=== PATIENT | male | born 1965 | race Caucasian/White ===

== ENCOUNTER 2019-11-12 16:15 | IRF | payer MEDICAID, SELFPAY ==
[2019-11-12 16:10] VITALS: BP 128/70; PULSE 18; RESP 94; TEMP 36.1; O2SAT 100; BMI 28.0
[2019-11-12 16:31] VITALS: BMI 28.0
--- NOTE | 2019-11-12 18:19 | ADMGEN ---
This patient, Jimbo Osborn, was admitted to [facility] Room 226-02. Patient/family oriented to hospital policies and general routines including ID bracelet, bed and alarms, visiting hours, pain management, procedures, bathroom and other care routines, personal items, smoking policy, room service/diet, and visiting hours. Valuables list has been completed. Information on how to activate the Rapid Response Team has been discussed. Patient/Family are encouraged to report perceived risks to care and to ask questions if they do not understand what they are told or what they should do.
[2019-11-12] MEDS: ACETAMINOPHEN 500 MG TABLET 1000 MG PO ×2 (18:26→23:33)
[2019-11-12] MEDS: ENOXAPARIN 40 MG/0.4 ML SYRINGE SUB-Q (20:06)
[2019-11-12 22:00] VITALS: BP 140/61; PULSE 94; RESP 17; TEMP 36.1; O2SAT 100
[2019-11-13 04:55] LABS: Basophils Percent Auto 0.5 % (0.2-1.2); Eosinophils Absolute Auto 0.5 K/mm3 (0-0.3); Eosinophils Percent Auto 6.4 % (0-4.4); Hemoglobin 10.6 g/dL (14.0-18.0); Immature Granulocyte Absolute 0.04 K/mm3 (0.00-0.031); Immature Granulocyte Percent A 0.5 % (0-0.5); Lymphocytes Absolute Auto 1.67 K/mm3 (0.9-3.2); Lymphocytes Percent Auto 22.8 % (18.3-44.2); Mean Corpuscular HGB Conc 34.2 g/dl (32-36); Mean Corpuscular Hemoglobin 31.8 pg (26-34); Mean Corpuscular Volume 93.1 fl (80-100); Mean Platelet Volume 8.3 fl (7.4-10.4); Monocytes Absolute Auto 0.8 K/mm3 (0.1-0.6); Monocytes Percent Auto 11.2 % (2.6-8.5); Neutrophils Absolute Auto 4.3 K/mm3 (1.3-6.7); Neutrophils Percent Auto 58.6 % (45.5-73.1); Platelet Count Result 488 k/mm3 (150-375); Red Blood Count 3.33 M/mm3 (4.6-6.20); Red Cell Distribution Width 17.4 % (11.5-14.5); White Blood Count 7.3 K/mm3 (4.5-10.0)
[2019-11-13 05:11] LABS: Blood Urea Nitrogen 7 mg/dL (9-20); Carbon Dioxide 25 mmol/L (22-30); Chloride 90 mmol/L (98-107); Estimated CRCL calculation 197 ml/min; Estimated Glomerular Filt Rate > 60; Glucose 103 mg/dL (75-110); Potassium 4.3 mmol/L (3.4-5.0); Sodium 124 mmol/L (137-145)
[2019-11-13 05:52] VITALS: BP 120/64; PULSE 97; RESP 18; TEMP 36.3; O2SAT 100
[2019-11-13] MEDS: ACETAMINOPHEN 500 MG TABLET 1000 MG PO ×3 (06:02→17:57)
[2019-11-13] MEDS: FOLIC ACID 1 MG TABLET PO (10:11)
[2019-11-13] MEDS: THERAPEUTIC MULTIVITAMINS/MINERALS TAB (*BKC) 1 TABLET PO (10:11)
[2019-11-13] MEDS: lisinopriL 20 MG TABLET PO (10:11)
[2019-11-13] MEDS: NICOTINE (*PBKC) 21 MG PATCH 1 PATCH TRANSDERM (10:11)
[2019-11-13] MEDS: THIAMINE HCL 100 MG TABLET PO (10:12)
[2019-11-13] MEDS: polyethylene glycoL 3350 17 GM POWD.PACK PO (10:12)
--- NOTE | 2019-11-13 11:00 | WPDREHABHP ---
H&P: HPI History of Present Illness Chief complaint: Right AKA Narrative: Jimbo Osborn is a 54 year old male HISTORY OF PRESENT ILLNESS: The patient's primary rehab impairment category is amputation lower extremity The etiologic diagnosis is gangrene to right lower extremity I saw this patient [id number] on November 13, 2019 at 11:00 a.m. The patient is a 53-year-old right-handed gentleman with a past medical history of peripheral artery disease, hypertension, and alcohol abuse who presented to [facility] on November 06, 2019 for and semi elective right above knee amputation. The patient was directly admitted to vascular surgery for worsening right lower extremity wounds with gangrene. Vasculature as recommended surgical intervention. Patient underwent an above the knee amputation with on November 07, 2019. Postoperatively the patient has experienced hyponatremia, fever, and leukocytosis. His hyponatremia was improved with free water restriction and is currently 126 when the patient was screened however it is 124 here at our hospital. The patient has been afebrile. Leukocytosis has improved to 8800 currently UA was negative chest x-ray with minimal right basilar atelectasis. The patient denied any pain since removal of his leg but does have an or oral pain medication if he needs it. He has demonstrated no signs of alcohol withdrawal and has been counseled by physician this hospitalization on his need for alcohol and tobacco cessation. The patient is awake and alert x4 he is on Lovenox 40 milligram daily for DVT prophylaxis. amputation shield is in place to right lower extremity Therapy was initiated at the acute care facility and the patient transferred to us from [facility] on November 12, 2019 FALLS OR SURGERIES: The patient has had major surgeries in the 100 days prior to admission. They had falls in the past year. They had falls with injury in the past year. PAST MEDICAL HISTORY: alcohol abuse, gangrene, ischemic toe, right foot, 4th digit, lower extremity edema, pleural effusion peripheral vascular disease peripheral neuropathy PAST SURGICAL HISTORY: 4th and 5th the right metatarsal amputation, 4th and 5th right toe amputation revision with wound VAC placement, thoracentesis, tonsillectomy SOCIAL HISTORY: current every day smoker, alcohol use, no drug abuse. FAMILY HISTORY: Is not related to patient's present clinical condition PRIOR LEVEL OF FUNCTION: Eating was INDEPENDENT Oral Care was INDEPENDENT Toileting Hygiene was INDEPENDENT Shower/Bathing was INDEPENDENT Upper Body Dressing was INDEPENDENT Lower Body Dressing was INDEPENDENT Donning/[place] Footwear was INDEPENDENT Rolling Left and Right was INDEPENDENT Sit to Lying was INDEPENDENT Lying to Sitting was INDEPENDENT Sit to Stand was INDEPENDENT Bed to Chair Transfers was INDEPENDENT Toilet Transfers was INDEPENDENT Walking was INDEPENDENT 750 feet with rolling walker Wheelchair Mobility was NOT APPLICABLE PRIOR TO ADMISSION Stairs were INDEPENDENT CURRENT LEVEL OF FUNCTION: Eating was independent Oral Care was partial assistance Toileting Hygiene was partial cyst Shower/Bathing was partial assistance Upper Body Dressing was partial assistance Lower Body Dressing was partial assistance Donning/[place] Footwear was partial assistance Rolling Left and Right was supervision Sit to Lying was supervision Lying to Sitting was supervision Sit to Stand was partial cyst Bed to Chair Transfers were partial status Toilet Transfers were partial assistance Walking was substantial assistance for 1 foot with rolling walker Wheelchair Mobility was not tested Stairs were not tested GOALS: Our therapists will evaluate the patient and establish the goals. However, upon pre-admission screening, the expected goals were to be INDEPENDENT with self-care, INDEPENDENT with transfers, an
[2019-11-13 14:00] VITALS: BP 103/53; PULSE 108; RESP 18; TEMP 36.2; O2SAT 98
[2019-11-13 14:15] VITALS: BMI 28.0
[2019-11-13] MEDS: ENOXAPARIN 40 MG/0.4 ML SYRINGE SUB-Q (21:00)
[2019-11-13 22:00] VITALS: BP 100/65; PULSE 87; RESP 18; TEMP 36.3; O2SAT 93
[2019-11-14] MEDS: ACETAMINOPHEN 500 MG TABLET 1000 MG PO ×4 (03:46→17:44)
[2019-11-14 05:23] LABS: Blood Urea Nitrogen 11 mg/dL (9-20); Calcium 9.8 mg/dL (8.4-10.2); Carbon Dioxide 29 mmol/L (22-30); Chloride 89 mmol/L (98-107); Estimated CRCL calculation 137 ml/min; Estimated Glomerular Filt Rate > 60; Glucose 102 mg/dL (75-110); Potassium 4.6 mmol/L (3.4-5.0); Sodium 128 mmol/L (137-145)
[2019-11-14 06:00] VITALS: BP 122/66; PULSE 93; RESP 18; TEMP 36.6; O2SAT 99
[2019-11-14 08:00] VITALS: PULSE 93; RESP 18; O2SAT 98
[2019-11-14] MEDS: THIAMINE HCL 100 MG TABLET PO (10:18)
[2019-11-14] MEDS: polyethylene glycoL 3350 17 GM POWD.PACK PO (10:19)
[2019-11-14] MEDS: THERAPEUTIC MULTIVITAMINS/MINERALS TAB (*BKC) 1 TABLET PO (10:19)
[2019-11-14] MEDS: lisinopriL 20 MG TABLET PO (10:19)
[2019-11-14] MEDS: NICOTINE (*PBKC) 21 MG PATCH 1 PATCH TRANSDERM (10:19)
[2019-11-14] MEDS: FOLIC ACID 1 MG TABLET PO (10:19)
--- NOTE | 2019-11-14 12:20 | WPDNEURORHBP ---
Subjective Date/time seen: 11/14/19 12:20 Interval history: patient is doing fairly well his hyponatremia although still present is better than yesterday No new complaints raised Review of Systems Constitutional: Constitutional: Reports no additional constitutional complaints Eyes: Eyes: Reports no additional eye complaints ENT: Reports system reviewed and no additional complaints, except as documented Cardiovascular: Cardiovascular: Reports no additional cardiovascular complaints Respiratory: Respiratory: Reports no additional respiratory complaints Gastrointestinal: Gastrointestinal: Reports no additional gastrointestinal complaints Genitourinary: Genitourinary: Reports no additional male genitourinary complaints Musculoskeletal: Musculoskeletal: Reports no additional musculoskeletal complaints Integumentary/Breasts: Skin/Breast: Reports system reviewed and no additional complaints, except as docu Neurologic: Reports system reviewed and no additional complaints, except as documented Psychiatric: Psychiatric: Reports no additional psychiatric complaints Functional Status Ambulation Ability Ability to Ambulate 10 Feet: Contact Guard Ability to Ambulate 50 Feet With 2 Turns: Minimum Assistance X 1 Ambulation Assistive Devices: Walker, Wheeled Transfers Ability Ability to Transfer In/Out of Chair: Minimum Assistance X 1 Exam Const: General: comfortable and no acute distress HENMT: General nose exam: Normal nares present Mouth: Yes moist mucous membranes Eyes: General: appearance normal, both eyes and all related structures Neck: Neck: supple and no JVD Resp: Effort & Inspection: normal respiratory effort Auscultation: clear to auscultation bilaterally Cardio: Rate: regular rate Rhythm: regular rhythm GI: GI Palp: Yes Soft to palpation Auscultation: normal bowel sounds : Male General Exam: Yes normal external exam Skin: General skin exam: normal color and no rashes or lesions noted Neuro: Other: patient's mental status is normal cranial exam is normal he has generalized decrease in the strength of both upper lower extremities along with the right above the knee amputation with evidence of peripheral neuropathy and peripheral vascular disease Extrem: Other: right above knee amputation Psych: Mental Status: mental status grossly normal Objective Data Vital Signs Vital Signs: Vital Signs - 24 hr 11/13/19 14:00 11/13/19 22:00 11/14/19 06:00 Temperature 36.2 C L 36.3 C L 36.6 C Pulse Rate 108 H 87 93 Respiratory Rate 18 18 18 Blood Pressure 103/53 L 100/65 122/66 Pulse Oximetry 98 93 99 Intake/Output Intake/Output: Intake & Output 11/11/19 11/12/19 11/13/19 11/14/19 23:59 23:59 23:59 23:59 Intake Total 240 600 480 Balance 240 600 480 Meds/Results Medications: Active Medications Generic Name Dose Route Start Last Admin Trade Name Freq PRN Reason Stop Dose Admin Acetaminophen 1,000 mg 11/12/19 18:00 11/14/19 05:55 Tylenol Tablet PO 1,000 mg Q6HR HUBERT Administration Albuterol 2 puff 11/12/19 17:16 Proventil Hfa INHALATION Q6H PRN Wheezing Enoxaparin Sodium 40 mg 11/12/19 21:00 11/13/19 21:00 Lovenox SUB-Q 40 mg HS HUBERT Administration Folic Acid 1 mg 11/13/19 09:00 11/14/19 10:19 Folic Acid PO 1 mg DAILY HUBERT Administration Lisinopril 20 mg 11/13/19 09:00 11/14/19 10:19 Prinivil PO 20 mg DAILY HUBERT Administration Methocarbamol 500 mg 11/12/19 17:16 Robaxin PO BID PRN Muscle Spasm Multivitamins/Calcium 1 tablet 11/13/19 09:00 11/14/19 10:19 Therapeutic Multivitamins/Minerals PO 1 tablet DAILY HUBERT Administration Nicotine 1 patch 11/13/19 09:00 11/14/19 10:19 Nicoderm Cq 21 Mg TRANSDERM 1 patch DAILY HUBERT Administration Polyethylene Glycol 17 gm 11/13/19 09:00 11/14/19 10:19 Miralax PO 17 gm DAILY HUBERT Administration Thiamine HCl 100 mg 11/13/19 09:00 0
[2019-11-14 14:00] VITALS: BP 111/61; PULSE 93; RESP 18; TEMP 36.6; O2SAT 98
[2019-11-14 20:10] LABS: Glucose Point of Care 112 (65-105)
[2019-11-14] MEDS: ENOXAPARIN 40 MG/0.4 ML SYRINGE SUB-Q (20:44)
[2019-11-14 22:00] VITALS: BP 107/67; PULSE 60; RESP 19; TEMP 36.4; O2SAT 97
[2019-11-15] MEDS: ACETAMINOPHEN 500 MG TABLET 1000 MG PO ×4 (00:20→23:50)
[2019-11-15 06:00] VITALS: BP 126/69; PULSE 83; RESP 18; TEMP 36.3; O2SAT 97
[2019-11-15] MEDS: THIAMINE HCL 100 MG TABLET PO (09:12)
[2019-11-15] MEDS: polyethylene glycoL 3350 17 GM POWD.PACK PO (09:12)
[2019-11-15] MEDS: FOLIC ACID 1 MG TABLET PO (09:12)
[2019-11-15] MEDS: THERAPEUTIC MULTIVITAMINS/MINERALS TAB (*BKC) 1 TABLET PO (09:12)
[2019-11-15] MEDS: NICOTINE (*PBKC) 21 MG PATCH 1 PATCH TRANSDERM (09:12)
[2019-11-15] MEDS: lisinopriL 20 MG TABLET PO (09:12)
--- NOTE | 2019-11-15 12:50 | RPD ---
INDIVIDUALIZED PLAN OF CARE FOR Jimbo Osborn Brief Synthesis of Pre-Admission Screen, Post-Admission Evaluation and Therapy Evaluations: The patient presents to rehab with gangrene to right lower extremity. Comorbidities include status post right above knee amputation, hypertension, diastolic dysfunction (impaired relaxation), peripheral arterial disease, gangrene, obesity, hyponatremia.The patient requires physician services for medical oversight, management of post-op complications in the setting of present comorbidities, management of hyponatremia and pain management. Post-op complications have included leukocytosis, fever, and hyponatremia. The patient requires nursing services for anticoagulation therapy, DVT prophylactics, infection protection, medication management and education, pressure relief, and wound care. Deficits include:ADLs, Balance, Endurance, Mobility, Pain Management, ROM, Safety, Strength,Transfers Building Inspection Engineer/Case Management for: Discharge Planning and Patient/Family Counseling Physical Therapy: 5 days per week for 90 minutes. Treatments may include: Therapeutic Exercise, Gait Training, Neuromuscular Re-education, Transfer Training, Community Reintegration, Bed Mobility, Patient/Family Education, Wheelchair Mobility Group Therapy/Concurrent Therapy Rationales: -Improve attention span during functional activities in a distracted environment. -Enhance problem solving and/or adequate judgment skills during functional activities in a distracted environment. -Promote increased safety awareness in a distracted environment to reduce fall risk with functional tasks, transfers, and ambulation to allow a more safe, self-sufficient return to the home environment. -Improve dynamic balance skills to promote safety and independence with functional activities in a distracted environment for maximum gain. Occupational Therapy: 5 days per week for 90 minutes. Treatments may include: Therapeutic Exercise, Therapeutic Activity, Cognitive Training, Self-Care Transfer Training, Community Reintegration, Home Management, Patient/Family Education, Wheelchair Mobility Training, Energy Conservation Training Group Therapy/Concurrent Therapy Rationales: -Allow therapist to observe and teach generalization and carry-over of skills learned in individual therapy. -Enhance problem solving and sequencing skills during therapeutic activities in a distracted environment. -Promote increased safety awareness in a realistic setting to reduce fall risk with functional tasks due to visual and verbal distractions. -Increase functional level with ADLs, ADL transfers and use of adaptive equipment through therapeutic activities with others while promoting safety to allow a more safe, self-sufficient return home. Medical Prognosis: Good Anticipated Length of Stay: 7 days Rehab Goals: Eating Goal: 06-Independent Oral Hygiene Goal: 06-Independent Toileting Hygiene Goal: 06-Independent Shower/Bathe Self Goal: 05-Setup or Clean Up Assistance Upper Body Dressing Goal: 06-Independent Lower Body Dressing Goal: 06-Independent Putting On/Taking Off Footwear Goal: 06-Independent Rolling Left and Right Goal: 06-Independent Sit to Lying Goal: 06-Independent Lying to Sitting on Side of Bed Goal: 06-Independent Sit to Stand Goal: 06-Independent Chair/[id number] Transfer Goal: 06-Independent Toilet Transfer Goal: 06-Independent Car Transfer Goal: 06-Independent Walk 10' Goal: 06-Independent Walk 50' with Two Turns Goal: 06-Independent Walk 150' Goal: 03-Partial/Moderate Assistance Walk 10' on Uneven Surface Goal: 06-Independent 1 Step (Curb) Goal: 04-Supervision or Touching Assistance 4 Steps Goal: 04-Supervision or Touching Assistance 12 Steps Goal Score: 09-Not Applicable Picking Up Object Goal: 03-Partial/Moderate Assistance Wheel 50' with Two Turns Score: 06-Independent Wheel 150' Goal: 06-Independent Anticipated discharge destination: Home
--- NOTE | 2019-11-15 13:26 | PCDIET ---
Nutrition Follow-Up Complete: Nutrition Diagnosis: Increased protein/calorie needs related to increased demands for healing as evidenced by recent AKA, right leg. Nutrition Goals: Intakes >75%, Td acceptance Goals met. Intakes 75-100% of meals on regular diet which is appropriate. Confirmed that patient consumed 100% of Td with lunch tray. Last recorded weight is 99 kg. Recommend obtaining new weight. Bowel Motility: Last documented bowel movement 11/12/19. Labs Reviewed: Glu (112) Meds Noted: Folic Acid, Multivitamin with minerals, Miralax, Thiamine Additional Notes: Right AKA incision well approximated; no pressure sores documented. Will continue to monitor with same goals. Nutrition Monitoring and Evaluation: Follow up in 7 days.
[2019-11-15 14:00] VITALS: BP 112/60; PULSE 112; RESP 20; TEMP 36.2; O2SAT 100
--- NOTE | 2019-11-15 14:31 | WPDNEURORHBP ---
Subjective Date/time seen: 11/15/19 14:31 Interval history: patient is here for right above the knee amputation, he is doing very well in the rehab and the therapy does not have any new specific complaint next Particularly denies any confusional state chest pain shortness of nausea vomiting or restart the P Review of Systems Constitutional: Constitutional: Reports no additional constitutional complaints Eyes: Eyes: Reports no additional eye complaints ENT: Reports system reviewed and no additional complaints, except as documented Cardiovascular: Cardiovascular: Reports no additional cardiovascular complaints Respiratory: Respiratory: Reports no additional respiratory complaints Gastrointestinal: Gastrointestinal: Reports no additional gastrointestinal complaints Genitourinary: Genitourinary: Reports no additional male genitourinary complaints Musculoskeletal: Musculoskeletal: Reports no additional musculoskeletal complaints Integumentary/Breasts: Skin/Breast: Reports system reviewed and no additional complaints, except as docu Neurologic: Reports system reviewed and no additional complaints, except as documented Psychiatric: Psychiatric: Reports no additional psychiatric complaints Functional Status Ambulation Ability Ability to Ambulate 10 Feet: Contact Guard Ability to Ambulate 50 Feet With 2 Turns: Contact Guard Ability to Ambulate 150 Feet: Contact Guard Ambulation Assistive Devices: Walker, Wheeled Transfers Ability Ability to Transfer In/Out of Chair: Minimum Assistance X 1 Exam Const: General: comfortable and no acute distress HENMT: General nose exam: Normal nares present Mouth: Yes moist mucous membranes Eyes: General: appearance normal, both eyes and all related structures Neck: Neck: supple and no JVD Resp: Effort & Inspection: normal respiratory effort Auscultation: clear to auscultation bilaterally Cardio: Rate: regular rate Rhythm: regular rhythm GI: GI Palp: Yes Soft to palpation Auscultation: normal bowel sounds Skin: General skin exam: normal color and no rashes or lesions noted Neuro: Other: patient has right [id number] amputation and evidence of peripheral neuropathy and peripheral vascular disease The mental status is normal likewise cranial examination is also not Extrem: Other: right above the knee amputation Psych: Mental Status: mental status grossly normal Objective Data Vital Signs Vital Signs: Vital Signs - 24 hr 11/14/19 22:00 11/15/19 06:00 Temperature 36.4 C 36.3 C L Pulse Rate 60 83 Respiratory Rate 19 18 Blood Pressure 107/67 126/69 Pulse Oximetry 97 97 Intake/Output Intake/Output: Intake & Output 01/28/11/13/19 11/14/19 11/15/19 23:59 23:59 23:59 23:59 Intake Total 893 756 3029 480 Balance 448 265 4771 480 Meds/Results Medications: Active Medications Generic Name Dose Route Start Last Admin Trade Name Freq PRN Reason Stop Dose Admin Acetaminophen 1,000 mg 11/12/19 18:00 11/15/19 05:20 Tylenol Tablet PO 1,000 mg Q6HR HUBERT Administration Albuterol 2 puff 11/12/19 17:16 Proventil Hfa INHALATION Q6H PRN Wheezing Enoxaparin Sodium 40 mg 11/12/19 21:00 11/14/19 20:44 Lovenox SUB-Q 40 mg HS HUBERT Administration Folic Acid 1 mg 11/13/19 09:00 11/15/19 09:12 Folic Acid PO 1 mg DAILY HUBERT Administration Lisinopril 20 mg 11/13/19 09:00 11/15/19 09:12 Prinivil PO 20 mg DAILY HUBERT Administration Methocarbamol 500 mg 11/12/19 17:16 Robaxin PO BID PRN Muscle Spasm Multivitamins/Calcium 1 tablet 11/13/19 09:00 11/15/19 09:12 Therapeutic Multivitamins/Minerals PO 1 tablet DAILY HUBERT Administration Nicotine 1 patch 11/13/19 09:00 11/15/19 09:12 Nicoderm Cq 21 Mg TRANSDERM 1 patch DAILY HUBERT Administration Polyethylene Glycol 17 gm 11/13/19 09:00 11/15/19 09:12 Miralax PO 17 gm DAILY HUBERT Administration Thiamine HCl 100 mg 11/13
[2019-11-15] MEDS: ENOXAPARIN 40 MG/0.4 ML SYRINGE SUB-Q (20:27)
[2019-11-15 22:00] VITALS: BP 105/73; PULSE 86; RESP 19; TEMP 36.3; O2SAT 100
[2019-11-16 05:11] LABS: Blood Urea Nitrogen 19 mg/dL (9-20); Calcium 9.7 mg/dL (8.4-10.2); Carbon Dioxide 26 mmol/L (22-30); Chloride 90 mmol/L (98-107); Estimated CRCL calculation 162 ml/min; Estimated Glomerular Filt Rate > 60; Glucose 102 mg/dL (75-110); Potassium 4.7 mmol/L (3.4-5.0); Sodium 129 mmol/L (137-145)
[2019-11-16 06:00] VITALS: BP 91/64; PULSE 90; RESP 18; TEMP 36.2; O2SAT 98
[2019-11-16] MEDS: ACETAMINOPHEN 500 MG TABLET 1000 MG PO ×3 (06:16→17:14)
[2019-11-16] MEDS: NICOTINE (*PBKC) 21 MG PATCH 1 PATCH TRANSDERM (08:36)
[2019-11-16] MEDS: THERAPEUTIC MULTIVITAMINS/MINERALS TAB (*BKC) 1 TABLET PO (08:36)
[2019-11-16] MEDS: FOLIC ACID 1 MG TABLET PO (08:37)
[2019-11-16] MEDS: THIAMINE HCL 100 MG TABLET PO (08:37)
[2019-11-16] MEDS: lisinopriL 20 MG TABLET PO (08:37)
[2019-11-16] MEDS: SODIUM CHLORIDE 1 GM TABLET PO ×2 (12:41→17:15)
[2019-11-16 14:00] VITALS: BP 140/58; PULSE 84; RESP 18; TEMP 36.6; O2SAT 97
[2019-11-16] MEDS: ENOXAPARIN 40 MG/0.4 ML SYRINGE SUB-Q (20:04)
[2019-11-16 21:29] VITALS: BP 102/62; PULSE 87; RESP 20; TEMP 36.1; O2SAT 100
[2019-11-17] MEDS: ACETAMINOPHEN 500 MG TABLET 1000 MG PO ×4 (05:44→23:51)
[2019-11-17 08:00] VITALS: PULSE 80; RESP 20; O2SAT 97
[2019-11-17] MEDS: FOLIC ACID 1 MG TABLET PO (10:00)
[2019-11-17] MEDS: THIAMINE HCL 100 MG TABLET PO (10:01)
[2019-11-17] MEDS: THERAPEUTIC MULTIVITAMINS/MINERALS TAB (*BKC) 1 TABLET PO (10:01)
[2019-11-17] MEDS: SODIUM CHLORIDE 1 GM TABLET PO ×3 (10:01→17:50)
[2019-11-17] MEDS: NICOTINE (*PBKC) 21 MG PATCH 1 PATCH TRANSDERM (10:02)
[2019-11-17] MEDS: lisinopriL 20 MG TABLET PO (10:02)
[2019-11-17 14:00] VITALS: BP 124/68; PULSE 80; RESP 20; TEMP 36.6; O2SAT 97
[2019-11-17] MEDS: ENOXAPARIN 40 MG/0.4 ML SYRINGE SUB-Q (21:03)
[2019-11-17 22:00] VITALS: BP 92/61; PULSE 102; RESP 19; TEMP 36.5; O2SAT 99
[2019-11-18] MEDS: ACETAMINOPHEN 500 MG TABLET 1000 MG PO ×4 (05:58→23:24)
[2019-11-18 06:00] VITALS: BP 114/65; PULSE 86; RESP 19; TEMP 36.5; O2SAT 99
[2019-11-18 06:02] LABS: Blood Urea Nitrogen 19 mg/dL (9-20); Calcium 9.3 mg/dL (8.4-10.2); Carbon Dioxide 27 mmol/L (22-30); Chloride 92 mmol/L (98-107); Estimated CRCL calculation 137 ml/min; Estimated Glomerular Filt Rate > 60; Glucose 94 mg/dL (75-110); Potassium 4.2 mmol/L (3.4-5.0); Sodium 129 mmol/L (137-145)
[2019-11-18] MEDS: NICOTINE (*PBKC) 21 MG PATCH 1 PATCH TRANSDERM (09:00)
[2019-11-18] MEDS: lisinopriL 20 MG TABLET PO (09:42)
[2019-11-18] MEDS: THIAMINE HCL 100 MG TABLET PO (09:42)
[2019-11-18] MEDS: THERAPEUTIC MULTIVITAMINS/MINERALS TAB (*BKC) 1 TABLET PO (09:42)
[2019-11-18] MEDS: FOLIC ACID 1 MG TABLET PO (09:42)
[2019-11-18] MEDS: SODIUM CHLORIDE 1 GM TABLET PO ×3 (09:42→17:34)
--- NOTE | 2019-11-18 09:46 | WPDNEURORHBP ---
Subjective Date/time seen: 11/18/19 09:46 Review of Systems Review of Systems: All systems reviewed & are unremarkable except as noted in HPI and below Functional Status Ambulation Ability Ability to Ambulate 10 Feet: Contact Guard Ability to Ambulate 50 Feet With 2 Turns: Contact Guard Ability to Ambulate 150 Feet: Contact Guard Ambulation Assistive Devices: Walker, Wheeled Transfers Ability Ability to Transfer In/Out of Chair: Minimum Assistance X 1 Exam Const: General: comfortable and no acute distress Eyes: General: appearance normal, both eyes and all related structures Eyelids: eyelids normal Conjunctivae: conjunctivae normal Sclera: sclerae normal Pupils: Equal, round and reactive pupils present EOM: EOMs intact bilaterally Neck: Neck: full ROM Resp: Auscultation: clear to auscultation bilaterally Cardio: Rate: regular rate Rhythm: regular rhythm GI: Auscultation: normal bowel sounds Skin: General skin exam: no rashes or lesions noted Wounds: amputation site (clean) Neuro: General: patient oriented x3, moves all extremities, no focal motor deficits and CN's II-XI intact bilaterally Cranial nerves: Yes Equal, round and reactive pupils present, Yes Bilaterally intact EOM present, Yes Nystagmus not present, Yes Normal facial strength present, Yes Midline tongue present, Yes Normal hearing present, Yes Ability to bilaterally rotate head present and Yes Ability to bilaterally elevate shoulders present Cognition (Neuro): normal cognition Speech: normal speech Gait exam (Neuro): Unable to assess gait Motor exam (neuro): 5/5 motor strength present throughout Sensory Exam: Sensory deficit (Neuro) (neuropathy) Psych: Appearance: grossly normal Objective Data Vital Signs Vital Signs: Vital Signs - 24 hr 11/17/19 14:00 11/17/19 22:00 11/18/19 06:00 Temperature 36.6 C 36.5 C 36.5 C Pulse Rate 80 102 H 86 Respiratory Rate 20 19 19 Blood Pressure 124/68 92/61 L 114/65 Pulse Oximetry 97 99 99 Intake/Output Intake/Output: Intake & Output 11/15/19 11/16/19 11/17/19 11/18/19 23:59 23:59 23:59 23:59 Intake Total 1320 480 480 240 Balance 1320 480 480 240 Meds/Results Medications: Active Medications Generic Name Dose Route Start Last Admin Trade Name Freq PRN Reason Stop Dose Admin Acetaminophen 1,000 mg 11/12/19 18:00 11/18/19 05:58 Tylenol Tablet PO 1,000 mg Q6HR HUBERT Administration Albuterol 2 puff 11/12/19 17:16 Proventil Hfa INHALATION Q6H PRN Wheezing Enoxaparin Sodium 40 mg 11/12/19 21:00 11/17/19 21:03 Lovenox SUB-Q 40 mg HS HUBERT Administration Folic Acid 1 mg 11/13/19 09:00 11/18/19 09:42 Folic Acid PO 1 mg DAILY HUBERT Administration Lisinopril 20 mg 11/13/19 09:00 11/18/19 09:42 Prinivil PO 20 mg DAILY HUBERT Administration Methocarbamol 500 mg 11/12/19 17:16 Robaxin PO BID PRN Muscle Spasm Multivitamins/Calcium 1 tablet 11/13/19 09:00 11/18/19 09:42 Therapeutic Multivitamins/Minerals PO 1 tablet DAILY HUBERT Administration Nicotine 1 patch 11/13/19 09:00 11/17/19 10:02 Nicoderm Cq 21 Mg TRANSDERM 1 patch DAILY HUBERT Administration Polyethylene Glycol 17 gm 11/13/19 09:00 11/18/19 09:43 Miralax PO Not Given DAILY HUBERT Sodium Chloride 1 gm 11/16/19 13:00 11/18/19 09:42 Sodium Chloride PO 1 gm TID HUBERT Administration Thiamine HCl 100 mg 11/13/19 09:00 11/18/19 09:42 Vitamin B-1 PO 100 mg DAILY HUBERT Administration Labs Labs: Laboratory Results - last 24 hr 11/18/19 05:28 Sodium 129 L Potassium 4.2 Chloride 92 L Carbon Dioxide 27 BUN 19 Creatinine 0.60 L Estim Creat Clear Calc 137 Estimated GFR > 60 Glucose 94 Calcium 9.3 Progress Note: A&P Assessment and Plan (1) Alcoholism: Code(s): F10.20 - Alcohol dependence, uncomplicated Status: Acute (2) Hyponatremia: Code(s): E87.1 - Hypo-osmolality and hy
[2019-11-18 14:00] VITALS: BP 104/61; PULSE 91; RESP 18; TEMP 36.7; O2SAT 97
[2019-11-18 14:59] VITALS: BP 104/61; PULSE 91; RESP 18; TEMP 36.7; O2SAT 97
[2019-11-18] MEDS: ENOXAPARIN 40 MG/0.4 ML SYRINGE SUB-Q (20:17)
[2019-11-18 20:30] VITALS: BP 112/57; PULSE 90; RESP 17; TEMP 36.2; O2SAT 100
[2019-11-19] MEDS: ACETAMINOPHEN 500 MG TABLET 1000 MG PO ×3 (05:34→17:11)
[2019-11-19 05:48] VITALS: BP 114/61; PULSE 76; RESP 20; TEMP 36.4; O2SAT 97
[2019-11-19] MEDS: FOLIC ACID 1 MG TABLET PO (08:08)
[2019-11-19] MEDS: THERAPEUTIC MULTIVITAMINS/MINERALS TAB (*BKC) 1 TABLET PO (08:09)
[2019-11-19] MEDS: lisinopriL 20 MG TABLET PO (08:09)
[2019-11-19] MEDS: THIAMINE HCL 100 MG TABLET PO (08:09)
[2019-11-19] MEDS: SODIUM CHLORIDE 1 GM TABLET PO ×3 (10:54→17:19)
[2019-11-19] MEDS: NICOTINE (*PBKC) 21 MG PATCH 1 PATCH TRANSDERM (10:54)
[2019-11-19 14:00] VITALS: BP 101/54; PULSE 104; RESP 20; TEMP 36.3; O2SAT 100
--- NOTE | 2019-11-19 15:25 | PCCCNOTE ---
On 11/19/19, the student, [Vern Smith ], provided care and completed [facility] documentation on this patient. I have reviewed the student's documentation and agree with the findings.
--- NOTE | 2019-11-19 17:00 | WPDNEURORHBP ---
Subjective Date/time seen: 11/19/19 17:00 Interval history: this patient is here on the rehab because of right above the knee amputation doing very well his sodium is 129 and best where he usually sits he has been able to walk with a walker 150 feet denies any fever chills sore throat or any sign of infection denies any chest pain shortness of breath nausea vomiting. Review of Systems Constitutional: Constitutional: Reports no additional constitutional complaints Eyes: Eyes: Reports no additional eye complaints ENT: Reports system reviewed and no additional complaints, except as documented Cardiovascular: Cardiovascular: Reports no additional cardiovascular complaints Respiratory: Respiratory: Reports no additional respiratory complaints Gastrointestinal: Gastrointestinal: Reports no additional gastrointestinal complaints Genitourinary: Genitourinary: Reports no additional male genitourinary complaints Musculoskeletal: Musculoskeletal: Reports no additional musculoskeletal complaints Integumentary/Breasts: Skin/Breast: Reports system reviewed and no additional complaints, except as docu Neurologic: Reports system reviewed and no additional complaints, except as documented Psychiatric: Psychiatric: Reports no additional psychiatric complaints Functional Status Ambulation Ability Ability to Ambulate 10 Feet: Standby Assistance Ability to Ambulate 50 Feet With 2 Turns: Contact Guard Ability to Ambulate 150 Feet: Contact Guard Ambulation Assistive Devices: Walker, Wheeled Transfers Ability Ability to Transfer In/Out of Chair: Minimum Assistance X 1 Exam Const: General: comfortable and no acute distress HENMT: General nose exam: Normal nares present Mouth: Yes moist mucous membranes Eyes: General: appearance normal, both eyes and all related structures Neck: Neck: supple and no JVD Resp: Effort & Inspection: normal respiratory effort Auscultation: clear to auscultation bilaterally Cardio: Rate: regular rate Rhythm: regular rhythm GI: GI Palp: Yes Soft to palpation Auscultation: normal bowel sounds Skin: General skin exam: normal color and no rashes or lesions noted Neuro: Other: Mental status examination normal cranial exam shins normal motor strength is symmetrical FX of the fact that he has a right [id number] amputation he does have evidence of peripheral neuropathy and peripheral vascular disease which is stable Extrem: Other: right AKA Psych: Mental Status: mental status grossly normal Objective Data Vital Signs Vital Signs: Vital Signs - 24 hr 11/18/19 20:30 11/19/19 05:48 11/19/19 14:00 Temperature 36.2 C L 36.4 C L 36.3 C L Pulse Rate 90 76 104 H Respiratory Rate 17 20 20 Blood Pressure 112/57 L 114/61 101/54 L Pulse Oximetry 100 97 100 Intake/Output Intake/Output: Intake & Output 11/16/19 11/17/19 11/18/19 11/19/19 23:59 23:59 23:59 23:59 Intake Total 052 984 8528 840 Balance 019 246 4653 840 Meds/Results Medications: Active Medications Generic Name Dose Route Start Last Admin Trade Name Freq PRN Reason Stop Dose Admin Acetaminophen 1,000 mg 11/12/19 18:00 11/19/19 12:03 Tylenol Tablet PO 1,000 mg Q6HR HUBERT Administration Albuterol 2 puff 11/12/19 17:16 Proventil Hfa INHALATION Q6H PRN Wheezing Enoxaparin Sodium 40 mg 11/12/19 21:00 11/18/19 20:17 Lovenox SUB-Q 40 mg HS HUBERT Administration Folic Acid 1 mg 11/13/19 09:00 11/19/19 08:08 Folic Acid PO 1 mg DAILY HUBERT Administration Lisinopril 20 mg 11/13/19 09:00 11/19/19 08:09 Prinivil PO 20 mg DAILY HUBERT Administration Methocarbamol 500 mg 11/12/19 17:16 Robaxin PO BID PRN Muscle Spasm Multivitamins/Calcium 1 tablet 11/13/19 09:00 11/19/19 08:09 Therapeutic Multivitamins/Minerals PO 1 tablet DAILY HUBERT Administration Nicotine 1 patch 11/13/19 09:00 11/19/19 10:54 Nicoderm Cq 21 Mg TRANSDERM 1 patch DAILY S
[2019-11-19] MEDS: ENOXAPARIN 40 MG/0.4 ML SYRINGE SUB-Q (20:16)
[2019-11-19 22:00] VITALS: BP 116/62; PULSE 87; RESP 19; TEMP 36.3; O2SAT 100
[2019-11-20 04:46] LABS: Basophils Absolute Auto 0.1 K/mm3 (0.0-0.1); Basophils Percent Auto 0.7 % (0.2-1.2); Eosinophils Absolute Auto 0.5 K/mm3 (0-0.3); Eosinophils Percent Auto 5.6 % (0-4.4); Hematocrit 33.8 % (42.0-52.0); Hemoglobin 11.2 g/dL (14.0-18.0); Immature Granulocyte Absolute 0.01 K/mm3 (0.00-0.031); Immature Granulocyte Percent A 0.1 % (0-0.5); Lymphocytes Absolute Auto 2.16 K/mm3 (0.9-3.2); Lymphocytes Percent Auto 26.4 % (18.3-44.2); Mean Corpuscular HGB Conc 33.1 g/dl (32-36); Mean Corpuscular Hemoglobin 31.2 pg (26-34); Mean Corpuscular Volume 94.2 fl (80-100); Mean Platelet Volume 7.9 fl (7.4-10.4); Monocytes Absolute Auto 0.6 K/mm3 (0.1-0.6); Monocytes Percent Auto 7.7 % (2.6-8.5); Neutrophils Absolute Auto 4.9 K/mm3 (1.3-6.7); Neutrophils Percent Auto 59.5 % (45.5-73.1); Platelet Count Result 657 k/mm3 (150-375); Red Blood Count 3.59 M/mm3 (4.6-6.20); Red Cell Distribution Width 17.1 % (11.5-14.5); White Blood Count 8.2 K/mm3 (4.5-10.0)
[2019-11-20 05:11] LABS: Blood Urea Nitrogen 17 mg/dL (9-20); Calcium 9.7 mg/dL (8.4-10.2); Carbon Dioxide 29 mmol/L (22-30); Chloride 92 mmol/L (98-107); Estimated CRCL calculation 137 ml/min; Estimated Glomerular Filt Rate > 60; Glucose 98 mg/dL (75-110); Potassium 4.4 mmol/L (3.4-5.0); Sodium 131 mmol/L (137-145)
[2019-11-20 06:00] VITALS: BP 115/69; PULSE 98; RESP 19; TEMP 36.5; O2SAT 100
[2019-11-20 08:00] VITALS: PULSE 98; RESP 19; O2SAT 100
[2019-11-20] MEDS: SODIUM CHLORIDE 1 GM TABLET PO ×3 (09:15→17:25)
[2019-11-20] MEDS: NICOTINE (*PBKC) 21 MG PATCH 1 PATCH TRANSDERM (09:15)
[2019-11-20] MEDS: polyethylene glycoL 3350 17 GM POWD.PACK PO ×2 (09:17→10:04)
[2019-11-20] MEDS: THERAPEUTIC MULTIVITAMINS/MINERALS TAB (*BKC) 1 TABLET PO (09:55)
[2019-11-20] MEDS: FOLIC ACID 1 MG TABLET PO (09:56)
[2019-11-20] MEDS: lisinopriL 20 MG TABLET PO (09:56)
[2019-11-20] MEDS: THIAMINE HCL 100 MG TABLET PO (10:04)
--- NOTE | 2019-11-20 12:57 | WPDNEURORHBP ---
Subjective Date/time seen: 11/20/19 12:57 Interval history: patient has done well in over rehab and to be discharged tomorrow The site of right above the knee amputation is clean and no significant drainage is noted Patient denies any fevers chills sore throat nausea vomiting etc he is doing very well in the rehab program Review of Systems Constitutional: Constitutional: Reports no additional constitutional complaints Eyes: Eyes: Reports no additional eye complaints ENT: Reports system reviewed and no additional complaints, except as documented Cardiovascular: Cardiovascular: Reports no additional cardiovascular complaints Respiratory: Respiratory: Reports no additional respiratory complaints Gastrointestinal: Gastrointestinal: Reports no additional gastrointestinal complaints Genitourinary: Genitourinary: Reports no additional male genitourinary complaints Musculoskeletal: Musculoskeletal: Reports no additional musculoskeletal complaints Integumentary/Breasts: Skin/Breast: Reports system reviewed and no additional complaints, except as docu Neurologic: Comments: no neurological complaints Psychiatric: Psychiatric: Reports no additional psychiatric complaints Functional Status Ambulation Ability Ability to Ambulate 10 Feet: Standby Assistance Ability to Ambulate 50 Feet With 2 Turns: Standby Assistance Ability to Ambulate 150 Feet: Contact Guard Ambulation Assistive Devices: Walker, Wheeled Transfers Ability Ability to Transfer In/Out of Chair: Minimum Assistance X 1 Exam Const: General: comfortable and no acute distress HENMT: General nose exam: Normal nares present Mouth: Yes moist mucous membranes Eyes: General: appearance normal, both eyes and all related structures Neck: Neck: supple and no JVD Resp: Effort & Inspection: normal respiratory effort Auscultation: clear to auscultation bilaterally Cardio: Rate: regular rate Rhythm: regular rhythm GI: GI Palp: Yes Soft to palpation Auscultation: normal bowel sounds Skin: General skin exam: normal color and no rashes or lesions noted Neuro: Other: mental status is normal, cranial nerve examination are normal, patient is doing very well in the rehab and ambulating of course device and daughter assistance Extrem: Other: right AKA Objective Data Vital Signs Vital Signs: Vital Signs - 24 hr 11/19/19 14:00 11/19/19 22:00 11/20/19 06:00 Temperature 36.3 C L 36.3 C L 36.5 C Pulse Rate 104 H 87 98 Respiratory Rate 20 19 19 Blood Pressure 101/54 L 116/62 115/69 Pulse Oximetry 100 100 100 11/20/19 08:00 Temperature Pulse Rate 98 Respiratory Rate 19 Blood Pressure Pulse Oximetry 100 Intake/Output Intake/Output: Intake & Output 11/17/19 11/18/19 11/19/19 11/20/19 23:59 23:59 23:59 23:59 Intake Total 480 1680 1320 240 Balance 480 1680 1320 240 Meds/Results Medications: Active Medications Generic Name Dose Route Start Last Admin Trade Name Freq PRN Reason Stop Dose Admin Acetaminophen 1,000 mg 11/20/19 02:02 Tylenol Tablet PO Q6H PRN Pain Rated 1-3 Albuterol 2 puff 11/12/19 17:16 Proventil Hfa INHALATION Q6H PRN Wheezing Enoxaparin Sodium 40 mg 11/12/19 21:00 11/19/19 20:16 Lovenox SUB-Q 40 mg HS HUBERT Administration Folic Acid 1 mg 11/13/19 09:00 11/20/19 09:56 Folic Acid PO 1 mg DAILY HUBERT Administration Lisinopril 20 mg 11/13/19 09:00 11/20/19 09:56 Prinivil PO 20 mg DAILY HUBERT Administration Methocarbamol 500 mg 11/12/19 17:16 Robaxin PO BID PRN Muscle Spasm Multivitamins/Calcium 1 tablet 11/13/19 09:00 11/20/19 09:55 Therapeutic Multivitamins/Minerals PO 1 tablet DAILY HUBERT Administration Nicotine 1 patch 11/13/19 09:00 11/20/19 09:15 Nicoderm Cq 21 Mg TRANSDERM 1 patch DAILY HUBERT Administration Polyethylene Glycol 17 gm 11/13/19 09:00 11/20/19 10:04 Miralax PO 17 gm DAILY HUBERT Administration S
[2019-11-20 14:00] VITALS: BP 114/57; PULSE 103; RESP 16; TEMP 36.6; O2SAT 99
[2019-11-20] MEDS: ENOXAPARIN 40 MG/0.4 ML SYRINGE SUB-Q (20:20)
[2019-11-20 21:26] VITALS: BP 101/58; PULSE 92; RESP 20; TEMP 36.5; O2SAT 100
[2019-11-21 06:00] VITALS: BP 105/64; PULSE 92; RESP 20; TEMP 36.1; O2SAT 100
[2019-11-21] MEDS: NICOTINE (*PBKC) 21 MG PATCH 1 PATCH TRANSDERM (08:10)
[2019-11-21] MEDS: THERAPEUTIC MULTIVITAMINS/MINERALS TAB (*BKC) 1 TABLET PO (08:11)
[2019-11-21] MEDS: SODIUM CHLORIDE 1 GM TABLET PO (08:11)
[2019-11-21] MEDS: THIAMINE HCL 100 MG TABLET PO (08:11)
[2019-11-21] MEDS: FOLIC ACID 1 MG TABLET PO (08:11)
[2019-11-21] MEDS: lisinopriL 20 MG TABLET PO (08:11)
--- NOTE | 2019-11-21 11:14 | WPDNEURORHBP ---
Subjective Date/time seen: 11/21/19 11:14 Interval history: patient is doing well has achieved the goals of over rehab and ready to be discharged today medications have been reconciled the patient is happy with the care he received he denies any headache chest pain shortness of breath nausea vomiting abdominal pain or discomfort Review of Systems Constitutional: Constitutional: Reports no additional constitutional complaints Eyes: Eyes: Reports no additional eye complaints ENT: Reports system reviewed and no additional complaints, except as documented Cardiovascular: Cardiovascular: Reports no additional cardiovascular complaints Respiratory: Respiratory: Reports no additional respiratory complaints Gastrointestinal: Gastrointestinal: Reports no additional gastrointestinal complaints Genitourinary: Genitourinary: Reports no additional male genitourinary complaints Musculoskeletal: Musculoskeletal: Reports no additional musculoskeletal complaints Integumentary/Breasts: Skin/Breast: Reports system reviewed and no additional complaints, except as docu Neurologic: Reports system reviewed and no additional complaints, except as documented Psychiatric: Psychiatric: Reports no additional psychiatric complaints Functional Status Ambulation Ability Ability to Ambulate 10 Feet: Standby Assistance Ability to Ambulate 50 Feet With 2 Turns: Standby Assistance Ability to Ambulate 150 Feet: Contact Guard Ambulation Assistive Devices: Walker, Wheeled Transfers Ability Ability to Transfer In/Out of Chair: Minimum Assistance X 1 Exam Const: General: comfortable and no acute distress HENMT: General nose exam: Normal nares present Mouth: Yes moist mucous membranes Eyes: General: appearance normal, both eyes and all related structures Neck: Neck: supple and no JVD Resp: Effort & Inspection: normal respiratory effort Auscultation: clear to auscultation bilaterally Cardio: Rate: regular rate Rhythm: regular rhythm GI: GI Palp: Yes Soft to palpation Auscultation: normal bowel sounds : Male General Exam: Yes normal external exam Skin: General skin exam: normal color and no rashes or lesions noted Neuro: Other: patient remains alert well oriented time place and person with normal speech and language function normal cranial examination and improved in strength in both upper lower extremities with evidence of peripheral neuropathy and peripheral vascular disease Extrem: Other: right AKA Objective Data Vital Signs Vital Signs: Vital Signs - 24 hr 11/20/19 14:00 11/20/19 21:26 11/21/19 06:00 Temperature 36.6 C 36.5 C 36.1 C L Pulse Rate 103 H 92 92 Respiratory Rate 16 20 20 Blood Pressure 114/57 L 101/58 L 105/64 Pulse Oximetry 99 100 100 Intake/Output Intake/Output: Intake & Output 11/18/19 11/19/19 11/20/19 11/21/19 23:59 23:59 23:59 23:59 Intake Total 1680 1320 1680 240 Balance 1680 1320 1680 240 Meds/Results Medications: Active Medications Generic Name Dose Route Start Last Admin Trade Name Freq PRN Reason Stop Dose Admin Acetaminophen 1,000 mg 11/20/19 02:02 Tylenol Tablet PO Q6H PRN Pain Rated 1-3 Albuterol 2 puff 11/12/19 17:16 Proventil Hfa INHALATION Q6H PRN Wheezing Enoxaparin Sodium 40 mg 11/12/19 21:00 11/20/19 20:20 Lovenox SUB-Q 40 mg HS HUBERT Administration Folic Acid 1 mg 11/13/19 09:00 11/21/19 08:11 Folic Acid PO 1 mg DAILY HUBERT Administration Lisinopril 20 mg 11/13/19 09:00 11/21/19 08:11 Prinivil PO 20 mg DAILY HUBERT Administration Methocarbamol 500 mg 11/12/19 17:16 Robaxin PO BID PRN Muscle Spasm Multivitamins/Calcium 1 tablet 11/13/19 09:00 11/21/19 08:11 Therapeutic Multivitamins/Minerals PO 1 tablet DAILY HUBERT Administration Nicotine 1 patch 11/13/19 09:00 11/21/19 08:10 Nicoderm Cq 21 Mg TRANSDERM 1 patch DAILY HUBERT Administration Polyethylene Glycol 17 gm
--- NOTE | 2019-11-24 12:22 | PM.DS ---
DS: Diagnosis Admitting Diagnosis Admitting Diagnosis: Gangrene, not elsewhere classified Discharge Diagnosis (1) Alcoholism: Code(s): F10.20 - Alcohol dependence, uncomplicated Status: Acute (2) Hyponatremia: Code(s): E87.1 - Hypo-osmolality and hyponatremia Status: Acute (3) Peripheral neuropathy: Code(s): G62.9 - Polyneuropathy, unspecified Status: Acute (4) Peripheral arterial disease: Code(s): I73.9 - Peripheral vascular disease, unspecified Status: Acute (5) Above knee amputation of right lower extremity: Code(s): S78.111A - Complete traumatic amputation at level between right hip and knee, initial encounter Status: Acute DS: Summary Hospital Course Reason for hospitalization: this 53-year-old right-handed gentleman with a past medical history of peripheral arterial disease hypertension and alcohol abuse was admitted to our rehab program after having had a right lower extremity amputation above the knee following gangrene of the right lower extremity he received the medical management of his underlying medical issues counseling about the alcoholism and the hyponatremia he has been having and effect in general of the alcohol on is central and peripheral nervous system Hospital Course: He was able to achieve the following will diminish measures at the time of discharge eating independent oral hygiene independent toileting independent bearing independent upper body dressing independent lower body dressing independent foot fair independent willing in bed independent acid to sitting to stop lying independent lying to sitting independent [id number] independent chair transfers) PERRLA transfers and patent car transfers independent walking 10 feet supervision walking 50 feet with 2 turns supervision walking 150 feet supervision walking 10 feet uneven surfaces supervision car per step supervision for staff supervision 12 stressed patient was unable to do picking up objects independent wheelchair 50 feet independent wheelchair and 50 feet independent there were no falls recorded the patient was sent home in good condition Time Spent with Patient Time attestation: Total time spent providing and/or coordinating discharge services: Exam Const: General: comfortable and no acute distress HENMT: General nose exam: Normal nares present Mouth: Yes moist mucous membranes Eyes: General: appearance normal, both eyes and all related structures Neck: Neck: supple and no JVD Resp: Effort & Inspection: normal respiratory effort Auscultation: clear to auscultation bilaterally Cardio: Rate: regular rate Rhythm: regular rhythm GI: GI Palp: Yes Soft to palpation Auscultation: normal bowel sounds Skin: General skin exam: normal color and no rashes or lesions noted Neuro: Other: evidence of peripheral neuropathy peripheral vascular disease otherwise nonfocal neurological examination Extrem: Other: right above the knee amputation clean DS: Data Data Completed and Pending Completed studies during hospitalization: the white count is 8200 hemoglobin of 11.2 hematocrit 33.8 and platelet count of 6 and 57,000 Discharge Plan Discharge Attending physician on discharge: Milton Contreras Discharging Clinician: Milton Contreras Anticipated Discharge Date/Time: 11/21/19 13:00 Patient Disposition: Home, Self-Care Activity: may shower and no driving Diet: as tolerated Wound Care Instructions: follow printed instructions Discharge Instructions: patient to refrain from alcohol and to cut down his drinking habits drastically seek advise from the primary care physician to help in that aspect Follow-up with the surgeon follow-up with the primary care physician and or any other physician involved with his care in the past Patient Instructions: Antibiotic Form, How to Stop Smoking (DC), Pain Management (ED) Stand Alone Forms: General Discharge Information Follow-up/Referrals
== END 2019-11-21 14:20 | disposition home or self-care (01) | DRG 560 ==
PROVIDERS: Psychiatry & Neurology Neurology; Admitting Provider Psychiatry & Neurology Neurology; PCP Internal Medicine; Visit Provider Psychiatry & Neurology Neurology
DX: Z47.81 Encounter for orthopedic aftercare following surgical amputation (principal); E87.1 Hypo-osmolality and hyponatremia; Z89.611 Acquired absence of right leg above knee; F17.210 Nicotine dependence, cigarettes, uncomplicated; F10.20 Alcohol dependence, uncomplicated; G62.9 Polyneuropathy, unspecified; I73.9 Peripheral vascular disease, unspecified; I10 Essential (primary) hypertension
CPT/HCPCS: 36415; 80048; 85025; 87081; 97110; 97116; 97150; 97162; 97165; 97530; 97535; A9270; J1650

== ENCOUNTER 2020-05-28 10:18 | Outpatient (CLI) | payer MEDICAID, SELFPAY ==
--- NOTE | ~2020-05-28 | XR_ITS ---
XR chest 2V DATE: 05/28/2020 10:39 INDICATION: Lung mass. Smoker. TECHNIQUE: 2 views COMPARISON: 10/07/2019 PA and lateral chest FINDINGS: Posterior right lower chest pleural-based opacity is diminished considerably in size compar ed to 10/07/2019. Vague asymmetric increased right perihilar density remains. There are some vertical ly oriented discoid densities overlying the right lower lung, which may represent discoid atelectasis or scarring. Chronic minimal blunting of the right costophrenic angle, stable since 10/07/2019. No left pleural ef fusion. The left lung appears clear. Normal heart size. Minimal bilateral apical capping. IMPRESSION: Considerably diminished or resolved posterior right pleura-based opacity since 10/07/2019 ; mild residual ill-defined density overlying the right perihilar area and discoid atelectasis or sca rring in the right lower lung Reviewed, dictated and finalized at location A. IMPRESSION: Considerably diminished or resolved posterior right pleura-based op acity since 10/07/2019; mild residual ill-defined density overlying the right p erihilar area and discoid atelectasis or scarring in the right lower lung
== END 2020-05-28 10:19 | disposition home or self-care (01) ==
PROVIDERS: PCP Internal Medicine; Visit Provider Internal Medicine
DX: R91.8 Other nonspecific abnormal finding of lung field (principal)
CPT/HCPCS: 71046

== ENCOUNTER 2020-07-10 08:20 | Outpatient (CLI) | payer MEDICAID, SELFPAY ==
--- NOTE | ~2020-07-10 | CT_ITS ---
EXAMINATION: CT chest w con EXAM DATE: 07/10/2020 09:03 INDICATION: Abnormal chest x-ray one week ago. TECHNIQUE: Spiral CT of the chest following intravenous injection of 75 mL Omnipaque 350. Axial, cor onal and sagittal images were reviewed. Coronal maximum intensity pixel images of chest reviewed. T jonathan dose-length product (DLP) for this examination was 482.30 mGy-cm. The exposure was tailored accor ding to patient size (auto mA exposure control), and iterative reconstruction (ASIR) was used as pretty tional dose reduction technique. Comparison is made to prior examination from 05/28/2020. FINDINGS: Scattered right lower lobe posterior linear opacities with more focal pleural-based region measuring 2.2 cm, also having pain calcifications, most likely region of round atelectasis given the volume loss. No suspicious pulmonary opacities. There are no pleural or pericardial effusions. Tr acheobronchial tree is patent. There is no mediastinal, hilar or axillary lymphadenopathy. There is no pneumothorax. Heart normal in size. There is mild to moderate coronary arterial calcificati on, arterial sclerosis. Upper abdomen is unremarkable. There is mild thoracic spondylosis without osteoblastic or osteolytic lesions identified. IMPRESSION: 1. Right lower lobe opacities consistent with round atelectasis. Reviewed, dictated and finalized at location B.
== END 2020-07-10 08:21 | disposition home or self-care (01) ==
LOC: CHSIMG 08:21
PROVIDERS: PCP Internal Medicine; Visit Provider Internal Medicine
DX: R91.8 Other nonspecific abnormal finding of lung field (principal)
CPT/HCPCS: 71260; Q9965

== ENCOUNTER 2020-07-10 15:53 | Outpatient (RCR) | payer MEDICAID, SELFPAY ==
--- NOTE | 2020-07-13 08:36 | PTOPEVAL ---
Thank you for referring Jimbo Osborn to [facility].? The patient is scheduled to be seen for therapy? __3__x/week for 12 visits. Please review, sign, date and return this plan of care JHON. I agree with and certify that the following plan of care is medically necessary. Referring Physician Date Admitting Provider: Attending Provider: Jose Angel Johnson MD Referring Provider: *PT Outpatient Evaluation Start: 07/10/20 16:01 Freq: Status: Active Protocol: Document 07/10/20 16:02 ADEN (Rec: 07/10/20 16:57 ADEN [id number]) Outpatient Past Medical History Neurological History Hx Neurological Disorders No Significant History Cardiovascular History Hx Peripheral Vascular Disease Yes Respiratory History Hx Respiratory Disorders No Significant History Gastrointestinal History Hx Gastrointestinal Disorders No Significant History Genitourinary History Hx Genitourinary Disorders No Significant History Musculoskeletal History Hx Amputation Yes: R AKA on 11/07/2019 Hematological History Hx Hematological Disorders No Significant History Endocrine History Hx Endocrine Disorders No Significant History HEENT History Hx HEENT Disorders No Significant History Integumentary History Hx Skin Disorders No Significant History Reproductive History Hx Reproductive Disorders No Significant History Psychosocial History Hx Psychiatric Disorders No Significant History Pain History History of Any Previous or Ongoing No Significant History Instance of Pain Anesthesia History Hx Anesthesia Reactions No Significant History Evaluation Information Problem Diagnosis right aka, prosthesis training Onset 10/09/19 Subjective Information Pt. does not recall the exact Query Text:As Reported By Patient/ date of his amputation, but Family believes it was around [place]. He states that he recently recieved his prosthesis which he did walk in briefly after he recieved it. He states that he does have a walker at home. He reports that he is currenlty driving. He states that his goal is to learn how to ambulate without an AD. Prior Level of Function Activity Level (Last 3 Months) Occupation disabled Hand Dominance Right Activity of Daily Living Ability Needs Some Help Indoor/Home Mobility Needs Some Help Community Mobility Independent Stairs Ability Unknown Functional Cognition ([place]
--- NOTE | 2020-08-13 06:55 | PTOPEVAL ---
Thank you for referring Jimbo Osborn to [facility].? The patient is scheduled to be seen for therapy? __1__x/week for _6__ weeks. Please review, sign, date and return this plan of care JHON. I agree with and certify that the following plan of care is medically necessary. Referring Physician Date Admitting Provider: Attending Provider: Jose Angel Johnson MD Referring Provider: *PT Outpatient Evaluation Start: 07/10/20 16:01 Freq: Status: Active Protocol: Document 08/12/20 14:00 ADEN (Rec: 08/13/20 06:48 ADEN [email or web address]) Therapy Assessment Status Assessment Status Assessment Status Evaluation Outpatient Past Medical History Neurological History Hx Neurological Disorders No Significant History Cardiovascular History Hx Peripheral Vascular Disease Yes Respiratory History Hx Respiratory Disorders No Significant History Gastrointestinal History Hx Gastrointestinal Disorders No Significant History Genitourinary History Hx Genitourinary Disorders No Significant History Musculoskeletal History Hx Amputation Yes: R AKA on 11/07/2019 Hematological History Hx Hematological Disorders No Significant History Endocrine History Hx Endocrine Disorders No Significant History HEENT History Hx HEENT Disorders No Significant History Integumentary History Hx Skin Disorders No Significant History Reproductive History Hx Reproductive Disorders No Significant History Psychosocial History Hx Psychiatric Disorders No Significant History Pain History History of Any Previous or Ongoing No Significant History Instance of Pain Anesthesia History Hx Anesthesia Reactions No Significant History Evaluation Information Problem Diagnosis right aka Onset 10/09/19 Subjective Information Pt. reports that he has not Query Text:As Reported By Patient/ been compliant with using his Family brace at home. He reports that he will occassionally accumulate 1 hour of wear time in a day. Pt. states that he feels he gets around more quickly with his wc. He states that he still has a desire to ambulate with his prothesis and realizes that he needs to work harder on developement of a wear schedule. Pain Assessment Self Report Self Report Pain Level 0 Pain Score Pain Score 0: Self Report Lower Extremity Range of Motion General Lower Extremity Range of Motion Gross Lower Extremity Range of Motion Pt. is
== END 2020-10-08 23:59 | disposition home or self-care (01) ==
LOC: CHSPT 15:53
PROVIDERS: PCP Internal Medicine; Visit Provider Internal Medicine
DX: Z89.611 Acquired absence of right leg above knee (principal)
CPT/HCPCS: 71260; 97110; 97116; 97161; 97530; Q9965

== ENCOUNTER 2020-12-11 10:55 | Outpatient (CLI) | payer MEDICAID, SELFPAY ==
--- NOTE | ~2020-12-11 | XR_ITS ---
EXAMINATION: XR chest 2V DATE: 12/11/2020 11:17 INDICATION: Smoker with lung mass. TECHNIQUE: PA and lateral views of the chest were obtained. COMPARISON: Chest radiograph dated dated 05/28/2020 and 10/07/[address] dated 07/10/2020 FINDINGS: Appears to be decreased density in the right infrahilar region relative to the prior study suggesting decrease in size of a prior right lower lobe mass. The mass however was poorly visualized even on th e prior chest radiographs and would recommend chest CT for more accurate assessment for any interval change. Linear discoid atelectasis/scarring in the right lower lobe. Blunting at the right posterior sulcus and costophrenic angle which could be related to pleural parenchymal scarring or residual tiny right pleural effusion. Calcified nodule in the left midlung zone consistent with old granulomatous disease. Unchanged bilateral small nipple shadows projecting between the anterior fifth and sixth rib s. No pneumothorax or left-sided pleural effusion. The cardiomediastinal silhouette is normal. Mild t horacic spondylosis. IMPRESSION: 1. Continued improvement in a pleural-based right lower lobe nodule now essentially indiscernible. Fo r more definitive determination for interval change would consider repeat chest CT. 2. Likely residual tiny right pleural effusion. Reviewed, dictated and finalized at location A. R SUPERVISOR IMPRESSION: 1. Continued improvement in a pleural-based right lower lobe nodule now essenti ally indiscernible. For more definitive determination for interval change would consider repeat chest CT. 2. Likely residual tiny right pleural effusion.
== END 2020-12-11 10:56 | disposition home or self-care (01) ==
LOC: CHSIMG 10:57
PROVIDERS: PCP Internal Medicine; Visit Provider Internal Medicine
DX: R91.8 Other nonspecific abnormal finding of lung field (principal); F17.200 Nicotine dependence, unspecified, uncomplicated
CPT/HCPCS: 71046

== ENCOUNTER 2021-01-20 13:13 | Observation (INO) | payer MEDICAID, SELFPAY ==
[2021-01-20] VITALS (8 sets, daily range): BP systolic 79–99; BP diastolic 51–72; PULSE 78–106; RESP 14–20; TEMP 36.9–37.6; O2SAT 95–98; BMI 29.1
--- NOTE | 2021-01-20 13:52 | ECG_ITS ---
Measurements Intervals [place] Rate: 100 P: 66 UT: 147 QRS: 126 QRSD: 142 T: 18 QT: 394 QTc: 509 Interpretive Statements SINUS TACHYCARDIA FREQUENT VENTRICULAR PREMATURE COMPLEXES RIGHT BUNDLE BRANCH BLOCK LEFT POSTERIOR FASCICULAR BLOCK ABNORMAL ECG Electronically Signed On 01-20-2021 15:11:25 CDT by Myles Bueno D.O.
--- NOTE | 2021-01-20 14:01 | ED.GENADULT ---
HPI - General Adult General Chief complaint: Recheck/Abnormal Lab/Rx Stated complaint: low blood pressure Source: patient Mode of arrival: ambulatory Limitations: no limitations History of Present Illness HPI narrative: Jimbo is a 55M with a PMH of alcoholism, peripheral neuropathy, PAD resulting in a right AKA that presented to the emergency department with hypotension. he was at his ortho surgeons office at [place] when he was found to be hypotensive. He reports that one week ago he felt sick to his stomach and had several episodes of NBNB vomiting. Since that time his throat has been very sore and he has barely been able to eat or drink anything. He admits a burning in his throat but no chest pain. He feels a little lightheaded but has nor passed out. No current SOB or diarrhea. Related Data Home Medications Medication Instructions Recorded Confirmed aspirin [Adult Low Dose Aspirin] 81 mg PO DAILY 01/20/21 01/20/21 Allergies Allergy/AdvReac Type Severity Reaction Status Date / Time No Known Allergies Allergy Verified 10/06/19 18:18 Review of Systems Constitutional: Constitutional: Denies chills, Denies fever(s) and Reports weakness Eyes: Eyes: Reports no additional eye complaints ENT: Reports as per HPI Cardiovascular: Cardiovascular: Reports as per HPI Respiratory: Respiratory: Reports no additional respiratory complaints Gastrointestinal: Gastrointestinal: Reports as per HPI Genitourinary: Genitourinary: Reports no additional male genitourinary complaints Musculoskeletal: Musculoskeletal: Reports no additional musculoskeletal complaints Integumentary/Breasts: Skin/Breast: Reports system reviewed and no additional complaints, except as docu Neurologic: Reports system reviewed and no additional complaints, except as documented Psychiatric: Psychiatric: Reports no additional psychiatric complaints Endocrine: Endocrine: Reports no additional endocrine complaints Hematologic/Lymphatic: Hematologic/Lymphatic: Reports no additional hematologic/lymphatic complaints Allergic/Immunologic: Allergic/Immunologic: Reports no additional allergic/immunologic complaints PENDING SALE TO [facility] Past Medical History Medical History Alcoholism No active medical problems Peripheral arterial disease Peripheral neuropathy Family History Family History Sibling Skin cancer Father Diabetes mellitus Mother Hypertension Social History Social History Smoking packs per day: 2 Smoking cigarettes per day: 40.0 Years smoked: 40 Smoking pack-years: 80.00 Smoking status: Current every day smoker Tobacco type: cigarettes Second hand tobacco smoke exposure: Yes Alcohol intake: current Drinks per week: 2 Substance use: never Gender identity (if verbalized by the patient): Male Spiritual care concerns: No Agree to blood products: Yes Exam Const: General: no acute distress and alert; No confusion Orientation/consciousness: patient oriented x3 Limitations: No altered mental status HENMT: Head: normal to inspection Other: Dry mucous membranes Eyes: Conjunctivae: conjunctivae normal Pupils: Equal, round and reactive pupils present Neck: Neck: normal visual inspection Chest: Chest palpation & inspection: normal inspection of the chest Resp: Effort & Inspection: normal respiratory effort Auscultation: clear to auscultation bilaterally Cardio: Rate: regular rate Rhythm: regular rhythm Heart sounds: no murmurs GI: Inspection: non-distended GI Palp: Yes Soft to palpation, No Tenderness to palpation present (GI) and No Guarding due to palpation present (GI) Skin: General skin exam: normal color and no jaundice Rashes: no rashes Neuro: General: patient oriented x3 and moves all extremities Extrem: General: normal to inspection Psyc
[2021-01-20 14:19] LABS: Basophils Absolute Auto 0.03 K/mm3 (0.00-0.10); Basophils Percent Auto 0.2 % (0.0-1.0); Eosinophils Absolute Auto 0.12 K/mm3 (0.02-0.50); Hematocrit 52.4 % (40.0-54.0); Hemoglobin 18.2 g/dL (14.0-18.0); Immature Granulocyte Absolute 0.09 K/mm3 (0.00-0.00); Immature Granulocyte Percent A 0.7 % (0.0-0.0); Lymphocytes Absolute Auto 2.14 K/mm3 (1.10-4.50); Lymphocytes Percent Auto 17.4 % (18.0-42.0); Mean Corpuscular HGB Conc 34.7 g/dL (32.0-36.0); Mean Corpuscular Hemoglobin 32.7 pg (27.0-31.0); Mean Corpuscular Volume 94.2 fL (78.0-102.0); Mean Platelet Volume 8.8 fl (8.7-11.0); Monocytes Absolute Auto 1.46 K/mm3 (0.10-0.90); Monocytes Percent Auto 11.9 % (2.0-11.0); Neutrophils Absolute Auto 8.5 K/mm3 (1.7-7.2); Neutrophils Percent Auto 68.8 % (50.0-70.0); Platelet Count Result 446 K/mm3 (150-420); Red Blood Count 5.56 M/mm3 (4.70-6.10); Red Cell Distribution Width 14.6 % (11.6-14.4); White Blood Count 12.3 K/mm3 (4.8-10.8)
[2021-01-20 14:35] LABS: Lactic Acid Reflex 1.1 mmol/L (0.4-2.0)
[2021-01-20 14:43] LABS: Alanine Aminotransferase 37 U/L (16-63); Albumin Level 3.1 g/dL (3.4-5.0); Alkaline Phosphatase 118 U/L (46-116); Anion Gap 6 mmol/L (8-16); Aspartate Amino Transferase 19 U/L (15-37); BNP 30.6 pg/mL (0-100); Bilirubin,Total 0.6 mg/dL (0.00-1.00); Blood Urea Nitrogen 81 mg/dL (7-18); Calcium 9.1 mg/dL (8.5-10.1); Carbon Dioxide 31 mmol/L (21-32); Chloride 90 mmol/L (98-108); Estimated CRCL calculation 26 ml/min; Estimated Glomerular Filt Rate 24; Glucose 99 mg/dL (70-99); Lipase 310 U/L (73-393); Osmolality Calculated 288 mOsm/kg (285-295); Potassium 3.3 mmol/L (3.5-5.1); Sodium 127 mmol/L (136-145); Total Protein 7.5 g/dL (6.4-8.2); Troponin I 10.6 ng/L (0.00-60.4)
[2021-01-20 14:44] LABS: Thyroid Stimulating Hormone 1.18 uIU/mL (0.36-3.74)
[2021-01-20] MEDS: SODIUM CHLORIDE 0.9% IV 1,000 ML 999 ML IV CONT ×2 (15:00→15:51)
--- NOTE | 2021-01-20 15:11 | PC.NURSE ---
1510 LUIS, ACID MAKER, CONTACTED FOR OBS ROOM. ROOM 227 PROVIDED. REGISTRATION NOTIFIED.
--- NOTE | 2021-01-20 16:23 | ADMGEN ---
This patient, Jimbo Osborn, was admitted to 2nd Floor Room 227-2 under observation status. Patient oriented to hospital policies and general routines including ID bracelet, bed and alarms, visiting hours, pain management, procedures, bathroom and other care routines, personal items, smoking policy, room service/diet, and visiting hours. Information on how to activate the Rapid Response Team has been discussed. Patient encouraged to report perceived risks to care and to ask questions if they do not understand what they are told or what they should do.
--- NOTE | 2021-01-20 16:40 | PC.NURSE ---
fluids infused, 3rd bag of normal saline started and rate to 100 ml an hour at this time, tolerating po fluids. telemetry noted to be SR with frequent PVCs and runs of trigeminy at times
[2021-01-20] MEDS: SODIUM CHLORIDE 0.9% IV 1,000 ML 100 ML IV CONT (16:43)
--- NOTE | 2021-01-20 16:50 | PC.NURSE ---
here and brought HPOA papers and copy placed on chart
--- NOTE | 2021-01-20 18:00 | PC.NURSE ---
ate fair for dinner, no further complaint of pain in throat, ate hot dog, sipping on soda and tea no distress noted, fluids infusing
[2021-01-20 21:18] LABS: Chloride 94 mmol/L (98-108); Estimated CRCL calculation 49 ml/min; Estimated Glomerular Filt Rate 40; Glucose 121 mg/dL (70-99); Sodium 129 mmol/L (136-145)
[2021-01-20 21:19] LABS: Anion Gap 9 mmol/L (8-16); Blood Urea Nitrogen 67 mg/dL (7-18); Calcium 8.1 mg/dL (8.5-10.1); Carbon Dioxide 26 mmol/L (21-32); Osmolality Calculated 288 mOsm/kg (285-295)
--- NOTE | 2021-01-20 23:48 | PC.NURSE ---
Called [facility] pharmacy regarding order clarification for medication. Order clarified and Dr. Reddy notified of pharmacy's recommendation. No new orders at this time.
[2021-01-21] VITALS: BP 84/45; PULSE 72; RESP 20; TEMP 37; O2SAT 92
[2021-01-21 00:17] LABS: Add Urine Microscopic? NO; Appearance Urine Clear (Clear); Bilirubin Urine Negative (Negative); Blood Urine Negative (Negative); Color Urine Yellow (Yellow); Glucose Urine UA Negative (Negative); Ketones Urine Negative (Negative); Leukocyte Esterase Ur Negative (Negative); Nitrate Urine Negative (Negative); Protein Urine Negative (Negative); Specific Grav Ur 1.015 (1.010-1.020); Urobilinogen Urine 0.2 mg/dL (0.2-1.0)
[2021-01-21] MEDS: SODIUM CHLORIDE 0.9% IV 1,000 ML 100 ML IV CONT (02:46)
[2021-01-21 04:00] VITALS: BP 110/66; PULSE 76; RESP 16; TEMP 36.3; O2SAT 96
[2021-01-21 05:20] LABS: Anion Gap 3 mmol/L (8-16); Blood Urea Nitrogen 52 mg/dL (7-18); Calcium 8.2 mg/dL (8.5-10.1); Carbon Dioxide 31 mmol/L (21-32); Chloride 97 mmol/L (98-108); Estimated CRCL calculation 60 ml/min; Estimated Glomerular Filt Rate 51; Glucose 109 mg/dL (70-99); Osmolality Calculated 287 mOsm/kg (285-295); Potassium 3.1 mmol/L (3.5-5.1); Sodium 131 mmol/L (136-145)
[2021-01-21 08:00] VITALS: BP 114/60; PULSE 78; RESP 18; TEMP 36.3; O2SAT 97
[2021-01-21] MEDS: FOLIC ACID 1 MG TABLET PO (08:16)
[2021-01-21] MEDS: POTASSIUM CHLORIDE 20 MEQ TABLET 40 MEQ PO (08:16)
[2021-01-21] MEDS: ENOXAPARIN 40 MG/0.4 ML SYRINGE SUB-Q (08:16)
[2021-01-21] MEDS: ASPIRIN 81 MG CHEWABLE TABLET PO (08:16)
[2021-01-21] MEDS: PANTOPRAZOLE 40 MG TABLET PO (08:16)
[2021-01-21] MEDS: THIAMINE HCL 100 MG TABLET PO (08:16)
--- NOTE | 2021-01-21 08:49 | PC.NURSE ---
fluids discontinued at this time, denies needs, swallowing is better today, awaiting discharge orders
--- NOTE | 2021-01-21 11:04 | PM.SD2 ---
Same Day Admit/Disch: HPI History of Present Illness Chief complaint: hypotension acute dehydration Narrative: Jimbo Osborn is a 55 year old male who presented to our ED with hypotension. Patient has a past medical history of alcoholism, peripheral neuropathy, PAD, right AKA. According to patient he went to his orthopedic surgeon's office and was found to be hypotensive. Approximately 1 week ago patient had experienced nausea and vomiting. Patient was unsure what caused the nausea. Patient noted that as a result of his nausea and vomiting his intake did decrease. He also has a sore throat from the excessive vomiting. On admission patient's blood pressure was in the 80s over 40s in the ED he received 2 L nasal cannula then 100 mils per hour and was given Protonix. Patient WBCs slightly elevated at 12.3, sodium 127, potassium 3.3, BUN 18, creatinine 2.80, chest x-ray tiny right pleural effusion with right lower lobe nodule, sinus tach with a heart rate of 100 .patient notes that his condition has much improved and he is ready for discharge. The patient denies SOB, CP, palpitation, extremity numbness, lightheadedness, dizziness, constipation, diarrhea, chills, or fever. Patient notes that his throat remains sore possibly excessive vomiting but he is able to eat and drink. [facility] Past Medical History Medical History Alcoholism No active medical problems Peripheral arterial disease Peripheral neuropathy Family History Family History Sibling Skin cancer Father Diabetes mellitus Mother Hypertension Social History Social History Smoking packs per day: 2 Smoking cigarettes per day: 40.0 Years smoked: 40 Smoking pack-years: 80.00 Smoking status: Current every day smoker Tobacco type: cigarettes Second hand tobacco smoke exposure: Yes Alcohol intake: current Drinks per week: 2 Substance use: never Gender identity (if verbalized by the patient): Male Spiritual care concerns: No Agree to blood products: Yes Same Day Admit/Disch: Med Pre-admit Medications Home Medications Medication Instructions Recorded Confirmed Type lisinopril 20 mg PO DAILY #30 tablet 11/20/19 01/20/21 Rx aspirin 81 mg PO DAILY 01/20/21 01/20/21 History folic acid 1 mg PO DAILY #30 tablet 01/21/21 Rx ondansetron HCl [Zofran] 4 mg PO Q8H PRN #30 tablet 01/21/21 Rx pantoprazole 40 mg PO QAM #30 tablet 01/21/21 Rx thiamine HCl (vitamin B1) [Vitamin 100 mg PO QAM #30 tablet 01/21/21 Rx B-1] Exam Narrative: Exam Narrative: GENERAL: This is a well-nourished, well-developed patient, in no apparent distress. HEAD: normocephalic, atraumatic. EYES: PERRL. Sclera clear/white. Vision is grossly intact. EARS: External ears normal, auditory canals clear and without drainage, TMs normal without perforation. Hearing grossly intact. NOSE: External nose normal with no obvious nasal discharge, nares without redness, no rhinorrhea. THROAT: Mucous membranes moist, posterior pharynx clear. NECK: Neck supple, non-tender without lymphadenopathy, masses or thyromegaly. CARDIOVASCULAR: Regular rate and rhythm without murmurs, gallops, or rubs. RESPIRATORY: Clear to auscultation. Breath sounds equal bilaterally. No wheezes, rales, or rhonchi. GASTROINTESTINAL: Abdomen soft, non-tender, nondistended. Bowel sounds are active. No hepato-splenomegaly, or palpable masses. No guarding. SKIN: warm, intact with no suspicious lesions or rash, good texture and turgor. NEURO: awake, alert, and oriented to person, place and time. There were no obvious focal neurologic abnormalities. Steady gait EXTREMITIES: Normal range of motion. No edema. No calf tenderness. Negative Homans sign bilaterally. Right AKA BACK: Nontender without deformity or crepitance. No flank tenderness. DS: Data Data
--- NOTE | 2021-01-21 11:55 | PC.NURSE ---
1130 patient vocalizes understanding to dc instructions to home and follow up.. in [place] waiting for to pick up attendant. left in [place] on his own accord.
--- NOTE | 2021-01-25 11:07 | PC.NURSE ---
Pt states he received and understood his discharge instructions. Pt has no other comments.
== END 2021-01-21 11:30 | disposition home or self-care (01) ==
LOC: CHSED 13:16 → CHS2ND 15:14
PROVIDERS: Admitting Provider Family Medicine; Emergency Provider Family Medicine; PCP Internal Medicine; Visit Provider Family Medicine
DX: E86.0 Dehydration (principal); N17.9 Acute kidney failure, unspecified; I95.9 Hypotension, unspecified; E87.1 Hypo-osmolality and hyponatremia; I73.9 Peripheral vascular disease, unspecified; K21.9 Gastro-esophageal reflux disease without esophagitis; G62.9 Polyneuropathy, unspecified; F17.210 Nicotine dependence, cigarettes, uncomplicated; F10.20 Alcohol dependence, uncomplicated; Z89.611 Acquired absence of right leg above knee
CPT/HCPCS: 36415; 80048; 80053; 81003; 83605; 83690; 83880; 84443; 84484; 85025; 85610; 93005; 96360; 96361; 96372; 99285; A9270; G0378; G0379; J1650; J7030

== ENCOUNTER → 2021-02-16 02:00 | Outpatient (CLI) | payer MEDICAID, SELFPAY ==
[2021-02-16 19:23] LABS: SARS-CoV-2 RNA PCR Negative
== END ==
PROVIDERS: PCP Internal Medicine; Visit Provider Surgery
DX: Z01.812 Encounter for preprocedural laboratory examination (principal); Z20.822 Contact with and (suspected) exposure to COVID-19
CPT/HCPCS: C9803; U0003; U0005

== ENCOUNTER 2021-02-19 01:00 | Day surgery (SDC) | payer MEDICAID, SELFPAY ==
[2021-02-09 14:39] VITALS: BMI 20.3
[2021-02-19 11:34] VITALS: BP 119/65; PULSE 85; RESP 17; TEMP 36.3; O2SAT 98; BMI 28.7
[2021-02-19] MEDS: LACTATED RINGERS 1,000 ML 150 ML IV CONT (11:44)
--- NOTE | 2021-02-19 12:25 | WPDHPUPDATE1 ---
History and Physical Update Update Date/Time: 02/19/21 12:25 History and Physical has been reviewed, including an updated exam of the patient. There are NO changes in the patient's condition. Risks, benefits, and alternatives have been discussed and questions answered. Patient agrees to proceed with procedure.
--- NOTE | 2021-02-19 12:25 | PM.HPGS ---
History of Present Illness History of Present Illness Consent: Risks, benefits, and alternatives of an EGD have been discussed and questions answered. Patient agrees to proceed with procedure. Chief complaint: dysphagia Narrative: Jimbo Osborn is a 55 year old male who recently presented to the [facility] ED with hypotension. patient subsequently had a follow-up visit with Dr. Cornell his PCP. He has been on pantoprazole. However still having some difficulties swallowing and pain after swallowing. Patient has a past medical history of alcoholism, peripheral neuropathy, PAD, right AKA. Approximately 1 week ago patient had experienced nausea and vomiting. Patient was unsure what caused the nausea. Patient noted that as a result of his nausea and vomiting his intake did decrease. At his recent hospitalization in [place] last month patient's WBCs slightly elevated at 12.3, sodium 127, potassium 3.3, BUN 18, creatinine 2.80, chest x-ray tiny right pleural effusion with right lower lobe nodule, sinus tach with a heart rate of 100 . Ppatient notes that his condition has much improved and he was dichared, but still is having occasional dysphagia. The patient denies SOB, CP, palpitation, extremity numbness, lightheadedness, dizziness, constipation, diarrhea, chills, or fever. Patient notes that his throat Is no longer sore and he is able to eat and drink without difficulty now. he has still been on the daily Protonix 40 mg in the morning. He feels that this probably did help him. He is willing to continue taking if I believe he needs to. He states that he has run out of all his medications except perhaps his lisinopril blood pressure pill. Review of Systems Constitutional: Constitutional: Reports no additional constitutional complaints, Reports fatigue and Denies malaise Eyes: Eyes: Denies change in vision and Denies loss of vision ENT: Reports Normal hearing present, Denies change in voice, Denies dizziness, Denies hoarseness and Denies sore throat Cardiovascular: Cardiovascular: Denies chest pain, Denies leg edema and Denies dyspnea Respiratory: Respiratory: Denies cough, Denies dyspnea and Denies wheezing Gastrointestinal: Gastrointestinal: Denies hematochezia, Denies change in bowel habits and Denies heartburn Genitourinary: Genitourinary: Denies urinary frequency and Denies urinary incontinence Neurologic: Reports Normal hearing present, Denies confusion, Denies dizziness, Denies loss of vision, Denies memory loss and Denies seizure-like activity Psychiatric: Psychiatric: Denies confusion, Denies depression and Denies memory loss Endocrine: Endocrine: Denies cold intolerance and Reports fatigue Hematologic/Lymphatic: Hematologic/Lymphatic: Denies easy bleeding and Denies easy bruising Allergic/Immunologic: Allergic/Immunologic: Denies wheezing PMFSH Past Medical History Medical History Alcoholism Chronic GERD Lung mass Peripheral arterial disease Peripheral neuropathy Family History Family History Sibling Skin cancer Father Diabetes mellitus Mother Hypertension Social History Social History Smoking packs per day: 2 Smoking cigarettes per day: 40.0 Years smoked: 40 Smoking pack-years: 80.00 Smoking status: Current every day smoker Tobacco type: cigarettes Second hand tobacco smoke exposure: Yes Alcohol intake: current Drinks per week: 2 Substance use: never Substance use type: does not use Living arrangements: with family Gender identity (if verbalized by the patient): Male Sexual Orientation (if Verbalized by the Patient): Straight or Heterosexual Spiritual care concerns: No Agree to blood products: Yes Meds Home Medications and Allergies Home Medications Medication Instructions
--- NOTE | 2021-02-19 12:49 | WPDANESEPPF ---
Anes - Initial Pre Proc Eval Procedure: Operation Date: 02/19/21 12:00 Proposed Procedures p Esophagogastroduodenoscopy - Chris Fitzpatrick MD Date/Time: 02/19/21 12:49 Surgeon: Chris Fitzpatrick MD Pre Op Diagnosis: dysphagia Patient Data Age: 55 Gender: M Height: 6 ft 2 in Weight: 101.4 kg Last Vital Signs Temp 36.3 C L 02/19/21 11:34 Pulse 85 02/19/21 11:34 Resp 17 02/19/21 11:34 BP 119/65 02/19/21 11:34 Pulse Ox 98 02/19/21 11:34 Allergies Allergy/AdvReac Type Severity Reaction Status Date / Time No Known Allergies Allergy Verified 02/09/21 14:37 Home Medications Medication Instructions Recorded Confirmed Type lisinopril 20 mg PO DAILY #30 tablet 11/20/19 02/09/21 Rx aspirin 81 mg PO DAILY 01/20/21 02/09/21 History folic acid 1 mg PO DAILY #30 tablet 01/21/21 02/09/21 Rx ondansetron HCl [Zofran] 4 mg PO Q8H PRN #30 tablet 01/21/21 Rx pantoprazole 40 mg PO QAM #30 tablet 01/21/21 02/09/21 Rx thiamine HCl (vitamin B1) [Vitamin 100 mg PO QAM #30 tablet 01/21/21 02/09/21 Rx B-1] Patient hx anesthesia problems: none Family hx anesthesia problems: none PMFSH Past Medical History Medical History Alcoholism Chronic GERD Lung mass Peripheral arterial disease Peripheral neuropathy Family History Family History Sibling Skin cancer Father Diabetes mellitus Mother Hypertension Social History Social History Smoking packs per day: 2 Smoking cigarettes per day: 40.0 Years smoked: 40 Smoking pack-years: 80.00 Smoking status: Current every day smoker Tobacco type: cigarettes Second hand tobacco smoke exposure: Yes Alcohol intake: current Drinks per week: 2 Substance use: never Substance use type: does not use Living arrangements: with family Gender identity (if verbalized by the patient): Male Sexual Orientation (if Verbalized by the Patient): Straight or Heterosexual Spiritual care concerns: No Agree to blood products: Yes Anes - Eval Final PreProcedure Day of Procedure 02/19/21 12:49 Patient weight: obese Heart: regular rate and rhythm Lungs: decreased breath sounds Airway: Mallampati scale class II Neurological: alert and oriented Last oral intake: >/= 8 hours ASA classification: III Emergent: no Anesthetic plan: proceed Anesthesia type and monitoring: general GIVS and standard monitoring Informed Consent: The patient's anesthetic plan and its attendant risks and benefits were discussed with the patient/family/POA. Questions were solicited and answers provided to the satisfaction of the patient/family/POA.
[2021-02-19] MEDS: BENZOCAINE (*SP) 60 ML SPRAY CAN (HURRICAINE) 1 SPRAY MUCOUS MEM (12:59)
[2021-02-19 13:22] VITALS: BP 109/74; PULSE 80; RESP 24; O2SAT 96
[2021-02-19 13:32] VITALS: BP 112/77; PULSE 74; RESP 20; O2SAT 98
[2021-02-19 13:42] VITALS: BP 123/81; PULSE 70; RESP 17; O2SAT 99
== END 2021-02-19 13:50 | disposition home or self-care (01) ==
PROVIDERS: PCP Internal Medicine; Visit Provider Surgery
PROC: 0DJ08ZZ Inspection of Upper Intestinal Tract, Via Natural or Artificial Opening Endoscopic (ICD-10-PCS; CPT 43235; principal; 2021-02-19 12:00)
DX: K21.9 Gastro-esophageal reflux disease without esophagitis (principal); K22.10 Ulcer of esophagus without bleeding; I49.3 Ventricular premature depolarization; G62.9 Polyneuropathy, unspecified; F17.210 Nicotine dependence, cigarettes, uncomplicated; E66.9 Obesity, unspecified; Z68.28 Body mass index [BMI] 28.0-28.9, adult
CPT/HCPCS: 43239; 87081; 88305; J2704; J7120

== ENCOUNTER 2021-06-09 08:35 | Outpatient (CLI) | payer MEDICAID, SELFPAY ==
--- NOTE | ~2021-06-09 | XR_ITS ---
EXAMINATION: XR chest 2V DATE: 06/09/2021 08:54 INDICATION: Lung nodule. TECHNIQUE: Frontal and lateral views of the chest were obtained. COMPARISON: Chest 2 views 12/11/2020, chest CT 07/10/2020 FINDINGS: There are lucencies in the lungs, consistent with emphysema. There are mild airspace opacit ies in right lower lobe. No pleural effusion or pneumothorax. The heart size is normal. IMPRESSION: 1. Stable mild airspace opacities in right lower lobe, likely scarring. 2. Emphysema. Reviewed, dictated and finalized at location A.
== END 2021-06-09 08:36 | disposition home or self-care (01) ==
LOC: CHSIMG 08:37
PROVIDERS: PCP Internal Medicine; Visit Provider Internal Medicine
DX: R91.8 Other nonspecific abnormal finding of lung field (principal)
CPT/HCPCS: 71046

== ENCOUNTER 2022-02-06 12:37 | Emergency (ER) | payer BC, SELFPAY ==
--- NOTE | ~2022-02-06 | US_ITS ---
EXAMINATION: US arterial duplex LE DATE: 02/06/2022 14:53 INDICATION: Left lower leg pain and swelling TECHNIQUE: Segmental pressures and plethysmographic and Doppler waveforms of the brachial and lower e xtremity arteries were obtained. COMPARISON: None. FINDINGS: There is arterial flow throughout the visualized left lower extremity. Arterial Doppler waveforms are biphasic to the level of the knee and monophasic beyond the knee. The left peroneal artery is not de monstrated. IMPRESSION: 1. Nonvisualization of the left peroneal artery, otherwise patent left lower extremity arteries. Reviewed, dictated and finalized at location F. IMPRESSION: 1. Nonvisualization of the left peroneal artery, otherwise patent left lower ex tremity arteries.
--- NOTE | ~2022-02-06 | US_ITS ---
EXAMINATION: US venous doppler [facility] DATE: 02/06/2022 14:47 INDICATION: Left lower limb pain and swelling TECHNIQUE: Burris scale images without and with compression and Doppler images of the left lower extrem ity veins were obtained. COMPARISON: None FINDINGS: The left common femoral vein, profunda femoral vein, femoral vein, popliteal vein, posterio r tibial veins, and greater saphenous vein are patent. The peroneal veins are not visualized. IMPRESSION: 1. Patent left lower extremity veins. No evidence of deep venous thrombosis. Peroneal veins not visua lized. Reviewed, dictated and finalized at location F. IMPRESSION: 1. Patent left lower extremity veins. No evidence of deep venous thrombosis. Pe roneal veins not visualized.
[2022-02-06 12:39] VITALS: BP 115/61; PULSE 110; RESP 18; TEMP 36.2; O2SAT 100
--- NOTE | 2022-02-06 12:56 | ED.EXTPRO ---
HPI - Extremity Problem General Chief complaint: Extremity Problem,Nontraumatic Stated complaint: L leg swelling Time Seen by Provider: 02/06/22 12:49 Source: patient Mode of arrival: ambulatory Limitations: no limitations History of Present Illness HPI Narrative: Patient is a 56-year-old male complaining of left lower extremity pain and swelling that started 4 to 5 days ago, I think I have a blood clot . Patient states that he has a history of blood clot, on his right lower extremity and that was the reason of his amputation, I waited too long . Patient denies being on any oral anticoagulants. Patient denies any chest pain, shortness of breath, fever or chills. Patient denies any injury to the area. Related Data Home Medications Medication Instructions Recorded Confirmed aspirin 81 mg PO DAILY 01/20/21 11/09/21 cetirizine 10 mg tablet 10 mg PO DAILY PRN 09/01/21 11/09/21 Allergies Allergy/AdvReac Type Severity Reaction Status Date / Time No Known Allergies Allergy Verified 11/09/21 13:41 Review of Systems Review of Systems: All systems reviewed & are unremarkable except as noted in HPI and below Constitutional: Constitutional: Denies body ache(s), Denies chills, Denies excessive sweating, Denies fatigue, Denies fever(s), Denies headache(s), Denies lethargy, Denies malaise, Denies weakness and Denies weight loss Eyes: Eyes: Denies blurry vision, Denies change in vision and Denies loss of vision ENT: Denies dizziness, Denies ear discharge, Denies headache(s), Denies lip swelling, Denies epistaxis, Denies nasal congestion, Denies neck pain, Denies throat swelling and Denies tongue swelling Cardiovascular: Cardiovascular: Denies chest pain, Denies chest pain at rest, Denies chest pain with activity, Denies diaphoresis, Denies rapid heart rate, Denies edema, Denies irregular heart rhythm, Denies lightheadedness, Denies palpitations, Denies dyspnea and Denies dyspnea on exertion Respiratory: Respiratory: Denies chest congestion, Denies cough, Denies hemoptysis, Denies dyspnea and Denies dyspnea on exertion Gastrointestinal: Gastrointestinal: Denies abdominal pain, Denies melena, Denies hematochezia, Denies diarrhea, Denies nausea, Denies vomiting and Denies hematemesis Musculoskeletal: Musculoskeletal: Denies abnormal gait, Denies deformity, Denies joint swelling, Denies limited range of motion, Denies neck pain and Denies numbness Neurologic: Denies Abnormal speech present, Denies abnormal gait, Denies confusion, Denies dizziness, Denies headache(s), Denies focal weakness, Denies loss of vision, Denies numbness, Denies Other visual disturbances, Denies Sensory deficit (Neuro) and Denies weakness Psychiatric: Psychiatric: Denies confusion, Denies depression, Denies auditory hallucinations, Denies homicidal ideation and Denies suicidal ideation Endocrine: Endocrine: Denies cold intolerance, Denies excessive sweating, Denies fatigue, Denies heat intolerance and Denies palpitations Hematologic/Lymphatic: Hematologic/Lymphatic: Denies easy bleeding and Denies easy bruising Allergic/Immunologic: Allergic/Immunologic: Denies lip swelling, Denies throat swelling and Denies tongue swelling PMFSH Past Medical History Medical History Alcoholism Chronic GERD GERD (gastroesophageal reflux disease) HTN (hypertension) Lung mass Peripheral arterial disease Peripheral neuropathy Tobacco abuse Surgical History Surgical History Above knee amputation of right lower extremity Family History Family History Sibling Skin cancer Father Diabetes mellitus Mother Hypertension Social History Social History Social History: Patient has 2 steps to enter to his single level home. Patient has a full basement with a flig
[2022-02-06 13:18] LABS: Basophils Percent Auto 0.5 % (0.2-1.2); Eosinophils Absolute Auto 0.1 K/mm3 (0-0.3); Eosinophils Percent Auto 1.2 % (0-4.4); Hematocrit 44.1 % (42.0-52.0); Hemoglobin 14.8 g/dL (14.0-18.0); Immature Granulocyte Absolute 0.02 K/mm3 (0.00-0.031); Immature Granulocyte Percent A 0.2 % (0-0.5); Lymphocytes Absolute Auto 1.75 K/mm3 (0.9-3.2); Lymphocytes Percent Auto 20.3 % (18.3-44.2); Mean Corpuscular HGB Conc 33.6 g/dl (32-36); Mean Corpuscular Hemoglobin 34.1 pg (26-34); Mean Corpuscular Volume 101.6 fl (80-100); Mean Platelet Volume 8.1 fl (7.4-10.4); Monocytes Absolute Auto 0.8 K/mm3 (0.1-0.6); Monocytes Percent Auto 8.7 % (2.6-8.5); Neutrophils Percent Auto 69.1 % (45.5-73.1); Platelet Count Result 500 k/mm3 (150-375); Red Blood Count 4.34 M/mm3 (4.6-6.20); Red Cell Distribution Width 16.2 % (11.5-14.5); White Blood Count 8.6 K/mm3 (4.5-10.0)
[2022-02-06 13:30] LABS: Prothrombin Time 13.2 Seconds (11.1-14.7)
[2022-02-06 13:31] VITALS: BP 137/74; O2SAT 96
[2022-02-06 13:31] LABS: Partial Thromboplastin Time 25.8 SECONDS (22.3-36.8)
[2022-02-06 13:36] LABS: Anion Gap 11 mmol/L (8-16); Blood Urea Nitrogen 15 mg/dL (9-20); Calcium 8.5 mg/dL (8.4-10.2); Carbon Dioxide 23 mmol/L (22-30); Chloride 99 mmol/L (98-107); Estimated CRCL calculation 104 ml/min; Estimated Glomerular Filt Rate > 60; Glucose 94 mg/dL (65-110); Potassium 4.2 mmol/L (3.4-5.0); Sodium 133 mmol/L (137-145)
== END 2022-02-06 16:48 | disposition home or self-care (01) ==
PROVIDERS: Emergency Provider Emergency Medicine; PCP Internal Medicine
DX: M79.605 Pain in left leg (principal); K21.9 Gastro-esophageal reflux disease without esophagitis; I10 Essential (primary) hypertension; I73.9 Peripheral vascular disease, unspecified; G62.9 Polyneuropathy, unspecified; Z89.611 Acquired absence of right leg above knee; F17.210 Nicotine dependence, cigarettes, uncomplicated; Z79.82 Long term (current) use of aspirin
CPT/HCPCS: 36415; 80048; 85025; 85610; 85730; 93926; 93971; 99284

== ENCOUNTER 2022-04-03 15:02 | Emergency (ER) | payer MEDICARE, MEDICAID, SELFPAY ==
--- NOTE | ~2022-04-03 | CT_ITS ---
EXAMINATION: CT abdomen pelvis wo con DATE: 04/03/2022 16:51 INDICATION: hematuria TECHNIQUE: Computed tomography (CT) of the abdomen and pelvis was performed without intravenous contr ast. Automated exposure control and iterative reconstruction technique were employed. The dose-length product was 1389.98 mGy-cm. COMPARISON: Chest CT 07/10/2020. FINDINGS: Lower thorax: Bibasilar scar/atelectasis. Coronary calcifications. Small hiatal hernia. Liver: Normal. Biliary/Gallbladder: Gallbladder is contracted, with stones of the gallbladder neck. No bile duct dil ation. Pancreas: No mass or duct dilation. Spleen: Normal. Adrenals:No mass. Kidneys: Punctate nonobstructive midpole calcification. No mass or hydronephrosis. GI tract: No small or large bowel dilation. Normal appendix. Mesentery/Peritoneum: No ascites, mass, or free air. Retroperitoneum: No mass. Atherosclerotic abdominal aortic and/or arterial calcifications. Pelvis: Bladder wall thickening likely due to chronic outlet compromise from prostatomegaly. Right sc rotal calcifications. Soft Tissues: Small fat-containing umbilical and bilateral inguinal hernias. Bones: No acute osseous finding. IMPRESSION: No acute abdominopelvic process. Reviewed, dictated and finalized at location K.
--- NOTE | ~2022-04-03 | XR_ITS ---
EXAMINATION: XR chest 1V portable Exam Date/Time: 04/03/2022 15:40 CDT HISTORY: hypotension and weakness Comparison: 06/09/2021. RESULT: Lines, tubes, and devices: Right upper extremity PICC terminating in the SVC. Lungs and pleura: Diffuse hazy opacity over the right lung, likely artifact from rotation. Cardiomediastinal silhouette: Stable cardiomediastinal silhouette. Other: No acute osseous or upper abdominal finding. IMPRESSION: No acute cardiopulmonary process. Reviewed, dictated and finalized at location K.
[2022-04-03 15:10] VITALS: BP 88/63; PULSE 97; RESP 20; TEMP 36.2; O2SAT 99
[2022-04-03] MEDS: SODIUM CHLORIDE 0.9% IV 1,000 ML 999 ML IV CONT (15:33)
--- NOTE | 2022-04-03 15:35 | ECG_ITS ---
Measurements Intervals [place] Rate: 93 P: 14 IA: 142 QRS: 35 QRSD: 132 T: 14 QT: 361 QTc: 451 Interpretive Statements SINUS RHYTHM RIGHT BUNDLE BRANCH BLOCK [120+ ms QRS DURATION, UPRIGHT V1, 40+ ms S IN I/aVL/V4/V5/V6] ABNORMAL ECG COMPARED TO ECG 01/20/2021 14:07:29 HEART RATE HAS DECREASED AND PVCS NO LONGER APPRECIATED Electronically Signed On 04-04-2022 14:26:14 CDT by Anirudh Mcghee M.D.
[2022-04-03 15:40] LABS: Basophils Absolute Auto 0.08 K/mm3 (0.00-0.10); Basophils Percent Auto 0.8 % (0.0-1.0); Eosinophils Absolute Auto 0.85 K/mm3 (0.02-0.50); Eosinophils Percent Auto 8.9 % (1.0-6.0); Hematocrit 36.3 % (40.0-54.0); Hemoglobin 12.3 g/dL (14.0-18.0); Immature Granulocyte Absolute 0.04 K/mm3 (0.00-0.00); Immature Granulocyte Percent A 0.4 % (0.0-0.0); Lymphocytes Absolute Auto 1.58 K/mm3 (1.10-4.50); Lymphocytes Percent Auto 16.5 % (18.0-42.0); Mean Corpuscular HGB Conc 33.9 g/dL (32.0-36.0); Mean Corpuscular Hemoglobin 32.6 pg (27.0-31.0); Mean Corpuscular Volume 96.3 fL (78.0-102.0); Mean Platelet Volume 8.8 fl (8.7-11.0); Monocytes Absolute Auto 0.76 K/mm3 (0.10-0.90); Monocytes Percent Auto 7.9 % (2.0-11.0); Neutrophils Absolute Auto 6.3 K/mm3 (1.7-7.2); Neutrophils Percent Auto 65.5 % (50.0-70.0); Platelet Count Result 387 K/mm3 (150-420); Red Blood Count 3.77 M/mm3 (4.70-6.10); Red Cell Distribution Width 14.4 % (11.6-14.4); White Blood Count 9.6 K/mm3 (4.8-10.8)
--- NOTE | 2022-04-03 15:46 | ED.BACK ---
HPI - Back Pain/Injury General Chief Complaint: Back Pain/Injury Stated Complaint: back pain Time Seen by Provider: 04/03/22 15:06 Source: patient and RN notes reviewed Mode of arrival: wheelchair Limitations: no limitations History of Present Illness MD elicited complaint: back pain Pertinent past history: other (left foot infection being txed with IV antibiotics.) Onset (ago): day(s) (1) Timing: constant Severity: mild Pain scale (0-10): 5 Quality: dull and aching Location: lumbar spine Radiation: none Exacerbating factors: none Relieving factors: none Context: other (no acute injury) Associated symptoms: denies other symptoms Work related injury: No Related Data Home Medications Medication Instructions Recorded Confirmed aspirin 81 mg tablet 81 mg PO DAILY 01/20/21 04/03/22 Allergies Allergy/AdvReac Type Severity Reaction Status Date / Time adhesive tape Allergy Blister Verified 04/03/22 15:44 Review of Systems Review of Systems: All systems reviewed & are unremarkable except as noted in HPI and below Constitutional: Constitutional: Reports no additional constitutional complaints Eyes: Eyes: Reports no additional eye complaints ENT: Reports system reviewed and no additional complaints, except as documented Cardiovascular: Cardiovascular: Reports no additional cardiovascular complaints Respiratory: Respiratory: Reports no additional respiratory complaints Gastrointestinal: Gastrointestinal: Reports no additional gastrointestinal complaints Musculoskeletal: Musculoskeletal: Reports back pain Integumentary/Breasts: Skin/Breast: Reports system reviewed and no additional complaints, except as docu Neurologic: Reports system reviewed and no additional complaints, except as documented Psychiatric: Psychiatric: Reports no additional psychiatric complaints Endocrine: Endocrine: Reports no additional endocrine complaints Hematologic/Lymphatic: Hematologic/Lymphatic: Reports no additional hematologic/lymphatic complaints Allergic/Immunologic: Allergic/Immunologic: Reports no additional allergic/immunologic complaints [facility] Past Medical History Medical History (Updated 04/03/22 @ 16:14 by Main Bravo MD) Alcoholism Back pain Chronic GERD GERD (gastroesophageal reflux disease) HTN (hypertension) Lung mass Peripheral arterial disease Peripheral neuropathy Tobacco abuse Surgical History Surgical History Above knee amputation of right lower extremity Family History Family History Sibling Skin cancer Father Diabetes mellitus Mother Hypertension Social History Social History Social History: Patient has 2 steps to enter to his single level home. Patient has a full basement with a flight of stairs. Patient is on disability. Patient was working for [employer] for over 20 years. Smoking packs per day: 1 Smoking cigarettes per day: 20.0 Years smoked: 40 Smoking pack-years: 40.00 Smoking status: Current some day smoker Tobacco type: cigarettes Second hand tobacco smoke exposure: Yes Alcohol intake: current Drinks per week: 6 Substance use: never Substance use type: does not use Gender identity (if verbalized by the patient): Male Sexual Orientation (if Verbalized by the Patient): Straight or Heterosexual Spiritual care concerns: No Agree to blood products: Yes Exam Const: General: no acute distress Nutritional Appearance: well nourished and thin (pale) Orientation/consciousness: patient oriented x3 Limitations: no limitations HENMT: Head: normal to inspection Ears: external ears normal, TM's normal bilaterally and EAC's normal General nose exam: Normal external nose present and Normal nares present Face and sinus: normal facial exam and sinuses nontender Mouth: Y
[2022-04-03] MEDS: KETOROLAC 30 MG/ML VIAL (*BKC) IM (15:50)
[2022-04-03 16:02] LABS: Alanine Aminotransferase 20 U/L (16-63); Alkaline Phosphatase 102 U/L (46-116); Anion Gap 8 mmol/L (8-16); Aspartate Amino Transferase 13 U/L (15-37); Bilirubin,Total 0.3 mg/dL (0.00-1.00); Blood Urea Nitrogen 13 mg/dL (7-18); Calcium 8.3 mg/dL (8.5-10.1); Carbon Dioxide 27 mmol/L (21-32); Chloride 96 mmol/L (98-108); Estimated Glomerular Filt Rate > 60; Glucose 99 mg/dL (70-99); Osmolality Calculated 272 mOsm/kg (285-295); Potassium 3.8 mmol/L (3.5-5.1); Sodium 131 mmol/L (136-145); Total Protein 6.6 g/dL (6.4-8.2); Troponin I 12.9 ng/L (0.00-60.4)
--- NOTE | 2022-04-03 16:32 | PC.NURSE ---
urine sent to lab, noted to be dark coffee colored. pt states has been that way for the past 1 month since surgery to left foot. has been using a urinal. erp notified. added labs and ct of abdomin
[2022-04-03 16:38] LABS: Appearance Urine Clear (Clear); Bilirubin Urine 2+ (Negative); Blood Urine Negative (Negative); Glucose Urine UA Negative (Negative); Ketones Urine Trace (Negative); Leukocyte Esterase Ur Trace (Negative); Nitrate Urine Positive (Negative); Protein Urine 2+ (Negative)
[2022-04-03 16:49] LABS: Add Urine Microscopic? YES; Color Urine Dark Orange (Yellow); RBC Urine 0-2 /hpf (0-2); Squamous Epithelial Cell Urine Few /hpf (Few)
[2022-04-03 16:50] LABS: Bacteria Urine 2+ /hpf; Mucus Urine Heavy /lpf
[2022-04-03 16:59] LABS: INR 4.8; Partial Thromboplastin Time 54.1 SEC (23.90-30.70); Prothrombin Time 46.6 Seconds (9.50-12.10)
--- NOTE | 2022-04-03 17:18 | PC.NURSE ---
pt watching tv. call holliday in reach. no complaints voiced . awaiting ct
[2022-04-03 17:32] VITALS: BP 101/74; PULSE 87; RESP 20; TEMP 36.6; O2SAT 94
[2022-04-03] MEDS: PHYTONADIONE 5 MG TABLET 10 MG PO (17:45)
== END 2022-04-03 17:48 | disposition home or self-care (01) ==
PROVIDERS: Emergency Provider Emergency Medicine; PCP Internal Medicine
DX: E86.0 Dehydration (principal); M54.9 Dorsalgia, unspecified; K21.9 Gastro-esophageal reflux disease without esophagitis; I10 Essential (primary) hypertension; I73.9 Peripheral vascular disease, unspecified; F17.200 Nicotine dependence, unspecified, uncomplicated
CPT/HCPCS: 36415; 71045; 74176; 80053; 81001; 84484; 85025; 85610; 85730; 93005; 96360; 96365; 96372; 99284; A9270; J0878; J1885; J7030

== ENCOUNTER 2022-04-09 13:41 | Outpatient (CLI) | payer MEDICARE, SELFPAY ==
[2022-04-09 14:46] LABS: Add Urine Microscopic? YES; Appearance Urine Clear (Clear); Bilirubin Urine Negative (Negative); Blood Urine Negative (Negative); Color Urine Dark Yellow (Yellow); Glucose Urine UA Negative (Negative); Ketones Urine Negative (Negative); Leukocyte Esterase Ur Trace (Negative); Nitrate Urine Negative (Negative); Protein Urine Trace (Negative); Specific Grav Ur 1.025 (1.010-1.020); Urobilinogen Urine 0.2 mg/dL (0.2-1.0); pH Urine 6.5 (5.0-8.0)
[2022-04-09 14:50] LABS: Bacteria Urine 1+ /hpf; Mucus Urine Moderate /lpf; RBC Urine None seen /hpf (0-2); Squamous Epithelial Cell Urine Rare /hpf (Few); WBC Urine None seen /hpf (0-3)
== END 2022-04-09 13:42 | disposition home or self-care (01) ==
LOC: CHSLAB 13:43
PROVIDERS: PCP Internal Medicine; Visit Provider Internal Medicine
DX: N39.0 Urinary tract infection, site not specified (principal)
CPT/HCPCS: 81001; 87086

== ENCOUNTER 2022-04-19 13:42 | Outpatient (CLI) | payer MEDICARE, SELFPAY ==
[2022-04-19 14:41] LABS: INR 2.5; Prothrombin Time 25.1 Seconds (9.50-12.10)
[2022-04-19 14:56] LABS: Ferritin 373 ng/mL (26-388); Iron 40 ug/dL (65-175); Vitamin B12 374 pg/mL (193-986)
[2022-04-19 15:39] LABS: Alanine Aminotransferase 24 U/L (16-63); Albumin Level 3.2 g/dL (3.4-5.0); Alkaline Phosphatase 124 U/L (46-116); Anion Gap 10 mmol/L (8-16); Aspartate Amino Transferase 18 U/L (15-37); Bilirubin,Total 0.3 mg/dL (0.00-1.00); Blood Urea Nitrogen 8 mg/dL (7-18); Calcium 8.8 mg/dL (8.5-10.1); Carbon Dioxide 26 mmol/L (21-32); Chloride 93 mmol/L (98-108); Creatine Kinase 39 U/L (39-308); Estimated Glomerular Filt Rate > 60; Glucose 102 mg/dL (70-99); Osmolality Calculated 266 mOsm/kg (285-295); Potassium 4.4 mmol/L (3.5-5.1); Sodium 129 mmol/L (136-145); Total Protein 7.1 g/dL (6.4-8.2)
[2022-04-21 21:35] LABS: Red Blood Cell Folate 512 ng/mL RBC (>280)
== END 2022-04-19 13:43 | disposition home or self-care (01) ==
LOC: CHSLAB 13:45
PROVIDERS: PCP Internal Medicine; Visit Provider Internal Medicine
DX: Z79.01 Long term (current) use of anticoagulants (principal); D64.0 Hereditary sideroblastic anemia
CPT/HCPCS: 36415; 80053; 82550; 82607; 82728; 82747; 83540; 85610

== ENCOUNTER 2022-04-20 14:55 | Outpatient (RCR) | payer MEDICARE, MEDICAID, SELFPAY ==
[2022-03-18 15:00] VITALS: BMI 31.2
[2022-03-18] MEDS: HEPARIN SODIUM LOCK FLUSH 500 UNITS/5 ML SYRINGE IV PUSH (15:03)
[2022-03-19] MEDS: HEPARIN SODIUM LOCK FLUSH 500 UNITS/5 ML SYRINGE IV PUSH (14:34)
[2022-03-20] MEDS: HEPARIN SODIUM LOCK FLUSH 500 UNITS/5 ML SYRINGE IV PUSH (14:03)
--- NOTE | 2022-03-21 15:05 | PC.NURSE ---
Arrived to room 201
--- NOTE | 2022-03-21 15:16 | PC.NURSE ---
BLOOD DRAWN FOR ORDERED LABS FROM PICC LINE TO RIGHT UPPER ARM.
--- NOTE | 2022-03-21 16:21 | PC.NURSE ---
Patient received IV antibiotic per MD orders. Labs obtained per MD order. PICC line flushed with NS and Heparin after completion of IV dose. Patient tolerated well. Able to wheel wheelchair to car.
[2022-03-21 16:35] LABS: Alanine Aminotransferase 47 U/L (16-63); Albumin Level 3.2 g/dL (3.4-5.0); Alkaline Phosphatase 67 U/L (46-116); Anion Gap 8 mmol/L (8-16); Aspartate Amino Transferase 37 U/L (15-37); Bilirubin,Total 0.2 mg/dL (0.00-1.00); Blood Urea Nitrogen 17 mg/dL (7-18); Calcium 8.7 mg/dL (8.5-10.1); Carbon Dioxide 27 mmol/L (21-32); Chloride 96 mmol/L (98-108); Creatine Kinase 154 U/L (39-308); Estimated CRCL calculation 105 ml/min; Estimated Glomerular Filt Rate > 60; Glucose 105 mg/dL (70-99); Osmolality Calculated 273 mOsm/kg (285-295); Potassium 4.1 mmol/L (3.5-5.1); Sodium 131 mmol/L (136-145); Total Protein 7.1 g/dL (6.4-8.2)
[2022-03-21 16:40] LABS: INR 6.1
[2022-03-22] MEDS: HEPARIN SODIUM LOCK FLUSH 500 UNITS/5 ML SYRINGE IV PUSH (15:56)
[2022-03-23 14:12] VITALS: BMI 31.1
[2022-03-23 14:21] VITALS: BP 110/67; PULSE 78; RESP 14; TEMP 36.6; O2SAT 98
--- NOTE | 2022-03-23 14:23 | PC.NURSE ---
Patient here for daily IV Daptamycin antibiotic via patent picc line. Dressing change to right upper double picc line. Site asystomatic of s/sx of infection. No concerns voiced on infusion. IV Daptamycin administered -see DEC. Tolerated well. Safe exit of hospital.
[2022-03-23] MEDS: HEPARIN SODIUM LOCK FLUSH 500 UNITS/5 ML SYRINGE IV PUSH (14:42)
[2022-03-24 14:22] VITALS: BP 110/63; PULSE 62; RESP 14; TEMP 36.4; O2SAT 98
[2022-03-24 14:24] LABS: Creatine Kinase 115 U/L (39-308)
--- NOTE | 2022-03-24 14:24 | PC.NURSE ---
Patient here for daily IV Antibiotic Daptomycin. INR and CK drawn from red port duo picc line without difficulty and sent to lab. IV Daptomycin administered via patent picc line SEE MAR. Tolerated well Safe exit of hospital. Will return tomorrow at 1400 03/25/22.
[2022-03-24 14:28] LABS: INR 3.5; Prothrombin Time 34.4 Seconds (9.50-12.10)
[2022-03-24] MEDS: HEPARIN SODIUM LOCK FLUSH 500 UNITS/5 ML SYRINGE IV PUSH (14:49)
[2022-03-25 14:00] VITALS: BP 120/64; PULSE 64; RESP 14; TEMP 36.3; O2SAT 98
--- NOTE | 2022-03-25 14:37 | PC.NURSE ---
Patient here for daily IV Daptomycin infusion via patent Picc-double. No concerns voiced. IV Daptomycin administered. SEE MAR. Tolerated well. Safe exit of hospital Will be back tomorrow 03/26/21 at 1400.
[2022-03-25] MEDS: HEPARIN SODIUM LOCK FLUSH 500 UNITS/5 ML SYRINGE IV PUSH (14:55)
[2022-03-26] MEDS: HEPARIN SODIUM LOCK FLUSH 500 UNITS/5 ML SYRINGE IV PUSH (13:55)
[2022-03-27] MEDS: HEPARIN SODIUM LOCK FLUSH 500 UNITS/5 ML SYRINGE IV PUSH (14:06)
[2022-03-28 14:17] VITALS: BP 100/63; PULSE 92; RESP 16; TEMP 36.3; O2SAT 98; BMI 31.2
[2022-03-28 14:41] LABS: Prothrombin Time 29.9 Seconds (9.50-12.10)
[2022-03-28 14:44] LABS: Alanine Aminotransferase 33 U/L (16-63); Albumin Level 3.1 g/dL (3.4-5.0); Alkaline Phosphatase 87 U/L (46-116); Anion Gap 8 mmol/L (8-16); Aspartate Amino Transferase 20 U/L (15-37); Bilirubin,Total 0.3 mg/dL (0.00-1.00); Blood Urea Nitrogen 13 mg/dL (7-18); Calcium 8.7 mg/dL (8.5-10.1); Carbon Dioxide 27 mmol/L (21-32); Chloride 98 mmol/L (98-108); Creatine Kinase 66 U/L (39-308); Estimated CRCL calculation 111 ml/min; Estimated Glomerular Filt Rate > 60; Glucose 101 mg/dL (70-99); Osmolality Calculated 276 mOsm/kg (285-295); Potassium 3.8 mmol/L (3.5-5.1); Sodium 133 mmol/L (136-145); Total Protein 6.9 g/dL (6.4-8.2)
--- NOTE | 2022-03-28 14:52 | PC.NURSE ---
Patient here for daily IV ABX-Daptomycin infusion. No concerns voiced. Weekly PT/INR, CK CMP drawn from red port of double lumen picc line. IV Daptomycin administered via patent purple port of picc. SEE MAR. Tolerated well. Both lumen/ports flushed per protocol. Safe exit of hospital. Will return tomorrow 03/29/22 at 1400.
[2022-03-28] MEDS: HEPARIN SODIUM LOCK FLUSH 500 UNITS/5 ML SYRINGE IV PUSH (15:07)
[2022-03-29 13:54] VITALS: BP 101/60; PULSE 78; RESP 14; TEMP 36.3; O2SAT 99
--- NOTE | 2022-03-29 14:40 | PC.NURSE ---
Patient here for his daily IV ABX-Daptomycin infusion. No concerns voiced. IV Daptomycin administered via patent picc line-purple lumen. SEE MAR. Tolerated well. Safe exit of hospital. Will return tomorrow at 1400 03/30/22.
[2022-03-29] MEDS: HEPARIN SODIUM LOCK FLUSH 500 UNITS/5 ML SYRINGE IV PUSH (14:44)
[2022-03-30 13:56] VITALS: BP 112/63; PULSE 78; RESP 14; TEMP 36.8; O2SAT 99
[2022-03-30] MEDS: HEPARIN SODIUM LOCK FLUSH 500 UNITS/5 ML SYRINGE IV PUSH (14:15)
--- NOTE | 2022-03-30 14:37 | PC.NURSE ---
Patient here for daily IV Daptomycin antibiotic. No concerns. voiced. Picc line dressing change completed. IV Daptomycin administered via patent picc line purple lumen. SEE MAR. Tolerated well. Safe exit of hospital. Will return tomorrow at 1400 03/31/22.
[2022-03-31 14:04] VITALS: BP 112/64; PULSE 80; RESP 16; TEMP 36.6; O2SAT 98
[2022-03-31 14:20] LABS: Creatine Kinase 68 U/L (39-308)
[2022-03-31] MEDS: HEPARIN SODIUM LOCK FLUSH 500 UNITS/5 ML SYRINGE IV PUSH (14:20)
--- NOTE | 2022-03-31 14:36 | PC.NURSE ---
Patient here for daily IV Daptomycin Antibiotic infusion. Lab CK drown from red lumen port on double lumen port and sent to lab. IV Daptomycin administered via patent Picc line SEE MAR. Tolerated well. Safe exit of hospital. Will return tomorrow at 1400 04/01/22.
[2022-04-01 13:55] VITALS: BP 101/60; PULSE 80; RESP 14; TEMP 36.4; O2SAT 98
--- NOTE | 2022-04-01 14:23 | PC.NURSE ---
Patient here for daily IV Daptomycin Antibiotic infusion. No concerns voiced. IV Daptomycin administered via patent picc line - purple lumen port. SEE MAR. Tolerated well. Safe exit of hospital. Will return tomorrow 04/02/22 at 1400.
[2022-04-01] MEDS: HEPARIN SODIUM LOCK FLUSH 500 UNITS/5 ML SYRINGE IV PUSH (14:30)
[2022-04-02] MEDS: HEPARIN SODIUM LOCK FLUSH 500 UNITS/5 ML SYRINGE IV PUSH (14:35)
--- NOTE | 2022-04-02 14:35 | PC.NURSE ---
Patient tolerated infusion well. PICC line dressing clean dry and intact. Both lumens flushed well. Patient left floor via personal wheelchair. Denies any questions at this time.
[2022-04-03] MEDS: HEPARIN SODIUM LOCK FLUSH 500 UNITS/5 ML SYRINGE IV PUSH (14:45)
--- NOTE | 2022-04-03 14:45 | PC.NURSE ---
Patient here for IV ATB. Tolerated infusion well. PICC line flushed well. Patient left floor via private wheelchair. States he is going to go to the ER due to being out of pain medication.
[2022-04-04 14:14] VITALS: BP 97/53; PULSE 102; RESP 14; TEMP 36.6; O2SAT 97; BMI 31.3
[2022-04-04 14:27] LABS: INR 1.3; Prothrombin Time 14.3 Seconds (9.50-12.10)
[2022-04-04 14:30] LABS: Alanine Aminotransferase 21 U/L (16-63); Alkaline Phosphatase 102 U/L (46-116); Anion Gap 5 mmol/L (8-16); Aspartate Amino Transferase 19 U/L (15-37); Bilirubin,Total 0.3 mg/dL (0.00-1.00); Blood Urea Nitrogen 16 mg/dL (7-18); Calcium 8.1 mg/dL (8.5-10.1); Carbon Dioxide 26 mmol/L (21-32); Chloride 99 mmol/L (98-108); Creatine Kinase 82 U/L (39-308); Estimated CRCL calculation 90 ml/min; Estimated Glomerular Filt Rate > 60; Glucose 113 mg/dL (70-99); Osmolality Calculated 272 mOsm/kg (285-295); Potassium 4.1 mmol/L (3.5-5.1); Sodium 130 mmol/L (136-145); Total Protein 6.6 g/dL (6.4-8.2)
--- NOTE | 2022-04-04 14:35 | PC.NURSE ---
Patient here for daily IV Daptomycin antibiotic infusion. Reported went to ED after yesterdays r/t back pain and not feeling well. Founded low B/P-fluids administered. Also noted UTI. Reports feels better today. SEE vital signs. Labs drawn as ordered sent to lab. IV Daptomycin administered via patient double port picc licc line. SEE MAR. Tolerated well. Safe exit of hospital.
--- NOTE | 2022-04-04 14:57 | PC.NURSE ---
Lab results faxed to [facility] as stated on order.
--- NOTE | 2022-04-05 14:46 | PC.NURSE ---
Patient here for daily IV antibiotic Daptomycin. No concerns voiced. Patient without s/sx of dizziness, lightheadedness. Noted b/p's 90's. Call LM with Dr. Johnson. IV Daptomycin administered via patent PICC line. SEE MAR. Tolerated well. Safe exit of hospital. Will return tomorrow.
[2022-04-05] MEDS: HEPARIN SODIUM LOCK FLUSH 500 UNITS/5 ML SYRINGE IV PUSH (14:55)
[2022-04-05 14:57] VITALS: BP 89/59; PULSE 102; RESP 14; TEMP 35.9; O2SAT 97
[2022-04-06 14:14] VITALS: BP 99/57; PULSE 92; RESP 14; TEMP 36.6; O2SAT 98
--- NOTE | 2022-04-06 14:21 | PC.NURSE ---
Patient here for daily IV Daptomycin Antibiotic infusion. Dressing to patent Right upper arm PICC double lumen port completed. Site asystomatic s/sx of infection. No concerns voiced. IV Daptomycin administered. SEE MAR. Tolerated well. Safe exit of hospital. Will return tomorrow.
[2022-04-06] MEDS: HEPARIN SODIUM LOCK FLUSH 500 UNITS/5 ML SYRINGE IV PUSH (14:50)
[2022-04-07 14:03] VITALS: BP 87/43; PULSE 100; RESP 16; TEMP 36.1; O2SAT 97
[2022-04-07 14:16] LABS: INR 1.1; Prothrombin Time 11.6 Seconds (9.50-12.10)
[2022-04-07 14:18] LABS: Creatine Kinase 82 U/L (39-308)
[2022-04-07 14:36] VITALS: BP 90/56; PULSE 96; RESP 14; O2SAT 97
--- NOTE | 2022-04-07 14:37 | PC.NURSE ---
Patient here for daily IV Daptomycin Antibiotic. B/P running low see vitals. Notified Dr. Johnson. Patient did take his Lisinopril [address] Johnson would like him to go to ED, but patient was just there Monday and they didn't do anything. Patient denies dizziness, weakness, lightheadness. Patient does have an appointment tomorrow with Dr. Johnson. Patient reports he will not take his lisinopril tomorrow and see Dr. Johnson as scheduled. IV Daptomycin administered. Tolerated well. SEE DEC. B/P on discharge was 90/56 taking manually. Patient safely discharged.
[2022-04-07] MEDS: HEPARIN SODIUM LOCK FLUSH 500 UNITS/5 ML SYRINGE IV PUSH (14:44)
[2022-04-08 14:04] VITALS: BP 101/59; PULSE 92; RESP 14; TEMP 36.4; O2SAT 97
--- NOTE | 2022-04-08 14:19 | PC.NURSE ---
Patient here for daily IV ABX-Daptomycin. No concerns voiced. B/P ^ see vital signs. IV Daptomycin administered. SEE MAR. Tolerated well. Safe exit of hospital. Has an appointment with Dr. Alex bernard at his office. Will return tomorrow 04/09/22 at 1400.
[2022-04-08] MEDS: HEPARIN SODIUM LOCK FLUSH 500 UNITS/5 ML SYRINGE IV PUSH (14:38)
[2022-04-09 14:03] VITALS: BP 110/64; PULSE 100; RESP 18; TEMP 36.2; O2SAT 96; BMI 31.3
[2022-04-09] MEDS: HEPARIN SODIUM LOCK FLUSH 500 UNITS/5 ML SYRINGE IV PUSH (14:33)
[2022-04-10] MEDS: HEPARIN SODIUM LOCK FLUSH 500 UNITS/5 ML SYRINGE IV PUSH (13:51)
[2022-04-10 14:08] VITALS: BP 105/54; PULSE 94; RESP 18; TEMP 36; O2SAT 98
[2022-04-11 13:55] VITALS: BP 97/59; PULSE 88; RESP 14; TEMP 36.7; O2SAT 99
[2022-04-11 14:09] LABS: INR 1.3; Prothrombin Time 13.5 Seconds (9.50-12.10)
[2022-04-11 14:10] LABS: Alanine Aminotransferase 21 U/L (16-63); Albumin Level 2.9 g/dL (3.4-5.0); Alkaline Phosphatase 120 U/L (46-116); Anion Gap 8 mmol/L (8-16); Aspartate Amino Transferase 15 U/L (15-37); Bilirubin,Total 0.3 mg/dL (0.00-1.00); Blood Urea Nitrogen 9 mg/dL (7-18); Calcium 8.4 mg/dL (8.5-10.1); Carbon Dioxide 25 mmol/L (21-32); Chloride 96 mmol/L (98-108); Creatine Kinase 48 U/L (39-308); Estimated CRCL calculation 119 ml/min; Estimated Glomerular Filt Rate > 60; Glucose 99 mg/dL (70-99); Osmolality Calculated 266 mOsm/kg (285-295); Potassium 4.1 mmol/L (3.5-5.1); Sodium 129 mmol/L (136-145); Total Protein 6.4 g/dL (6.4-8.2)
[2022-04-11] MEDS: HEPARIN SODIUM LOCK FLUSH 500 UNITS/5 ML SYRINGE IV PUSH (14:32)
--- NOTE | 2022-04-11 14:32 | PC.NURSE ---
Patient here for daily IV Daptomycin Antibiotic infusion. Reported back on Coumadin and Lisinopril has been dc'd. Is watching b/p see vitals. No concerns voiced. IV Daptomycin administered via patent PICC line - SEE DEC. Tolerated well. Will return tomorrow at 1400. Safe exit of hospital.
--- NOTE | 2022-04-11 14:45 | PC.NURSE ---
Labs drawn prior to IV Daptomycin from Picc line and sent to lab. Results reviewed and faxed Mark LYONS
--- NOTE | 2022-04-12 14:05 | PC.NURSE ---
Pt to outpatient infusion center of IV abx infusion. Pt A&Ox3. Has no questions or complaints.
[2022-04-12 14:16] VITALS: BP 97/63
[2022-04-12] MEDS: HEPARIN SODIUM LOCK FLUSH 500 UNITS/5 ML SYRINGE IV PUSH (14:46)
--- NOTE | 2022-04-12 14:47 | PC.NURSE ---
IV abx infused. Pt tolerated well. Has no complaints. Discharged to home per .
--- NOTE | 2022-04-13 14:05 | PC.NURSE ---
Pt to room 201 per wc. A&Ox3. Oriented to room. Call holliday in reach. Plan of care explained. PICC line dressing changed per protocol. Site without redness, edema or drainage. Pt tolerated well. Has no complaints. Reminded to call with needs.
[2022-04-13 14:19] VITALS: BP 98/60
[2022-04-13] MEDS: HEPARIN SODIUM LOCK FLUSH 500 UNITS/5 ML SYRINGE IV PUSH (14:37)
--- NOTE | 2022-04-13 14:57 | PC.NURSE ---
Medication infused without difficulty. Pt tolerated well. Discharged to home per .
[2022-04-14 15:42] VITALS: BMI 31.3
[2022-04-14 15:43] VITALS: BP 98/65; PULSE 106; RESP 18; TEMP 35.9; O2SAT 96
[2022-04-14] MEDS: HEPARIN SODIUM LOCK FLUSH 500 UNITS/5 ML SYRINGE IV PUSH (16:24)
[2022-04-15 13:54] VITALS: BP 97/63
--- NOTE | 2022-04-15 13:55 | PC.NURSE ---
Pt to room 201 per wc. A&Ox3. Has no complaints. Oriented to room. Call holliday in reach. Reminded to call with needs.
[2022-04-15] MEDS: HEPARIN SODIUM LOCK FLUSH 500 UNITS/5 ML SYRINGE IV PUSH (14:50)
--- NOTE | 2022-04-15 14:54 | PC.NURSE ---
Pt tolerated infusion well. Has no complaints. Discharged to home per .
[2022-04-16 14:00] VITALS: BP 95/64; PULSE 95; RESP 18; TEMP 36.2; O2SAT 95
--- NOTE | 2022-04-16 14:35 | PC.NURSE ---
Patient tolerated infusion well. Vital signs stable. PICC dressing clean dry and intact. Patient accompanied to front door via wheelchair by this nurse. Denies any needs at discharge.
[2022-04-17] MEDS: HEPARIN SODIUM LOCK FLUSH 500 UNITS/5 ML SYRINGE IV PUSH (14:35)
[2022-04-17 14:45] VITALS: BP 96/60
--- NOTE | 2022-04-17 14:46 | PC.NURSE ---
Patient PICC line intact, dressing intact. Blood pressure 96/60. No c/o offered. Tolerated infusion. Lines flushed with NS and Heparin. Patient assisted to his car.
[2022-04-18 14:10] VITALS: BP 114/66; PULSE 96; RESP 16; TEMP 36.2; O2SAT 96
[2022-04-18] MEDS: HEPARIN SODIUM LOCK FLUSH 500 UNITS/5 ML SYRINGE IV PUSH (14:45)
--- NOTE | 2022-04-18 14:45 | PC.NURSE ---
Patient tolerated infusion well. Vital signs stable. Patient accompanied to front door via wheelchair by motel front desk clerk. Left via private vehicle.
[2022-04-19 14:36] VITALS: BP 104/66; PULSE 88; RESP 14; TEMP 36.6; O2SAT 98
[2022-04-19] MEDS: HEPARIN SODIUM LOCK FLUSH 500 UNITS/5 ML SYRINGE IV PUSH (14:52)
--- NOTE | 2022-04-19 14:53 | PC.NURSE ---
Patient here for daily IV Daptomycin infusion. No concerns voiced. Weekly CPK and CMP drawn faxed to [facility]. IV Daptomycin administered via patent Picc line. SEE MAR. Tolerated well. Had appt. with ID at [facility] tomorrow afternoon -will wait to see if needing more IV ABX or not. Safe exit of hospital.
[2022-04-20 15:03] VITALS: BP 112/72; PULSE 92; RESP 14; TEMP 36.6; O2SAT 98
[2022-04-20] MEDS: HEPARIN SODIUM LOCK FLUSH 500 UNITS/5 ML SYRINGE IV PUSH (15:14)
--- NOTE | 2022-04-20 15:24 | PC.NURSE ---
Patient here for last of daily Daptomycin IV antibiotic infusion. IV Daptomycin administered. SEE MAR. PICC line pulled- site asystomatic of s/sx of infection. Pressure dressing applied. Tolerated well. Safe exit of hospital.
== END 2022-06-16 23:59 | disposition home or self-care (01) ==
LOC: CHSTREATRM 14:55
PROVIDERS: PCP Internal Medicine
DX: M86.9 Osteomyelitis, unspecified (principal); Z79.01 Long term (current) use of anticoagulants; N39.0 Urinary tract infection, site not specified
CPT/HCPCS: 36415; 80053; 81001; 82550; 82607; 82728; 82747; 83540; 85610; 87086; 96365; 96366; 96368; J0878

== ENCOUNTER 2022-04-25 11:56 | Outpatient (CLI) | payer MEDICARE, SELFPAY ==
[2022-04-25 12:56] LABS: Anion Gap 9 mmol/L (8-16); Blood Urea Nitrogen 8 mg/dL (7-18); Calcium 9.2 mg/dL (8.5-10.1); Carbon Dioxide 24 mmol/L (21-32); Chloride 97 mmol/L (98-108); Estimated Glomerular Filt Rate > 60; Glucose 120 mg/dL (70-99); Osmolality Calculated 269 mOsm/kg (285-295); Potassium 4.1 mmol/L (3.5-5.1); Sodium 130 mmol/L (136-145)
== END 2022-04-25 11:57 | disposition home or self-care (01) ==
LOC: CHSLAB 11:58
PROVIDERS: PCP Internal Medicine; Visit Provider Internal Medicine
DX: E87.1 Hypo-osmolality and hyponatremia (principal)
CPT/HCPCS: 36415; 80048

== ENCOUNTER 2022-04-26 10:43 | Outpatient (NON) | payer MEDICARE, SELFPAY ==
[2022-04-26 11:13] LABS: Occult Blood Negative (Negative)
[2022-04-26 11:13] LABS: Occult Blood Negative (Negative)
[2022-04-26 11:13] LABS: Occult Blood Negative (Negative)
== END 2022-04-26 10:44 | disposition home or self-care (01) ==
LOC: CHSLAB 10:44
PROVIDERS: PCP Internal Medicine; Visit Provider Internal Medicine
DX: D64.0 Hereditary sideroblastic anemia (principal)
CPT/HCPCS: 82272

== ENCOUNTER 2022-04-26 12:14 | Outpatient (CLI) | payer MEDICARE, MEDICAID, SELFPAY ==
--- NOTE | ~2022-04-26 | XR_ITS ---
XR lumbar spine 2-3V DATE: 04/26/2022 13:02 INDICATION: Chronic low back pain for one week TECHNIQUE: AP, lateral, coned lateral lumbosacral views COMPARISON: None FINDINGS: Minimal levoscoliosis of the lumbar spine. Osteopenia. Moderate anterior wedge compression fracture deformity of L1, likely chronic. There is degenerative spurring throughout the lumbar and lumbosacral spine, most prominent with bridg ing anterior osteophytes at L3-4, L4-5 and L5-S1. Moderately prominent degenerative disc disease at L 4-5 and L5-S1. The included lower thoracic and lumbar pedicles are intact. The sacroiliac joints are normal. Extensive calcification of the abdominal aorta and iliac arteries without evidence of abdominal aorti c aneurysm IMPRESSION: Osteopenia Moderate anterior wedge compression fracture deformity of L1 Degenerative change Reviewed, dictated and finalized at location A.
== END 2022-04-26 12:15 | disposition home or self-care (01) ==
LOC: CHSIMG 12:16
PROVIDERS: PCP Internal Medicine; Visit Provider Internal Medicine
DX: M54.50 Low back pain, unspecified (principal)
CPT/HCPCS: 72100

== ENCOUNTER 2022-04-30 09:11 | Outpatient (CLI) | payer MEDICARE, MEDICAID, SELFPAY ==
--- NOTE | ~2022-04-30 | MR_ITS ---
EXAMINATION: MR lumbar spine wo con DATE: 04/30/2022 10:31 INDICATION: Chronic low back pain. TECHNIQUE: Magnetic resonance imaging (MRI) of the lumbar spine was performed without intravenous con trast. Sequences included sagittal T2-weighted FSE, sagittal T2-weighted FS FSE, sagittal T1-weighted FSE, and axial T2-weighted FSE. COMPARISON: Lumbar spine radiographs 04/26/2022, CT abdomen and pelvis 04/03/2022 FINDINGS: There is 10 degrees levoscoliosis of lumbar spine. There is a compression fracture of L1 wi th 2/5 loss of height and bone marrow edema. There is moderately decreased disc height at L4-L5 and m ildly decreased disc height at L5-S1 with endplate remodeling. The distal spinal cord signal intensit y is normal. The conus medullaris is at L1. There is focal volume loss of left kidney. The following disc levels are specifically discussed: L1-L2: The disc is bulging. There is moderate right and mild left facet joint osteoarthritis. There i s mild bilateral neural foraminal stenosis. There is mild central canal stenosis. L2-L3: The disc is bulging. There is moderate bilateral facet joint osteoarthritis. There is mild zehra ateral neural foraminal stenosis. There is no central canal stenosis. L3-L4: The disc is bulging. There is moderate bilateral facet joint osteoarthritis. There is moderate bilateral neural foraminal stenosis. There is mild central canal stenosis. L4-L5: The disc is bulging. There is mild bilateral facet joint osteoarthritis. There is moderate zehra ateral neural foraminal stenosis. There is mild central canal stenosis. L5-S1: The disc is bulging. There is moderate bilateral facet joint osteoarthritis. There is moderate bilateral neural foraminal stenosis. There is mild central canal stenosis. IMPRESSION: 1. Subacute L1 compression fracture, stable from 04/26/2022. 2. Moderate lumbar spondylosis. Reviewed, dictated and finalized at location A.
== END 2022-04-30 09:12 | disposition home or self-care (01) ==
LOC: CHSIMG 09:13
PROVIDERS: PCP Internal Medicine; Visit Provider Internal Medicine
DX: M54.50 Low back pain, unspecified (principal); G89.29 Other chronic pain
CPT/HCPCS: 72148

== ENCOUNTER 2022-05-18 14:49 | Outpatient (NON) | payer MEDICARE, SELFPAY ==
[2022-05-18 15:00] LABS: Basophils Absolute Auto 0.04 K/mm3 (0.00-0.10); Basophils Percent Auto 0.7 % (0.0-1.0); Eosinophils Absolute Auto 0.17 K/mm3 (0.02-0.50); Eosinophils Percent Auto 2.8 % (1.0-6.0); Hematocrit 36.1 % (40.0-54.0); Hemoglobin 12.1 g/dL (14.0-18.0); Immature Granulocyte Absolute 0.02 K/mm3 (0.00-0.00); Immature Granulocyte Percent A 0.3 % (0.0-0.0); Lymphocytes Absolute Auto 1.86 K/mm3 (1.10-4.50); Mean Corpuscular HGB Conc 33.5 g/dL (32.0-36.0); Mean Corpuscular Hemoglobin 29.9 pg (27.0-31.0); Mean Corpuscular Volume 89.1 fL (78.0-102.0); Mean Platelet Volume 9.3 fl (8.7-11.0); Monocytes Absolute Auto 0.61 K/mm3 (0.10-0.90); Monocytes Percent Auto 10.2 % (2.0-11.0); Neutrophils Absolute Auto 3.3 K/mm3 (1.7-7.2); Platelet Count Result 357 K/mm3 (150-420); Red Blood Count 4.05 M/mm3 (4.70-6.10); Red Cell Distribution Width 13.3 % (11.6-14.4)
[2022-05-18 15:15] LABS: Alanine Aminotransferase 59 U/L (16-63); Albumin Level 3.2 g/dL (3.4-5.0); Alkaline Phosphatase 153 U/L (46-116); Anion Gap 13 mmol/L (8-16); Aspartate Amino Transferase 31 U/L (15-37); Bilirubin,Total 0.2 mg/dL (0.00-1.00); Blood Urea Nitrogen 10 mg/dL (7-18); Calcium 8.6 mg/dL (8.5-10.1); Carbon Dioxide 23 mmol/L (21-32); Chloride 92 mmol/L (98-108); Estimated Glomerular Filt Rate > 60; Glucose 93 mg/dL (70-99); Osmolality Calculated 265 mOsm/kg (285-295); Potassium 3.5 mmol/L (3.5-5.1); Sodium 128 mmol/L (136-145); Total Protein 6.7 g/dL (6.4-8.2)
== END 2022-05-18 14:50 | disposition home or self-care (01) ==
LOC: CHSLAB 14:52
DX: M86.9 Osteomyelitis, unspecified (principal); Z79.2 Long term (current) use of antibiotics
CPT/HCPCS: 36415; 80053; 85025

== ENCOUNTER 2022-05-25 15:12 | Outpatient (NON) | payer MEDICARE, SELFPAY ==
[2022-05-25 16:05] LABS: Basophils Absolute Auto 0.05 K/mm3 (0.00-0.10); Basophils Percent Auto 0.8 % (0.0-1.0); Eosinophils Absolute Auto 0.27 K/mm3 (0.02-0.50); Eosinophils Percent Auto 4.5 % (1.0-6.0); Hematocrit 35.8 % (40.0-54.0); Hemoglobin 11.7 g/dL (14.0-18.0); Immature Granulocyte Absolute 0.02 K/mm3 (0.00-0.00); Immature Granulocyte Percent A 0.3 % (0.0-0.0); Lymphocytes Absolute Auto 1.96 K/mm3 (1.10-4.50); Mean Corpuscular HGB Conc 32.7 g/dL (32.0-36.0); Mean Corpuscular Hemoglobin 29.5 pg (27.0-31.0); Mean Corpuscular Volume 90.2 fL (78.0-102.0); Mean Platelet Volume 9.1 fl (8.7-11.0); Monocytes Absolute Auto 0.41 K/mm3 (0.10-0.90); Monocytes Percent Auto 6.9 % (2.0-11.0); Neutrophils Absolute Auto 3.2 K/mm3 (1.7-7.2); Neutrophils Percent Auto 54.5 % (50.0-70.0); Platelet Count Result 331 K/mm3 (150-420); Red Blood Count 3.97 M/mm3 (4.70-6.10); Red Cell Distribution Width 13.7 % (11.6-14.4); White Blood Count 5.9 K/mm3 (4.8-10.8)
[2022-05-25 16:14] LABS: Alanine Aminotransferase 29 U/L (16-63); Albumin Level 3.2 g/dL (3.4-5.0); Alkaline Phosphatase 138 U/L (46-116); Anion Gap 9 mmol/L (8-16); Aspartate Amino Transferase 13 U/L (15-37); Bilirubin,Total 0.2 mg/dL (0.00-1.00); Blood Urea Nitrogen 12 mg/dL (7-18); Calcium 8.5 mg/dL (8.5-10.1); Carbon Dioxide 26 mmol/L (21-32); Chloride 100 mmol/L (98-108); Estimated Glomerular Filt Rate > 60; Glucose 89 mg/dL (70-99); Osmolality Calculated 278 mOsm/kg (285-295); Potassium 3.5 mmol/L (3.5-5.1); Sodium 135 mmol/L (136-145); Total Protein 6.4 g/dL (6.4-8.2)
[2022-05-25 16:19] LABS: Prothrombin Time 52.5 Seconds (9.50-12.10)
[2022-05-25 16:31] LABS: INR 5.5
== END 2022-05-25 15:13 | disposition home or self-care (01) ==
DX: Z79.01 Long term (current) use of anticoagulants (principal); T87.44 Infection of amputation stump, left lower extremity; Z79.2 Long term (current) use of antibiotics
CPT/HCPCS: 80053; 85025; 85610

== ENCOUNTER 2022-05-26 12:40 | Outpatient (CLI) | payer MEDICARE, MEDICAID, SELFPAY ==
--- NOTE | ~2022-05-26 | XR_ITS ---
XR lumbar spine 2-3V DATE: 05/26/2022 12:59 INDICATION: L1 fracture follow-up TECHNIQUE: AP, lateral, coned lateral lumbosacral views COMPARISON: 04/30/2022 MR lumbar spine 04/26/2022 lumbar spine FINDINGS: Diffuse osteopenia. Mild levoscoliosis of the lumbar spine. Moderate anterior wedge compression fracture deformity of L1 is stable since 04/26/2022. Moderate degenerative disc disease of the lumbar spine, particularly at L4-5 and L5-S1. Prominent alyson dging osteophytes of the mid to lower lumbar spine. The lumbar pedicles are intact. No bone destruction is noted. No spondylolisthesis. The sacroiliac linda ints are intact. IMPRESSION: Stable L1 compression fracture since 04/26/2022 Osteopenia Moderately prominent degenerative disc disease and prominent spurring Reviewed, dictated and finalized at location B.
== END 2022-05-26 12:41 | disposition home or self-care (01) ==
LOC: CHSIMG 12:43
PROVIDERS: PCP Internal Medicine; Visit Provider Internal Medicine
DX: S32.019D Unspecified fracture of first lumbar vertebra, subsequent encounter for fracture with routine healing (principal)
CPT/HCPCS: 72100

== ENCOUNTER 2022-07-11 11:08 | Outpatient (CLI) | payer MEDICARE, MEDICAID, SELFPAY ==
--- NOTE | ~2022-07-11 | XR_ITS ---
XR lumbar spine 2-3V 07/11/2022 11:42 Indication: Follow-up vertebral fracture Procedure: 4 views lumbar spine Comparison: Comparison to multiple prior studies sequentially, with oldest reviewed study dated 04/26. Findings: There is a stable superior endplate compression fracture of L1. There is degenerative disc disease at L4-5 and L5-S1. There are prominent ventral osteophytes at the lower lumbar spine. There i s moderate lower lumbar facet hypertrophy. No new fractures. Impression: 1: Stable L1 superior endplate compression fracture. 2: Moderate-severe lumbar spondylosis. Reviewed, dictated and finalized at location B. Impression: 1: Stable L1 superior endplate compression fracture. 2: Moderate-severe lumbar spondylosis.
== END 2022-07-11 11:09 | disposition home or self-care (01) ==
LOC: CHSIMG 11:12
PROVIDERS: PCP Internal Medicine; Visit Provider Internal Medicine
DX: S32.019D Unspecified fracture of first lumbar vertebra, subsequent encounter for fracture with routine healing (principal)
CPT/HCPCS: 72100

== ENCOUNTER 2022-07-25 10:21 | Outpatient (NON) | payer MEDICARE, SELFPAY ==
[2022-07-25 10:38] LABS: INR 2.2
== END 2022-07-25 10:22 | disposition home or self-care (01) ==
LOC: CHSLAB 10:23
PROVIDERS: Visit Provider Internal Medicine
DX: I73.9 Peripheral vascular disease, unspecified (principal)
CPT/HCPCS: 85610

== ENCOUNTER 2022-10-03 09:34 | Outpatient (CLI) | payer MEDICARE, SELFPAY ==
[2022-10-03 10:21] LABS: Anion Gap 10 mmol/L (8-16); Blood Urea Nitrogen 10 mg/dL (7-18); Calcium 8.9 mg/dL (8.5-10.1); Carbon Dioxide 27 mmol/L (21-32); Chloride 95 mmol/L (98-108); Estimated Glomerular Filt Rate > 60; Glucose 89 mg/dL (70-99); Osmolality Calculated 272 mOsm/kg (285-295); Potassium 4.5 mmol/L (3.5-5.1); Sodium 132 mmol/L (136-145)
== END 2022-10-03 09:35 | disposition home or self-care (01) ==
LOC: CHSLAB 09:36
PROVIDERS: PCP Internal Medicine; Visit Provider Internal Medicine
DX: E87.1 Hypo-osmolality and hyponatremia (principal)
CPT/HCPCS: 36415; 80048

== ENCOUNTER 2022-10-17 09:10 | Outpatient (CLI) | payer MEDICARE, SELFPAY ==
[2022-10-17 09:58] LABS: Alanine Aminotransferase 16 U/L (16-63); Albumin Level 3.8 g/dL (3.4-5.0); Alkaline Phosphatase 98 U/L (46-116); Anion Gap 9 mmol/L (8-16); Aspartate Amino Transferase 12 U/L (15-37); Bilirubin,Total 0.6 mg/dL (0.00-1.00); Blood Urea Nitrogen 8 mg/dL (7-18); Calcium 9.1 mg/dL (8.5-10.1); Carbon Dioxide 26 mmol/L (21-32); Chloride 93 mmol/L (98-108); Estimated Glomerular Filt Rate > 60; Glucose 80 mg/dL (70-99); Osmolality Calculated 263 mOsm/kg (285-295); Potassium 3.9 mmol/L (3.5-5.1); Sodium 128 mmol/L (136-145); Total Protein 7.2 g/dL (6.4-8.2)
== END 2022-10-17 09:11 | disposition home or self-care (01) ==
LOC: CHSLAB 09:12
PROVIDERS: PCP Internal Medicine; Visit Provider Internal Medicine
DX: E87.1 Hypo-osmolality and hyponatremia (principal)
CPT/HCPCS: 36415; 80053

== ENCOUNTER 2022-10-21 11:41 | Outpatient (CLI) | payer MEDICARE, SELFPAY ==
--- NOTE | ~2022-10-21 | US_ITS ---
Duplex Sonography of the left extremity: Indication: Swelling Findings: Sagittal and transverse B-mode images as well as color-flow imaging were performed on the l eft femoral and popliteal veins. B-mode examination was done without and with compression in the tra nsverse plane. There is good visualization of the common femoral, proximal profunda femoral, superfi cial femoral, greater saphenous, and popliteal veins. Normal flow was seen on color-flow imaging. No rmal compressibility was demonstrated. Visualized calf veins are also patent. There is a 7.0 x 3.2 x 1.5 cm fluid collection or cystic mass in the distal left thigh. Impression: No evidence of deep vein thrombosis involving the left lower extremity. 7.0 x 3.2 x 1.5 cm fluid collection or cystic mass in the distal left thigh. This is somewhat nonspec ific. Diagnostic considerations could include a seroma, posttraumatic fluid collection/liquefying hem atoma, or possibly abscess. Correlate with femoral and clinical history and symptomatology. MR could be considered for further imaging evaluation is indicated. Reviewed, dictated and finalized at location . [employer] E[employer]MENT [employer]IDE Impression: No evidence of deep vein thrombosis involving the left lower extremity. 7.0 x 3.2 x 1.5 cm fluid collection or cystic mass in the distal left thigh. Th is is somewhat nonspecific. Diagnostic considerations could include a seroma, p osttraumatic fluid collection/liquefying hematoma, or possibly abscess. Correla te with femoral and clinical history and symptomatology. MR could be considered for further imaging evaluation is indicated.
== END 2022-10-21 11:42 | disposition home or self-care (01) ==
LOC: CHSIMG 11:43
PROVIDERS: PCP Internal Medicine; Visit Provider Internal Medicine
DX: M79.89 Other specified soft tissue disorders (principal)
CPT/HCPCS: 93971

== ENCOUNTER 2022-10-28 15:02 | Outpatient (NON) | payer MEDICARE, SELFPAY ==
[2022-10-28 15:16] LABS: Add Urine Microscopic? NO; Bilirubin Urine Negative (Negative); Blood Urine Negative (Negative); Color Urine Yellow (Yellow); Glucose Urine UA Negative (Negative); Ketones Urine Negative (Negative); Leukocyte Esterase Ur Negative (Negative); Nitrate Urine Negative (Negative); Protein Urine Negative (Negative); Specific Grav Ur 1.015 (1.010-1.020); Urobilinogen Urine 0.2 mg/dL (0.2-1.0)
[2022-10-28 15:18] LABS: Appearance Urine Slightly Cloudy (Clear); RBC Urine None seen /hpf (0-2)
[2022-10-28 15:19] LABS: Bacteria Urine Trace /hpf; Calcium Oxalate Crystals Urine Present /hpf; Squamous Epithelial Cell Urine Rare /hpf (Few)
== END 2022-10-28 15:03 | disposition home or self-care (01) ==
LOC: CHSLAB 15:06
DX: N30.01 Acute cystitis with hematuria (principal)
CPT/HCPCS: 81003

== ENCOUNTER 2022-10-31 11:30 | Outpatient (NON) | payer MEDICARE, SELFPAY ==
[2022-10-31 12:09] LABS: Anion Gap 11 mmol/L (8-16); Blood Urea Nitrogen 6 mg/dL (7-18); Carbon Dioxide 25 mmol/L (21-32); Chloride 93 mmol/L (98-108); Estimated Glomerular Filt Rate > 60; Glucose 86 mg/dL (70-99); Osmolality Calculated 264 mOsm/kg (285-295); Potassium 3.8 mmol/L (3.5-5.1); Sodium 129 mmol/L (136-145)
== END 2022-10-31 11:31 | disposition home or self-care (01) ==
LOC: CHSLAB 11:32
PROVIDERS: Visit Provider Internal Medicine
DX: E87.1 Hypo-osmolality and hyponatremia (principal)
CPT/HCPCS: 80048

== ENCOUNTER 2023-01-23 11:07 | Outpatient (NON) | payer MEDICARE, SELFPAY ==
[2023-01-23 11:22] LABS: Anion Gap 8 mmol/L (8-16); Blood Urea Nitrogen 7 mg/dL (7-18); Calcium 8.5 mg/dL (8.5-10.1); Carbon Dioxide 26 mmol/L (21-32); Chloride 94 mmol/L (98-108); Estimated Glomerular Filt Rate > 60; Glucose 108 mg/dL (70-99); Osmolality Calculated 265 mOsm/kg (285-295); Potassium 3.9 mmol/L (3.5-5.1); Sodium 128 mmol/L (136-145)
== END 2023-01-23 11:08 | disposition home or self-care (01) ==
LOC: CHSLAB 11:09
PROVIDERS: Visit Provider Internal Medicine
DX: E87.1 Hypo-osmolality and hyponatremia (principal)
CPT/HCPCS: 80048

== ENCOUNTER 2023-01-30 08:58 | Outpatient (CLI) | payer MEDICARE, SELFPAY ==
--- NOTE | ~2023-01-30 | CT_ITS ---
CT Scan of the Chest without Contrast: Clinical Indication: Lung cancer screening, personal history of nicotine dependence Technique: Contiguous sections were acquired throughout the chest without intravenous contrast. Dose reduction technique was used on this scan by utilizing automated exposure control and iterative recon struction technique. The dose-length product (DLP) was 277.67 mGy-cm. COMPARISON: 07/10/2020 Findings: There is no evidence of any significant mediastinal, hilar or axillary lymphadenopathy. Coronary wayne ry calcifications are present. There is no evidence of pleural or pericardial effusion. There is probable chronic postinflammatory scarring at the right lung base. Scattered calcified granu luisito are noted. There is mild cystic change at the right lung apex, stable from prior exam. Images through the upper abdomen reveal no abnormalities. Impression: Lung RADS 2: Benign appearance. 12 month follow-up screening CT advised. Reviewed, dictated and finalized at [facility]. Impression: Lung RADS 2: Benign appearance. 12 month follow-up screening CT advised.
[2023-01-30 09:58] LABS: Anion Gap 10 mmol/L (8-16); Blood Urea Nitrogen 9 mg/dL (7-18); Carbon Dioxide 28 mmol/L (21-32); Chloride 97 mmol/L (98-108); Estimated Glomerular Filt Rate > 60; Glucose 108 mg/dL (70-99); Osmolality Calculated 279 mOsm/kg (285-295); Potassium 4.1 mmol/L (3.5-5.1); Sodium 135 mmol/L (136-145)
== END 2023-01-30 08:59 | disposition home or self-care (01) ==
PROVIDERS: PCP Internal Medicine; Visit Provider Internal Medicine
DX: Z12.2 Encounter for screening for malignant neoplasm of respiratory organs (principal); Z87.891 Personal history of nicotine dependence
CPT/HCPCS: 36415; 71271; 80048

== ENCOUNTER 2023-03-01 09:55 | Outpatient (NON) | payer MEDICARE, SELFPAY ==
[2023-03-01 10:15] LABS: Anion Gap 8 mmol/L (8-16); Blood Urea Nitrogen 7 mg/dL (7-18); Calcium 8.9 mg/dL (8.5-10.1); Carbon Dioxide 28 mmol/L (21-32); Chloride 93 mmol/L (98-108); Estimated Glomerular Filt Rate > 60; Glucose 123 mg/dL (70-99); Osmolality Calculated 267 mOsm/kg (285-295); Potassium 3.7 mmol/L (3.5-5.1); Sodium 129 mmol/L (136-145)
== END 2023-03-01 09:56 | disposition home or self-care (01) ==
LOC: CHSLAB 09:57
PROVIDERS: Visit Provider Internal Medicine
DX: I10 Essential (primary) hypertension (principal)
CPT/HCPCS: 36415; 80048

== ENCOUNTER 2023-04-19 09:55 | Outpatient (CLI) | payer MEDICARE, SELFPAY ==
[2023-04-19 10:42] LABS: Anion Gap 10 mmol/L (8-16); Blood Urea Nitrogen 9 mg/dL (7-18); Calcium 9.2 mg/dL (8.5-10.1); Carbon Dioxide 26 mmol/L (21-32); Chloride 95 mmol/L (98-108); Estimated Glomerular Filt Rate > 60; Glucose 114 mg/dL (70-99); Osmolality Calculated 271 mOsm/kg (285-295); Potassium 4.7 mmol/L (3.5-5.1); Sodium 131 mmol/L (136-145)
== END 2023-04-19 09:56 | disposition home or self-care (01) ==
LOC: CHSLAB 09:56
PROVIDERS: PCP Internal Medicine; Visit Provider Internal Medicine
DX: E87.1 Hypo-osmolality and hyponatremia (principal)
CPT/HCPCS: 36415; 80048

== ENCOUNTER 2023-06-01 09:24 | Outpatient (CLI) | payer MEDICARE, SELFPAY ==
[2023-06-01 10:53] LABS: Anion Gap 10 mmol/L (8-16); Blood Urea Nitrogen 9 mg/dL (7-18); Carbon Dioxide 27 mmol/L (21-32); Chloride 95 mmol/L (98-108); Estimated Glomerular Filt Rate > 60; Glucose 122 mg/dL (70-99); Osmolality Calculated 273 mOsm/kg (285-295); Potassium 4.2 mmol/L (3.5-5.1); Sodium 132 mmol/L (136-145)
== END 2023-06-01 09:25 | disposition home or self-care (01) ==
LOC: CHSLAB 09:26
PROVIDERS: PCP Internal Medicine; Visit Provider Internal Medicine
DX: E87.1 Hypo-osmolality and hyponatremia (principal)
CPT/HCPCS: 36415; 80048

== ENCOUNTER 2023-07-14 09:09 | Outpatient (CLI) | payer MEDICARE, SELFPAY ==
[2023-07-14 09:26] LABS: Basophils Absolute Auto 0.03 K/mm3 (0.00-0.10); Basophils Percent Auto 0.4 % (0.0-1.0); Eosinophils Absolute Auto 0.33 K/mm3 (0.02-0.50); Eosinophils Percent Auto 4.3 % (1.0-6.0); Hematocrit 43.8 % (40.0-54.0); Hemoglobin 14.5 g/dL (14.0-18.0); Immature Granulocyte Absolute 0.02 K/mm3 (0.00-0.00); Immature Granulocyte Percent A 0.3 % (0.0-0.0); Lymphocytes Absolute Auto 1.68 K/mm3 (1.10-4.50); Lymphocytes Percent Auto 21.7 % (18.0-42.0); Mean Corpuscular HGB Conc 33.1 g/dL (32.0-36.0); Mean Corpuscular Hemoglobin 29.8 pg (27.0-31.0); Mean Corpuscular Volume 89.9 fL (78.0-102.0); Mean Platelet Volume 8.8 fl (8.7-11.0); Monocytes Absolute Auto 0.61 K/mm3 (0.10-0.90); Monocytes Percent Auto 7.9 % (2.0-11.0); Neutrophils Absolute Auto 5.1 K/mm3 (1.7-7.2); Neutrophils Percent Auto 65.4 % (50.0-70.0); Platelet Count Result 284 K/mm3 (150-420); Red Blood Count 4.87 M/mm3 (4.70-6.10); Red Cell Distribution Width 13.2 % (11.6-14.4); White Blood Count 7.8 K/mm3 (4.8-10.8)
[2023-07-14 09:28] LABS: Appearance Urine Clear (Clear); Bilirubin Urine Negative (Negative); Blood Urine Negative (Negative); Color Urine Light Yellow (Yellow); Glucose Urine UA Negative (Negative); Ketones Urine Negative (Negative); Leukocyte Esterase Ur Negative LEU/UL (Negative); Nitrate Urine Negative (Negative); Protein Urine Negative (Negative); Specific Grav Ur 1.025 (1.010-1.020); Urobilinogen Urine 0.2 mg/dL (0.2-1.0); pH Urine 6.5 (5.0-8.0)
[2023-07-14 09:43] LABS: Add Urine Microscopic? NO
[2023-07-14 09:53] LABS: Alanine Aminotransferase 22 U/L (16-63); Albumin Level 3.7 g/dL (3.4-5.0); Alkaline Phosphatase 82 U/L (46-116); Anion Gap 11 mmol/L (8-16); Aspartate Amino Transferase 13 U/L (15-37); Bilirubin,Total 0.3 mg/dL (0.00-1.00); Blood Urea Nitrogen 10 mg/dL (7-18); Calcium 9.2 mg/dL (8.5-10.1); Carbon Dioxide 26 mmol/L (21-32); Chloride 103 mmol/L (98-108); Cholesterol 98 mg/dL (0-200); Creatine Kinase 126 U/L (39-308); Estimated Glomerular Filt Rate > 60; Glucose 129 mg/dL (70-99); HDL Direct 31 mg/dL (40-60); LDL Cholesterol Calculated 46 mg/dL (<130); Osmolality Calculated 291 mOsm/kg (285-295); Potassium 3.9 mmol/L (3.5-5.1); Sodium 140 mmol/L (136-145); Total Protein 6.6 g/dL (6.4-8.2); Triglycerides 105 mg/dL (0-150)
== END 2023-07-14 09:10 | disposition home or self-care (01) ==
LOC: CHSLAB 09:12
PROVIDERS: PCP Internal Medicine; Visit Provider Internal Medicine
DX: I10 Essential (primary) hypertension (principal); R73.01 Impaired fasting glucose; E87.1 Hypo-osmolality and hyponatremia; E78.2 Mixed hyperlipidemia; N39.0 Urinary tract infection, site not specified
CPT/HCPCS: 36415; 80053; 80061; 81003; 82550; 83036; 85025

== ENCOUNTER 2024-01-12 10:19 | Outpatient (CLI) | payer MEDICARE, MEDICAID, SELFPAY ==
[2024-01-12 10:36] LABS: Basophils Absolute Auto 0.06 K/mm3 (0.00-0.10); Basophils Percent Auto 0.6 % (0.0-1.0); Eosinophils Absolute Auto 0.51 K/mm3 (0.02-0.50); Eosinophils Percent Auto 4.9 % (1.0-6.0); Hematocrit 48.3 % (40.0-54.0); Hemoglobin 15.6 g/dL (14.0-18.0); Immature Granulocyte Absolute 0.02 K/mm3 (0.00-0.00); Immature Granulocyte Percent A 0.2 % (0.0-0.0); Lymphocytes Absolute Auto 2.36 K/mm3 (1.10-4.50); Lymphocytes Percent Auto 22.5 % (18.0-42.0); Mean Corpuscular HGB Conc 32.3 g/dL (32-36); Mean Corpuscular Hemoglobin 27.8 pg (27.0-31.0); Mean Corpuscular Volume 86.1 fL (78.0-102.0); Mean Platelet Volume 8.3 fl (8.7-11.0); Monocytes Absolute Auto 0.58 K/mm3 (0.10-0.90); Monocytes Percent Auto 5.5 % (2.0-11.0); Neutrophils Absolute Auto 6.98 K/mm3 (1.70-7.20); Neutrophils Percent Auto 66.3 % (50.0-70.0); Platelet Count Result 292 K/mm3 (150-420); Red Blood Count 5.61 M/mm3 (4.70-6.10); Red Cell Distribution Width 13.9 % (11.6-14.4); White Blood Count 10.5 K/mm3 (4.8-10.8)
[2024-01-12 10:40] LABS: Appearance Urine Clear (Clear); Bilirubin Urine Negative (Negative); Blood Urine Negative (Negative); Color Urine Yellow (Yellow); Glucose Urine UA Negative (Negative); Ketones Urine Negative (Negative); Leukocyte Esterase Ur Negative LEU/UL (Negative); Nitrate Urine Negative (Negative); Protein Urine Negative (Negative); Urobilinogen Urine 0.2 mg/dL (0.2-1.0)
[2024-01-12 10:49] LABS: Hemoglobin A1C 5.7 % (<5.7)
[2024-01-12 10:54] LABS: Add Urine Microscopic? NO
[2024-01-12 11:11] LABS: Alanine Aminotransferase 25 U/L (16-63); Albumin Level 3.7 g/dL (3.4-5.0); Alkaline Phosphatase 75 U/L (46-116); Anion Gap 8 mmol/L (4-12); Aspartate Amino Transferase 12 U/L (15-37); Bilirubin,Total 0.3 mg/dL (0.00-1.00); Blood Urea Nitrogen 9 mg/dL (7-18); Calcium 8.9 mg/dL (8.5-10.1); Carbon Dioxide 28 mmol/L (21-32); Chloride 99 mmol/L (98-108); Cholesterol 189 mg/dL (0-200); Creatine Kinase 89 U/L (39-308); Estimated Glomerular Filt Rate > 60; Glucose 128 mg/dL (70-99); HDL Direct 35 mg/dL (40-60); LDL Cholesterol Calculated 111 mg/dL (<130); Osmolality Calculated 280 mOsm/kg (285-295); Potassium 4.2 mmol/L (3.5-5.1); Prostate Specific Antigen 1.6 ng/mL (< OR = 4.0); Sodium 135 mmol/L (136-145); Total Protein 6.5 g/dL (6.4-8.2); Triglycerides 217 mg/dL (0-150)
== END 2024-01-12 10:20 | disposition home or self-care (01) ==
LOC: CHSLAB 10:22
PROVIDERS: PCP Internal Medicine; Visit Provider Internal Medicine
DX: N39.0 Urinary tract infection, site not specified (principal); I10 Essential (primary) hypertension; R73.01 Impaired fasting glucose; E78.2 Mixed hyperlipidemia; Z12.5 Encounter for screening for malignant neoplasm of prostate
CPT/HCPCS: 36415; 80053; 80061; 81003; 82550; 83036; 84153; 85025; G0103

== ENCOUNTER 2024-02-07 11:00 | Outpatient (CLI) | payer MEDICARE, MEDICAID, SELFPAY ==
--- NOTE | ~2024-02-07 | CT_ITS ---
CT Scan of the Chest without Contrast: Clinical Indication: Lung cancer screening, nicotine dependence Technique: Contiguous sections were acquired throughout the chest without intravenous contrast. Dose reduction technique was used on this scan by utilizing automated exposure control and iterative recon struction technique. The dose-length product (DLP) was 258.77 mGy-cm. COMPARISON: 01/30/2023 Findings: There is no evidence of any significant mediastinal, hilar or axillary lymphadenopathy. Coronary wayne ry calcifications are present. There is no evidence of pleural or pericardial effusion. Stable right basilar pulmonary nodule and probable scarring present. Minimal emphysema or cystic massey ge in the upper lobes is stable from prior exam. Calcified granuloma present in the superior segment left lower lobe. Images through the upper abdomen reveal no abnormalities. Impression: Lung as 2: Benign appearance. 12 month follow-up screening CT advised. Reviewed, dictated and finalized at [facility]. Impression: Lung as 2: Benign appearance. 12 month follow-up screening CT advised.
== END 2024-02-07 11:01 | disposition home or self-care (01) ==
LOC: CHSIMG 11:01
PROVIDERS: PCP Internal Medicine; Visit Provider Internal Medicine
DX: Z12.2 Encounter for screening for malignant neoplasm of respiratory organs (principal); Z87.891 Personal history of nicotine dependence
CPT/HCPCS: 71271

== ENCOUNTER 2024-07-22 11:00 | Outpatient (CLI) | payer MEDICARE, MEDICAID, SELFPAY ==
[2024-07-22 11:12] LABS: Hemoglobin 15.4 g/dL (14.0-18.0); Mean Corpuscular HGB Conc 33.5 g/dL (32-36); Mean Corpuscular Hemoglobin 29.2 pg (27.0-31.0); Mean Corpuscular Volume 87.1 fL (78.0-102.0); Mean Platelet Volume 8.8 fl (8.7-11.0); Platelet Count Result 290 K/mm3 (150-420); Red Blood Count 5.28 M/mm3 (4.70-6.10); Red Cell Distribution Width 13.9 % (11.6-14.4); White Blood Count 11.2 K/mm3 (4.8-10.8)
[2024-07-22 11:13] LABS: Add Urine Microscopic? NO; Appearance Urine Clear (Clear); Bilirubin Urine Negative (Negative); Blood Urine Negative (Negative); Color Urine Light Yellow (Yellow); Glucose Urine UA Negative (Negative); Ketones Urine Negative (Negative); Leukocyte Esterase Ur Negative (Negative); Nitrate Urine Negative (Negative); Protein Urine Negative (Negative); Urobilinogen Urine 0.2 mg/dL (0.2-1.0)
[2024-07-22 11:30] LABS: Hemoglobin A1C 5.8 % (<5.7)
[2024-07-22 12:28] LABS: Alanine Aminotransferase 16 U/L (16-63); Alkaline Phosphatase 71 U/L (46-116); Anion Gap 8 mmol/L (4-12); Aspartate Amino Transferase 20 U/L (15-37); Bilirubin,Total 0.5 mg/dL (0.00-1.00); Blood Urea Nitrogen 15 mg/dL (7-18); Calcium 9.2 mg/dL (8.5-10.1); Carbon Dioxide 29 mmol/L (21-32); Chloride 100 mmol/L (98-108); Cholesterol 149 mg/dL (0-200); Estimated Glomerular Filt Rate > 60; Glucose 111 mg/dL (70-99); HDL Direct 32 mg/dL (40-60); LDL Cholesterol Calculated 84 mg/dL (<130); Osmolality Calculated 285 mOsm/kg (285-295); Potassium 4.2 mmol/L (3.5-5.1); Sodium 137 mmol/L (136-145); Total Protein 7.1 g/dL (6.4-8.2); Triglycerides 167 mg/dL (0-150)
== END 2024-07-22 11:01 | disposition home or self-care (01) ==
PROVIDERS: PCP Internal Medicine; Visit Provider Internal Medicine
DX: E11.9 Type 2 diabetes mellitus without complications (principal); I10 Essential (primary) hypertension; E78.2 Mixed hyperlipidemia; I73.9 Peripheral vascular disease, unspecified
CPT/HCPCS: 36415; 80053; 80061; 81003; 83036; 85027

== ENCOUNTER 2025-02-26 08:43 | Outpatient (CLI) | payer MEDICARE, SELFPAY ==
--- OUTSIDE RECORDS SUMMARY | 2025-02-26 08:53 | XMS_ITS | Clinical Summary ---
Author Organization [facility] Address [address] [place], [place] [id number] Care Team Providers Care Commercial Property Manager Name Role Phone Jose Angel Johnson MD Primary Care Provider [phone] Social History Tobacco Use Types Packs/Day Years Used Date Smoking Tobacco: Never Assessed Sex and Gender Information Value Date Recorded Sex Assigned at Not on file Legal Sex Male 11:48 AM CDT Gender Identity Not on file Sexual Orientation Not on file Plan of Treatment Health Maintenance Due Date Last Done Comments Colorectal Cancer Screening Colonoscopy (10 Years) 1964 Annual Physical 1967 Hepatitis C 1982 DTaP, Tdap and Td Vaccines ( 1 - Tdap) 1983 Pneumococcal Vaccine: 50+ Ye ars (1 of 1 - PCV) 2014 Zoster Vaccines (1 of 2) 2014 COVID-19 Vaccine ( - 2023-2 5 season) 2024 RSV Immunization or 60+ Years (1 - 1-dose 75+ series) 2039 Meningococcal B Vaccine Aged Out No l onger eligible based on patient's age to complete this topic Meningococcal Vaccine Aged Out No ba tray eligible based on patient's age to complete this topic RSV Immunizations Under 20 Months Aged Out No longer eligible based on patient's age to complete this topic Insurance MEDICARE MEDICAID Care Teams Commercial Property Manager Relationship Specialty Start Date End Date Jose Angel Johnson MD [address] [place] [id number] PCP - General INTERNAL MEDICINE 03/08/23
--- OUTSIDE RECORDS SUMMARY | 2025-02-26 08:53 | XMS_ITS | Clinical Summary ---
Author Organization [email or web address] Address [address] [place]: Epic Prelude ADT [place] [address] Care Team Providers Care Director Of Strategic Sourcing Name Role Phone Unavailable Primary Care Provider Unavailabl e Social History Tobacco Use Types Packs/Day Years Used Date Smoking Tobacco: Never Assessed Sex and Gender Information Value Date Recorded Sex Assigned at Not on file Legal Sex Male 4:20 AM DIRECTOR CPG Gender Identity Not on file Sexual Orientation Not on file Plan of Treatment Health Maintenance Due Date Last Done Comments DTAP/TDAP/TD VACCINES (1 - Tdap) 1983 COLORECTAL SCREENING 2009 Colorectal Cancer Screening 2009 FIT-DNA Q 3 years 2009 FIT/FOBT Q 1 year 2009 Flex Sig/CT Colonography Q 5 years 2009 ZOSTER VACCINE (1 of 2) 2014 INFLUENZA VACCINE (#1) 2024 RSV VACCINE (60+ or ) (1 - 1-dose 75+ series) 2039 HEPATITIS B VACCINES Aged Out No long er eligible based on patient's age to complete this topic
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
--- OUTSIDE RECORDS SUMMARY | 2025-02-26 08:53 | XMS_ITS | Referral Summary ---
Author Organization [facility] Address [address] [place] [address] Care Team Providers Care Mainframe Software Developer Name Role Phone Jose Angel Johnson MD Primary Care Provider [phone] Aman Whitfield MD PhD Unavailable [phone] Allergies Active Allergy Reactions Criticality Noted Date Comments Adhesive Blisters High 03/16/2022 To steri strips Medications multivit minerals-iron- FA-calcium (THERA-M) 9 mg iron-400 mcg tablet Take 1 tablet by mouth daily 11/11/19 20 Active folic acid (FOLVITE) 1 mg tablet Take 1 tablet (1 mg total) by mouth daily for 1 dose 1 tablet 11/11/19 06 026 Active Additional Information Patient not taking.Informant: Self, Reported on 01/29/2024 aspirin 81 mg enteric coated tablet Take 1 tablet (81 mg total) by mouth daily 30 tablet 11 03/04/20 22 Active Additional Information Patient taking differently:81 mg oralEvery morning, Indications: prevention of thrombosis, Informant: Self, Reported on 01/29/2024 acetaminophen (TYLENOL) 500 mg tabletIndicati ons:Pain Take 2 tablets (1,000 mg total) by mouth every 6 (six) hours as needed for pain Active nicotine (NICODERM CQ) [address] 1 patch on the skin daily 21 patch 05/17/[address] (PROTONIX) 40 mg EC tablet 08/01/20 22 Active clopidogreL (PLAVIX) 75 mg tabletIndicati ons:Thrombosis Prevention Take 1 tablet (75 mg total) by mouth daily 30 tablet 09/14/20 22 Active Additional Information Patient taking differently:75 mg oralDaily (early AM), Indications: Peripheral Arterial Thromboembolism Prevention, Thrombosis Prevention, Informant: Self, Reported on 01/29/2024 buPROPion XL (WELLBUTRIN XL) 300 mg 24 hr tablet 09/16/20 22 Active naltrexone (DEPADE) 50 mg tabletIndicati ons:alcoholism Take 1 tablet (50 mg total) by mouth 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 06/18/20 23 Active amLODIPine (NORVASC) 5 mg tabletIndicati ons:hypertensi on Take 1 tablet (5 mg total) by mouth 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 01/01/20 24 Active atorvastatin (LIPITOR) 40 mg tablet Take 1 tablet (40 mg total) by mouth daily 01/27/20 24 Active fluticasone propionate (FLONASE) 50 mcg/actuation nasal sprayIndicatio ns:Allergic Rhinitis Administer 2 sprays into each nostril daily as needed for allergies or rhinitis 01/05/20 24 Active traZODone (DESYREL) 100 mg tabletIndicati ons:insomnia associated with depression Take 1 tablet (100 mg total) by mouth nightly 01/27/20 24 Active Active Problems Problem Noted Date Diagnosed Date Encounter for surgical after care following surgery of circulatory system 02/05/2024 Atherosclerosis of artery of left lower extremit y 09/13/2022 Open wound of foot 09/13/2022 Assessment & Plan (09/13/2022 3:05 PM MARBLE MECHANIC HELPER): - s/p Left TMA 03/06 with multiple revisions, completed IV ABX course 05/23. Patient with continued non healing wound. - Wound RN consult - Elevate LE while in bed Personal history of nicotine dependence 05/17/20 Obesity, unspecified 05/17/2022 FCI (current) use of anticoagulants 2021 Other chronic pain 05/17/2022 Iron deficiency anemia, unspecified 05/17/2022 Hyperlipidemia, unspecified 05/17/2022 History of falling 05/17/2022 Body mass index (BMI) 31.0-31.9, adult Peripheral vascular disease 05/10/2022 Assessment & Plan (02/05/2024 2:31 PM CDT): Hx of PAD with right AKA, left fem to PT bypass, left lower extremity angioplasty and stenting and left TMA with multiple revisions who is now presenting with return of left leg symptoms and vascular lab studies showing high grade stenosis of the popliteal artery and worsening ALFONSO. - OR 02/04 for diagnostic angiogram, no intervention needed. - Bedrest X 4 hours. - Pain control. - PT/OT. - NV monitoring. - Continue aspirin and Plavix. Amputation stump infection 05/04/2022 Overview (05/04/2022): Added automatically from request for surgery [id number] Assessment & Plan (05/13/2022 1:04 PM CDT): Hx gangrene who underwent TMA, operative cultures positive for VRE faecium, Stenotrophomonas. Discharged on IV antibiotics of Daptomycin, minocycline and Flagyl these were completed on 04/20 and his PICC was removed. TMA complicated by slow healing. - OR 05/10 for TMA revision - OR cultures: Enterobacter cloacae - Consult ID: Ertapenem 1000 mg daily - PICC placed 05/12 - Pain control with POPM - PT/OT consult - NWB to L foot x 2 weeks - Vac changed by vascular Monday. Wound care consult for Monday vac change - Plan for discharge home when antibiotic plan finalized. Osteomyelitis 03/10/2022 Assessment & Plan (04/21/2022 6:10 AM CDT): - Continues on IV Daptomycin 900 mg IV every 24 hours, Minocycline 100 mg BID, and Metronidazole 500 mg TID for treatment of left foot OM s/p 03/01 amputation of gangrenous 2/3 toes: OR Cx + mixed, Stenotrophomonas. Later went back to the OR on 03/09/22 for L TMA: OR cultures with necrotic tissue and VRE, Stenotrophomonas. Pathology revealed bone with acute osteomyelitis - Plan to treat with 6 weeks of antibiotics - As of today he has completed 6 weeks of antibiotic therapy - As the wound does continue to heal, there is concern that the area may need to be debrided with vascular to allow for closure of that incision. There is no concern for ongoing infection. With this we will plan to stop antibiotics today. - He is scheduled today at his infusion center to receive his dose of Daptomycin, he reports that he would like to take this last dose. - I called and talked to Yanni at the infusion center in [place], she is aware that this will be his last dose today and that she can pull his PICC line. - Labs from 04/11/22 were reviewed. - Labs today ESR/CRP - Follow with ID as needed - Discussed with patient the rational for treatment, culture results, risk of recurrent infection, signs/symptoms of recurrent infection, and to contact ID clinic with any questions or concerns Assessment & Plan (03/14/2022 9:06 AM CDT): 56 year old male with PMH including: PAD s/p RLE AKA (10/2019), HTN, smoking hx (current) ETOH use was admitted 02/15 from vascular clinic with L foot pain/erythema. He was seen in vascular clinic 02/15 and reported 3 weeks of ongoing pain/erythema/edema similar to what he experienced before R leg (AKA 2019). He had no open wounds or ulcers prior. On admission overall afebrile, HDS. Labs largely unremarkable, except Na 129. Podiatry consulted 02/16 noted superficial wounds on dorsal L foot and base of 2/3 toes. XR without OM. CTA showed multiple arterial blockages. S/p revascularization 02/22 L fem-tib bypass. S/p OR 03/01 for amputation of gangrenous 2/3 toes. OR cx + mixed, Stenotrophomonas. ID consulted on 03/04 regarding foot infection. Due to low c/f residual infection at the time, recommended 10- 14d course of levofloxacin and metronidazole. 03/09 went to OR again for L TMA with e/o necrosis at base of 2/3 metatarsals with c/f possible residual infection intraoperatively. 03/01: -OR wound cx: Stenotrophomonas maltophilia, mixed 03/09: -OR tissue cx (necrotic tissue): VRE faecium and Strenotrophomonas Recommendations: - decrease daptomycin dose to 8mg/kg q24h - discontinue cefepime - continue PO metronidazole and minocycline at current doses - will plan for 6 weeks of antibiotics (start date 03/09) - ok to place PICC line from ID standpoint - CBC with diff, CMP and CK twice weekly. - ID will sign off, please call back with questions Hyponatremia 03/09/2022 Assessment & Plan (03/16/2022 9:43 AM CDT): - Chronic hyponatremia hx. Medicine consulted. - Medicine consult, signed off 03/13. Recs below - Continue 1L free water restriction. Salt tablets tid - Continue NaCl 1g tablets TID if Na <135. Recommend stopping NaCl tablets if sodium >135. Hypertension 02/15/2022 Assessment & Plan (02/05/2024 11:31 AM CDT): Continue home amlodipine when able postoperatively. Assessment & Plan (03/10/2022 11:04 AM CDT): - VS Q4 hrs and PRN - Daily lisinopril ETOH abuse 02/15/2022 Assessment & Plan (09/13/2022 12:00 PM MARBLE MECHANIC HELPER): - Hx of ETOH abuse, CIWA protocol if indicated Assessment & Plan (05/10/2022 6:02 AM CDT): - CIWA protocol if indicated Assessment & Plan (02/16/2022 7:40 AM CDT): - History of elevated ETOH on prior admissions. Experienced significant delirium previous admission, unclear if medication related, alcohol withdrawal or hospital delirium - CIWA protocol - Delirium precautions: Encourage daytime activity, lights on during day, OOBTC, frequent reorientation, minimize interruptions in sleep, Minimize narcotics, bed with window. Nicotine abuse 02/15/2022 Assessment & Plan (02/16/2022 7:41 AM CDT): - Current smoker - Counseled on smoking cessation - NRT PAD (peripheral artery disease) 02/15/2022 Assessment & Plan (09/13/2022 3:04 PM MARBLE MECHANIC HELPER): - 09/13: Left femoral angioplasty and WELCOME HOSTESS atherectomy, L AT pedal puncture and recanalization of popliteal artery. POBA of popliteal and AT. - BR x4 hrs - Monitor incisions/puncture for bleeding/hematoma - Stopping warfarin. ASA and Plavix (no load) - Advance diet as tolerated - NV checks - Pain control Assessment & Plan (05/10/2022 2:41 PM CDT): Hx LLE fem-AT bypass and left foot TMA - Continue aspirin, statin. - Warfarin held for OR for TMA revision. - Continue therapeutic lovenox, resume warfarin POD #1. Assessment & Plan (03/16/2022 9:44 AM CDT): - s/p previous R AKA, presented to Dr. Whitfield's clinic today with LEFT foot pain and erythema, c/f infection. - CT-AIF 5/4 AM, new occlusion of the distal superficial femoral artery, popliteal and tibioperoneal trunk with reconstitution of posterior tibial and peroneal to the mid calf and anterior tibial to the ankle. - L foot x-rays with no obvious osteo - Hematology c/s for idiopathic thromboses per Dr Whitfield; recommends aspirin, plavix, statin on discharge; to be discussed with surgery team perioperatively - Monitored on telemetry given renal infarct on imaging and telemetry to eval for afib given renal infarct on imaging - OR Tu02/22 for L fem-pop bypass - Q4h NV monitoring - elevate LLE - Heparin gtt to warfarin bridge, now INR therapeutic. Heparin gtt stopped. - Post operative toe amputations, see gangrene. Critical limb ischemia of left lower extremity 0 02/15/2022 Overview (03/07/2022): Added automatically from request for surgery [id number] Aftercare following surgery of the circulatory s ystem 11/06/2019 Gangrene ([facility]/HCC) 10/09/2019 Overview (10/14/2019): Added automatically from request for surgery [id number] Assessment & Plan (03/16/2022 9:43 AM CDT): - OR 03/01 for left 2nd and 3rd toe amputations. - ID consulted for positive OR cx (grew Stenotrophomonas) Started levofloxacin/flagyl (03/04). - Remaining toes with worsening appearance, returned to OR on 03/09 for Left TMA. Were concerns for residual bone infections. - Operative cultures with VRE and stenotrophomonas. ID final recs: Medication Recommendations: Drug(s): Antibiotics for IV Signoff: Daptomycin 900 (8mg/kg)mg IV every 24 hours Duration 6 weeks, PO minocycline 100 mg BID, PO metronidazole 500 mg TID Firm Stop (Yes/No): Yes Anticipated Stop Date (note, the following date does not imply an order to stop on that date): 04/20 Labs/Frequency to be Monitored: CBC once a week , CMP once a week and CPK twice a week - PICC line placed 03/14. - Awaiting home infusion set up for discharge. - Non weight bearing, okay for bathroom privileges with heel strike shoe. - Betadine paint and dry dressing changes to TMA site. Resolved Problems Problem Noted Date Diagnosed Date Resolved Date Ischemic toe 10/09/2019 02/15/2022 Overview (10/09/2019): Added automatically from request for surgery [id number] Social History Tobacco Use Types Packs/Day Years Used Date Smoking Tobacco: Former Cigarettes 3.5 43.3 1 979 - 02/14/2022 Passive Smoke Exposure: Current Smokeless Tobacco: Never Tobacco Cessation:Counseling Given: Not Answered Alcohol Use Standard Drinks/Week Comments Yes 0 (1 standard drink = 0.6 oz pur e alcohol) Social Connection and Isolation Panel [NHANES] A nswer Date Recorded Frequency of Communication with Friends and Fami ly Once a week 11/08/2019 Frequency of Social Gatherings with Friends and Family Once a week 11/08/2019 Attends Anabaptist Services Never 11/08 Active Member of Clubs or Organizations No 11/08/2019 Attends Club or Organization Meetings Never 11/08/2019 Marital Status 11/08/2019 AUDIT-C Answer Date Recorded Q1: How often do you have a drink containing alc ohol? 2-4 times a month 02/05/2024 Q2: How many drinks containi ng alcohol do you have on a typical day when you are drinking? 3 or 4 02/05/2024 Q3: How often do you have si x or more drinks on one occasion? Never 02/05/2024 Overall Financial Resource Strain (CARDIA) Answe r Date Recorded Difficulty of Paying Living Expenses Somewhat grady rd 11/08/2019 PHQ-2 Answer Date Recorded PHQ-2 Total Score (If total score is 3 or more points, staff should administer the PHQ-9) 0 02/05/2024 Hunger Vital Sign Answer Date Recorded Worried About Running Out of Food in the Last Ye ar Never true 11/08/2019 Ran Out of Food in the Last Year Never true 11/08/2019 PRAPARE - Transportation Answer Date Re corded Lack of Transportation (Medical) No 11/08/2019 Lack of Transportation (Non-Medical) No 11/08/2019 Personal Safety Answer Date Recorded Have you ever been in or are you currently in a harmful physical or emotional relationship or is someone making you feel afraid or unsafe? Denies 02/05/2024 Sex and Gender Information Value Date Recorded Sex Assigned at Not on file Legal Sex Male 3:20 PM MARBLE MECHANIC HELPER Gender Identity Not on file Sexual Orientation Not on file Last Filed Vital Signs Vital Sign Reading Time Taken Comments Blood Pressure 128/73 02/06/2024 5:15 AM CDT Pulse 85 02/06/2024 5:15 AM CDT Temperature 36.5 C (97.7 F) 02/06/2024 5:15 AM CDT Respiratory Rate 16 02/06/2024 5:15 AM CDT Oxygen Saturation 96% 02/06/2024 5:15 AM CDT Inhaled Oxygen Concentration - - Weight 124 kg (273 lb 5.9 oz) 02/05/2024 9:25 PM CDT Height 188 cm (6' 2 ) 02/05/2024 9:25 PM CDT Body Mass Index 35.1 02/05/2024 9:25 PM CDT Plan of Treatment Not on file Medical Devices Implanted Type Area Orthopaedic Nurse Device Identifier Shelf Expiration Date Model / Serial / Lot Ni Vascular Device Clsr Perclose Prostyle Sut-Mediatd Closure-Repair Sys [id number] - [id number] - [id number] Implanted:Qty: 1 on 09/13/2022 by Aman Whitfield MD PhD at [facility] Other - see comments [employer] V[employer] 03/14/2024 [id number] / [id number] / [id number] Description:perclose Procedures Procedure Name Priority Date/Time Associated Diagnosis Comments HEPATITIS C ANTIBODY Routine 11/07/2019 2:16 PM MARBLE MECHANIC HELPER from Last 3 Months or Most Recently Relevant to Health Maintenance Results * Hepatitis C antibody (11/07/2019 2:16 PM MARBLE MECHANIC HELPER) Hep C Ab Nonreactive Nonreactive [facility] Comment: Interpretive Data Positive results should be confirmed by a molecular method. If positive, a second separately collected sample should be submitted for Hepatitis C Virus (HCV) RNA Detection and Quantitation by Real-Time Reverse Family Service Caseworker-PCR (RT-PCR). Current interpretive data was last revised on 2016. Blood specimen (specimen) 11/07/2019 2:16 PM MARBLE MECHANIC HELPER 11/07/2019 2:52 PM MARBLE MECHANIC HELPER us Notinfile Unknown LAB MICROBIOLOGY - GENERAL ORD ERABLES Edited Result - Final [facility] Department [place] [address] from Last 3 Months or Most Recently Relevant to Health Maintenance Insurance [facility] MEDICARE ADVANTAGE MEDICARE [employer]PA [employer] [facility] MEDICARE ADVANTAGE Advance Directives For more information, please contact: [phone] Documents on File Type Date Recorded Patient Directory Operator Expl anation ADVANCE DIRECTIVE 10/11/2019 4:21 PM ALEXSANDER R [employer] ADVANCE DIRECTIVE 10/11/2019 4:21 PM ALEXSANDER R [employer] * Full Code (Latest Code Status on File) Date Activated Date Inactivated Comments 02/05/2024 9:27 PM 02/06/2024 4:53 PM * Full Code Date Activated Date Inactivated Comments 09/13/2022 2:52 PM 09/14/2022 6:20 PM * Full Code Date Activated Date Inactivated Comments 05/10/2022 2:45 PM 05/16/2022 9:21 PM * Full Code Date Activated Date Inactivated Comments 03/01/2022 10:27 AM 03/17/2022 7:24 PM * Full Code Date Activated Date Inactivated Comments 02/15/2022 6:26 PM 03/01/2022 10:27 AM Care Teams Mainframe Software Developer Relationship Specialty Start Date End Date Jose Angel Johnson MD [address] [place], [place] [id number] PCP - General 10/09/19 Aman Whitfield MD PhD [address] [place] [address] Surgeon Vascular Surgery 10/21/19
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
[2025-02-26 09:00] LABS: Hematocrit 43.7 % (40.0-54.0); Hemoglobin 14.1 g/dL (14.0-18.0); Mean Corpuscular HGB Conc 32.3 g/dL (32-36); Mean Corpuscular Hemoglobin 28.8 pg (27.0-31.0); Mean Corpuscular Volume 89.2 fL (78.0-102.0); Mean Platelet Volume 8.6 fl (8.7-11.0); Platelet Count Result 243 K/mm3 (150-420); White Blood Count 7.5 K/mm3 (4.8-10.8)
[2025-02-26 10:33] LABS: Alanine Aminotransferase 12 U/L (6-50); Alkaline Phosphatase 57 U/L (38-126); Anion Gap 5 mmol/L (4-12); Aspartate Amino Transferase 17 U/L (17-59); Bilirubin,Total 0.3 mg/dL (0.2-1.3); Blood Urea Nitrogen 13 mg/dL (9-20); Calcium 8.3 mg/dL (8.4-10.2); Carbon Dioxide 26 mmol/L (22-30); Chloride 108 mmol/L (98-107); Cholesterol 114 mg/dL (0-200); Creatine Kinase 100 U/L (55-170); Estimated Glomerular Filt Rate > 60; Glucose 96 mg/dL (65-110); HDL Direct 24 mg/dL; LDL Cholesterol Calculated 37 mg/dL (<130); Osmolality Calculated 288 mOsm/kg (285-295); Sodium 139 mmol/L (137-145); Total Protein 6.1 g/dL (6.3-8.2); Triglycerides 265 mg/dL (<150)
[2025-02-26 11:02] LABS: Prostate Specific Antigen 1.2 ng/mL (< OR = 4.0)
[2025-02-26 11:33] LABS: Hemoglobin A1C 5.4 % (<5.7)
== END 2025-02-26 08:44 | disposition home or self-care (01) ==
PROVIDERS: PCP Internal Medicine; Visit Provider Internal Medicine
DX: I10 Essential (primary) hypertension (principal); E78.2 Mixed hyperlipidemia; R73.01 Impaired fasting glucose; D64.9 Anemia, unspecified; Z12.5 Encounter for screening for malignant neoplasm of prostate
CPT/HCPCS: 36415; 80053; 80061; 82550; 83036; 84153; 85027; G0103

== ENCOUNTER 2025-02-27 13:04 | Outpatient (CLI) | payer MEDICARE, SELFPAY ==
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
--- OUTSIDE RECORDS SUMMARY | 2025-02-27 13:12 | XMS_ITS | Clinical Summary ---
Author Organization [facility] Address [address] [place], [place] [id number] Care Team Providers Care Nuclear Auxiliary Operator Name Role Phone Jose Angel Johnson MD Primary Care Provider [phone] Social History Tobacco Use Types Packs/Day Years [...] this topic Insurance MEDICARE MEDICAID Care Teams Nuclear Auxiliary Operator Relationship Specialty Start Date End Date Jose Angel Johnson MD [address] [place] [id number] PCP - General INTERNAL MEDICINE 03/08/23
--- OUTSIDE RECORDS SUMMARY | 2025-02-27 13:12 | XMS_ITS | Clinical Summary ---
Author Organization [facility] Address [address] [place]: Epic Prelude ADT [place] [address] Care Team Providers Care Iron Bender Name Role Phone Unavailable Primary Care Provider Unavailabl e Social History Tobacco Use Types Packs/Day Years Used Date Smoking Tobacco: Never Assessed Sex and Gender Information Value Date Recorded Sex Assigned at Not on file Legal Sex Male 4:20 AM ASIAN ART CURATOR Gender Identity Not on file Sexual Orientation [...]
--- OUTSIDE RECORDS SUMMARY | 2025-02-27 13:12 | XMS_ITS | Clinical Summary ---
Author Organization [facility] Address [address] [place] [address] Care Team Providers Care Automatic Developer Name Role Phone Jose Angel Johnson MD Primary Care Provider + [phone] Aman Whitfield MD PhD Unavailable [phone] Allergies Active Allergy Reactions Criticality Noted Date [...] 1 tablet (50 mg total) by mouth ambulance mechanic before breakfast 06/18/20 23 Active amLODIPine (NORVASC) 5 mg tabletIndicati ons:hypertensi on Take 1 tablet (5 mg total) by mouth ambulance mechanic before breakfast 01/01/20 24 Active atorvastatin (LIPITOR) [...] 09/13/2022 Assessment & Plan (09/13/2022 3:05 PM WATER RESOURCE ENGINEER): - s/p Left TMA 03/06 with multiple revisions, completed IV ABX course 05/23. Patient with continued non healing wound. - Wound RN consult - Elevate LE while in bed Personal history of nicotine dependence 05/17/20 Obesity, unspecified 05/17/2022 [facility] (current) use of anticoagulants 2021 Other chronic [...] (05/04/2022): Added automatically from request for surgery [id number] Assessment & Plan (05/13/2022 1:04 PM CDT): [...] to Yanni at the infusion center in [place], she is aware that this will be [...] 02/15/2022 Assessment & Plan (09/13/2022 12:00 PM WATER RESOURCE ENGINEER): - Hx of ETOH abuse, CIWA protocol [...] 02/15/2022 Assessment & Plan (09/13/2022 3:04 PM WATER RESOURCE ENGINEER): - 09/13: Left femoral angioplasty and MANAGER CLIENT SERVICE atherectomy, L AT pedal puncture and recanalization [...] (03/07/2022): Added automatically from request for surgery [id number] Aftercare following surgery of the circulatory s ystem 11/06/2019 Gangrene ([facility]/HCC) 10/09/2019 Overview (10/14/2019): Added automatically from request for surgery [id number] Assessment & Plan (03/16/2022 9:43 AM CDT): [...] (10/09/2019): Added automatically from request for surgery [id number] Surgical History Surgery Date Site/Laterality Comments TONSILLECTOMY [...] and Family Once a week 11/08/2019 Attends Hinduism Services Never 11/08 Active Member of Clubs [...] on file Legal Sex Male 3:20 PM WATER RESOURCE ENGINEER Gender Identity Not on file Sexual Orientation [...] 11/07/2019, 10/12/2019 Medical Devices Implanted Type Area Pan Washer Hand Device Identifier Shelf Expiration Date Model / Serial / Lot Ni Vascular Device Clsr Perclose Prostyle Sut-Mediatd Closure-Repair Sys 04500-79 - [id number] - [id number] Implanted:Qty: 1 on 09/13/2022 by Aman Whitfield MD PhD at [facility] Other - see comments Ni V[employer] 03/14/2024 [id number] / [id number] / [id number] Description:perclose Procedures Procedure Name Priority Date/Time Associated Diagnosis Comments HEPATITIS C ANTIBODY Routine 11/07/2019 2:16 PM WATER RESOURCE ENGINEER from Last 3 Months or Most Recently Relevant to Health Maintenance Results * Hepatitis C antibody (11/07/2019 2:16 PM WATER RESOURCE ENGINEER) Hep C Ab Nonreactive Nonreactive [facility] Comment: Interpretive Data Positive results should be confirmed by a molecular method. If positive, a second separately collected sample should be submitted for Hepatitis C Virus (HCV) RNA Detection and Quantitation by Real-Time Reverse Bank Representative-PCR (RT-PCR). Current interpretive data was last revised on 2016. Blood specimen (specimen) 11/07/2019 2:16 PM WATER RESOURCE ENGINEER 11/07/2019 2:52 PM WATER RESOURCE ENGINEER us Notinfile Unknown LAB MICROBIOLOGY - GENERAL ORD ERABLES Edited Result - Final [facility] Department [place] [address] from Last 3 Months or Most Recently Relevant to Health Maintenance Insurance [facility] MEDICARE ADVANTAGE [facility]IC[facility] Address: [address] [address] [place] [address] MEDICARE IDPA [facility] MEDICARE ADVANTAGE [facility] Address: [address] [address] [place] [address] Advance Directives For more information, please contact: [phone] Documents on File Type Date Recorded Patient Drywall Finishing Foreman Expl anation ADVANCE DIRECTIVE 10/11/2019 4:21 PM ALEXSANDER R OF PERSONNEL COUNSELOR-MEDICAL ADVANCE DIRECTIVE 10/11/2019 4:21 PM ALEXSANDER R OF PERSONNEL COUNSELOR-MEDICAL * Full Code (Latest Code Status on [...] 6:26 PM 03/01/2022 10:27 AM Care Teams Automatic Developer Relationship Specialty Start Date End Date Jose Angel Johnson MD [address] [place] [address] PCP - General 10/09/19 Aman Whitfield MD PhD [address] [place] [address] Surgeon Vascular Surgery 10/21/19
--- OUTSIDE RECORDS SUMMARY | 2025-02-27 13:12 | XMS_ITS | Referral Summary ---
Author Organization [facility] Address [address] [place] [address] Care Team Providers Care Border Guard Name Role Phone Jose Angel Johnson MD Primary Care Provider + [phone] Aman Whitfield MD PhD Unavailable [phone] Allergies Active Allergy Reactions Criticality Noted Date [...] 1 tablet (50 mg total) by mouth direct care professional before breakfast 06/18/20 23 Active amLODIPine (NORVASC) 5 mg tabletIndicati ons:hypertensi on Take 1 tablet (5 mg total) by mouth direct care professional before breakfast 01/01/20 24 Active atorvastatin (LIPITOR) [...] 09/13/2022 Assessment & Plan (09/13/2022 3:05 PM VAULT CASHIER): - s/p Left TMA 03/06 with multiple revisions, completed IV ABX course 05/23. Patient with continued non healing wound. - Wound RN consult - Elevate LE while in bed Personal history of nicotine dependence 05/17/20 Obesity, unspecified 05/17/2022 senior living (current) use of anticoagulants 2021 Other chronic [...] (05/04/2022): Added automatically from request for surgery [id number] Assessment & Plan (05/13/2022 1:04 PM CDT): [...] to Yanni at the infusion center in [place], she is aware that this will be [...] 02/15/2022 Assessment & Plan (09/13/2022 12:00 PM VAULT CASHIER): - Hx of ETOH abuse, CIWA protocol [...] 02/15/2022 Assessment & Plan (09/13/2022 3:04 PM VAULT CASHIER): - 09/13: Left femoral angioplasty and ELECTRICIAN SHIP atherectomy, L AT pedal puncture and recanalization [...] (03/07/2022): Added automatically from request for surgery [id number] Aftercare following surgery of the circulatory s ystem 11/06/2019 Gangrene ([facility]/HCC) 10/09/2019 Overview (10/14/2019): Added automatically from request for surgery [id number] Assessment & Plan (03/16/2022 9:43 AM CDT): [...] (10/09/2019): Added automatically from request for surgery [id number] Social History Tobacco Use Types Packs/Day Years [...] and Family Once a week 11/08/2019 Attends [employer] Never 11/08 Active Member of Clubs [...] on file Legal Sex Male 3:20 PM VAULT CASHIER Gender Identity Not on file Sexual Orientation [...] on file Medical Devices Implanted Type Area Dock Builder Device Identifier Shelf Expiration Date Model / Serial / Lot Ni Vascular Device Clsr Perclose Prostyle Sut-Mediatd Closure-Repair Sys 21955-75 - [id number] - [id number] Implanted:Qty: 1 on 09/13/2022 by Aman Whitfield MD PhD at [facility] Other - see comments Ni V[employer] 03/14/2024 [id number] / [id number] / [id number] Description:perclose Procedures Procedure Name Priority Date/Time Associated Diagnosis Comments HEPATITIS C ANTIBODY Routine 11/07/2019 2:16 PM VAULT CASHIER from Last 3 Months or Most Recently Relevant to Health Maintenance Results * Hepatitis C antibody (11/07/2019 2:16 PM VAULT CASHIER) Hep C Ab Nonreactive Nonreactive [facility] Comment: Interpretive Data Positive results should be confirmed by a molecular method. If positive, a second separately collected sample should be submitted for Hepatitis C Virus (HCV) RNA Detection and Quantitation by Real-Time Reverse Canvas Cutter Hand-PCR (RT-PCR). Current interpretive data was last revised on 2016. Blood specimen (specimen) 11/07/2019 2:16 PM VAULT CASHIER 11/07/2019 2:52 PM VAULT CASHIER us Notinfile Unknown LAB MICROBIOLOGY - GENERAL ORD ERABLES Edited Result - Final [facility] [place] [address] from Last 3 Months or Most Recently Relevant to Health [place] [address] [facility] MEDICARE ADVANTAGE MEDICARE IDPA IDPA [facility] MEDICARE ADVANTAGE Advance Directives For more information, please contact: [phone] Documents on File Type Date Recorded Patient Supervisor Typesetting Expl anation ADVANCE DIRECTIVE 10/11/2019 4:21 PM ALEXSANDER R OF OPTICAL EFFECTS LINE UP PERSON-MEDICAL ADVANCE DIRECTIVE 10/11/2019 4:21 PM ALEXSANDER R OF OPTICAL EFFECTS LINE UP PERSON-MEDICAL * Full Code (Latest Code Status on [...] 6:26 PM 03/01/2022 10:27 AM Care Teams Border Guard Relationship Specialty Start Date End Date Jose Angel Johnson MD [address] [place], [place] [id number] PCP - General 10/09/19 Aman Whitfield MD PhD [address] [place] [address] Surgeon Vascular Surgery 10/21/19
[2025-02-27 13:22] LABS: Add Urine Microscopic? YES; Appearance Urine Clear (Clear); Bilirubin Urine Negative (Negative); Blood Urine Negative (Negative); Color Urine Yellow (Yellow); Glucose Urine UA Negative (Negative); Ketones Urine Negative (Negative); Leukocyte Esterase Ur Negative (Negative); Nitrate Urine Positive (Negative); Protein Urine 1+ (Negative); Urobilinogen Urine 0.2 mg/dL (0.2-1.0); pH Urine 6.5 (5.0-8.0)
[2025-02-27 13:31] LABS: Bacteria Urine Trace /hpf; RBC Urine None seen /hpf (0-2); Squamous Epithelial Cell Urine Rare /hpf (Few); WBC Urine 0-3 /hpf (0-3)
== END 2025-02-27 13:05 | disposition home or self-care (01) ==
LOC: CHSLAB 13:06
PROVIDERS: PCP Internal Medicine; Visit Provider Internal Medicine
DX: I10 Essential (primary) hypertension (principal); E78.2 Mixed hyperlipidemia; R73.01 Impaired fasting glucose; D64.9 Anemia, unspecified
CPT/HCPCS: 81001

== ENCOUNTER 2025-03-26 12:54 | Outpatient (CLI) | payer MEDICARE, SELFPAY ==
--- NOTE | ~2025-03-26 | CT_ITS ---
CT Scan of the Chest without Contrast: Clinical Indication: Lung cancer screening, nicotine dependence Technique: Contiguous sections were acquired throughout the chest without intravenous contrast. Dose reduction technique was used on this scan by utilizing automated exposure control and iterative recon struction technique. The dose-length product (DLP) was 228.99 mGy-cm. COMPARISON: 02/07/2024 Findings: There is no evidence of any significant mediastinal, hilar or axillary lymphadenopathy. Coronary wayne ry calcifications are present. There is no evidence of pleural or pericardial effusion. There is right basilar scarring and/or atelectasis. Calcified left midlung granuloma noted. Images through the upper abdomen reveal no abnormalities. Impression: Lung RADS 2: Benign appearance. 12 month follow-up screening CT advised. Reviewed, dictated and finalized at [facility]. Impression: Lung RADS 2: Benign appearance. 12 month follow-up screening CT advised.
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
--- OUTSIDE RECORDS SUMMARY | 2025-03-26 14:58 | XMS_ITS | Clinical Summary ---
Author Organization [facility] Address [address] [place]: Epic Prelude ADT [place] [address] Care Team Providers Care Tire Center Manager Name Role Phone Unavailable Primary Care Provider Unavailabl e Social History Tobacco Use Types Packs/Day Years Used Date Smoking Tobacco: Never Assessed Sex and Gender Information Value Date Recorded Sex Assigned at Not on file Legal Sex Male 4:20 AM RECOVERY SPECIALIST Gender Identity Not on file Sexual Orientation [...]
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
== END 2025-03-26 12:55 | disposition home or self-care (01) ==
LOC: CHSIMG 12:57
PROVIDERS: PCP Internal Medicine; Visit Provider Internal Medicine
DX: Z12.2 Encounter for screening for malignant neoplasm of respiratory organs (principal); Z87.891 Personal history of nicotine dependence
CPT/HCPCS: 71271